=== PATIENT | male | born 1940 | race Caucasian/White ===

== ENCOUNTER 2021-06-04 01:10 | Day surgery (SDC) | payer MEDICARE, OTHER, SELFPAY ==
[2021-05-22 14:16] VITALS: BMI 26.0
--- NOTE | 2021-06-04 08:30 | P.CONGI_ITS ---
Assessment and Plan Assessment and plan (1) Dysphagia: Code(s): R13.10 - Dysphagia, unspecified Status: Acute Assessment and Plan: Patient has difficulty swallowing. Food appears to hang up in the throat are a. His this is suspicious for narrowing of the esophagus. Plan is for EGD to assess more thoroughly. It additional suggestions will be given after endoscopy. GI Consult Note Consult date/time: 06/04/21 08:30 HPI: Elpidio Wong is a 80 year old male Presents for EGD. Patient complains of difficulty swallowing for several years. He states the food will hang up in his throat. States he sometimes will have trouble breathing. He will have a small cough and half to clear his throat. He states passing liquids with no difficulty. Food itself will pass if he accompanies liquids with that. Patient denies any bleeding. He denies any weight loss. He denies any pain. He has had no heartburn or known history of acid reflux disease. Patient presents for EGD to evaluate more thoroughly. Review of Systems Review of Systems: All systems reviewed & are unremarkable except as noted in HPI and below PMFSH Past Medical History Medical History Cognitive impairment, mild, so stated Major depressive disorder, single episode, unspecified Primary generalized (osteo)arthritis Vitamin D deficiency Surgical History Surgical History History of bilateral knee replacement History of carpal tunnel release Family History Family History Sibling Patient's sister is in good health Family history of lung cancer, Onset Age: 76 Patient's brother is Father Family history of malignant neoplasm, Onset Age: 89 Patient's father is Mother Patient's mother is Social History Social History Smoking packs per day: 0.5 Smoking cigarettes per day: 10.0 Years smoked: 30 Smoking pack-years: 15.00 Smoking status: Never smoker Tobacco type: cigarettes Smokeless tobacco user: chewing tobacco Smoking end date: 11/29/69 Alcohol intake: current Drinks per week: 14 Living arrangements: with family Spiritual care concerns: No Meds Home Medications and Allergies Home Medications Medication Instructions Recorded Confirmed Type donepezil 5 mg tablet 5 mg PO ONCE 10/31/19 05/22/21 History levothyroxine 50 mcg tablet 50 mcg PO DAILY 10/31/19 05/22/21 History aspirin 325 mg tablet 325 mg PO DAILY 07/31/20 05/22/21 History citalopram 20 mg tablet 20 mg PO DAILY #90 tablet 02/11/21 05/22/21 Rx gabapentin 300 mg capsule 300 mg PO TID #90 cap 06/03/21 06/04/21 Rx Allergies Allergy/AdvReac Type Severity Reaction Status Date / Time No Known Allergies Allergy Unknown Verified 06/04/21 08:30 Exam Narrative: Exam Narrative: Physical exam reveals patient be alert. Vital signs stable. HEENT exam is unremarkable. Patient is anicteric. Lungs are clear to auscultation and percussion. Heart is without murmur or extra sounds. Abdominal exam bowel sounds are present soft nontender with no hepatosplenomegaly. Rectal exam is deferred today.
[2021-06-04 08:31] VITALS: BP 125/91; PULSE 51; RESP 20; TEMP 35.8; O2SAT 98; BMI 26.7
[2021-06-04] MEDS: LACTATED RINGERS 1,000 ML 150 ML IV CONT (08:39)
[2021-06-04] MEDS: AMPICILLIN 2 GM/NS 100 ML 2 GM/100 ML BAG IVPB (08:43)
[2021-06-04] MEDS: GENTAMICIN 80MG/SOD CHL 50 ML 80 MG/50 ML BAG 100 MG IVPB (09:12)
--- NOTE | 2021-06-04 09:13 | WPDANESEPPF ---
Anes - Initial Pre Proc Eval Procedure: Operation Date: 06/04/21 09:30 Proposed Procedures p Esophagogastroduodenoscopy - Gualberto Neff MD Date/Time: 06/04/21 09:13 Surgeon: Gualberto Neff MD Pre Op Diagnosis: dysphagia Patient Data Age: 80 Gender: M Height: 1.75 m Weight: 82.2 kg Last Vital Signs Temp 96.4 F L 06/04/21 08:31 Pulse 51 L 06/04/21 08:31 Resp 20 06/04/21 08:31 BP 125/91 H 06/04/21 08:31 Pulse Ox 98 06/04/21 08:31 Allergies Allergy/AdvReac Type Severity Reaction Status Date / Time No Known Allergies Allergy Unknown Verified 06/04/21 08:30 Home Medications Medication Instructions Recorded Confirmed Type donepezil 5 mg tablet 5 mg PO ONCE 10/31/19 05/22/21 History levothyroxine 50 mcg tablet 50 mcg PO DAILY 10/31/19 05/22/21 History aspirin 325 mg tablet 325 mg PO DAILY 07/31/20 05/22/21 History citalopram 20 mg tablet 20 mg PO DAILY #90 tablet 02/11/21 05/22/21 Rx gabapentin 300 mg capsule 300 mg PO TID #90 cap 06/03/21 06/04/21 Rx Patient hx anesthesia problems: none Family hx anesthesia problems: none PMFSH Past Medical History Medical History Cognitive impairment, mild, so stated Major depressive disorder, single episode, unspecified Primary generalized (osteo)arthritis Vitamin D deficiency Surgical History Surgical History History of bilateral knee replacement History of carpal tunnel release Family History Family History Sibling Patient's sister is in good health Family history of lung cancer, Onset Age: 76 Patient's brother is Father Family history of malignant neoplasm, Onset Age: 89 Patient's father is Mother Patient's mother is Social History Social History Smoking packs per day: 0.5 Smoking cigarettes per day: 10.0 Years smoked: 30 Smoking pack-years: 15.00 Smoking status: Never smoker Tobacco type: cigarettes Smokeless tobacco user: chewing tobacco Smoking end date: 11/29/69 Alcohol intake: current Drinks per week: 14 Living arrangements: with family Spiritual care concerns: No Anes - Eval Final PreProcedure Day of Procedure 06/04/21 09:13 Patient weight: overweight Heart: regular rate and rhythm Lungs: clear to auscultation Airway: Mallampati scale class II Neurological: alert and oriented Last oral intake: >/= 8 hours ASA classification: III Emergent: no Anesthetic plan: proceed Anesthesia type and monitoring: general GIVS and standard monitoring Informed Consent: The patient's anesthetic plan and its attendant risks and benefits were discussed with the patient/family/POA. Questions were solicited and answers provided to the satisfaction of the patient/family/POA.
[2021-06-04 09:36] VITALS: BP 122/58; PULSE 55; RESP 18; O2SAT 98
[2021-06-04 09:46] VITALS: BP 118/62; PULSE 50; RESP 20; O2SAT 98
[2021-06-04 09:56] VITALS: BP 129/63; PULSE 52; RESP 17; O2SAT 98
== END 2021-06-04 10:22 | disposition home or self-care (01) ==
PROVIDERS: PCP Internal Medicine; Visit Provider Internal Medicine Gastroenterology
PROC: 0DJ08ZZ Inspection of Upper Intestinal Tract, Via Natural or Artificial Opening Endoscopic (ICD-10-PCS; CPT 43235; principal; 2021-06-04 09:30)
DX: Q39.4 Esophageal web (principal); E55.9 Vitamin D deficiency, unspecified; F32.9 Major depressive disorder, single episode, unspecified; G31.84 Mild cognitive impairment of uncertain or unknown etiology; M19.90 Unspecified osteoarthritis, unspecified site; Z87.891 Personal history of nicotine dependence; Z79.82 Long term (current) use of aspirin
CPT/HCPCS: 43450; 43235; J0290; J1580; J2704; J7120

== ENCOUNTER 2021-12-17 10:02 | Outpatient (CLI) | payer MEDICARE, OTHER, SELFPAY ==
--- NOTE | 2021-12-17 11:00 | NEURO_ITS ---
Impression: # Complains of numbness of both hands. Has arthritic hands. # Bilateral Carpal Tunnel Syndrome, right more than left. # No ulnar neuropathy. # Abnormal needle/EMG exam. Nerve Conduction Studies Anti Sensory Summary Table Stim Site NR Peak (ms) P-T Amp (?V) Site1 Site2 Delta-P (ms) Dist (cm) Paulie (m/s) Left Median Anti Sensory (2-3nd Digit) Wrist 4.8 21.1 Wrist 2-3nd Digit 4.8 14.0 29 Wrist 4.1 13.7 Wrist 2-3nd Digit 4.8 14.0 29 Right Median Anti Sensory (2-3nd Digit) Wrist 6.0 26.0 Wrist 2-3nd Digit 6.0 14.0 23 Wrist 4.6 18.0 Wrist 2-3nd Digit 6.0 14.0 23 Left Radial Anti Sensory (Base 1st Digit) Wrist 2.5 9.2 Wrist Base 1st Digit 2.5 0.0 Right Radial Anti Sensory (Base 1st Digit) Wrist 3.3 12.5 Wrist Base 1st Digit 3.3 0.0 Left Ulnar Anti Sensory (5th Digit) Wrist 2.9 29.4 Wrist 5th Digit 2.9 14.0 48 Right Ulnar Anti Sensory (5th Digit) Wrist 2.8 16.0 Wrist 5th Digit 2.8 14.0 50 Motor Summary Table Stim Site NR Onset (ms) O-P Amp (mV) Site1 Site2 Delta-0 (ms) Dist (cm) Paulie (m/s) Left Median Motor (Abd Poll Brev) Wrist 4.4 2.3 Elbow Wrist 6.1 32.0 52 Elbow 10.5 3.1 Right Median Motor (Abd Poll Brev) Wrist 5.3 1.7 Elbow Wrist 5.9 29.0 49 Elbow 11.2 1.4 Left Ulnar Motor (Abd Dig Minimi) Wrist 2.7 5.6 A Elbow Wrist 6.1 32.0 52 A Elbow 8.8 3.8 Right Ulnar Motor (Abd Dig Minimi) Wrist 2.9 3.2 A Elbow Wrist 5.7 31.0 54 A Elbow 8.6 2.9 F Wave Studies NR F-Lat (ms) L-R F-Lat (ms) Left Median (Mrkrs) (Abd Poll Brev) 29.68 0.70 Right Median (Mrkrs) (Abd Poll Brev) 28.98 0.70 Left Ulnar (Mrkrs) (Abd Dig Min) 25.89 0.25 Right Ulnar (Mrkrs) (Abd Dig Min) 25.64 0.25 EMG Side Muscle Nerve Root Ins Act Fibs Amp Dur Recrt Comment Right 1stDorInt Ulnar C8-T1 Nml Nml Nml Nml Nml Right Ext Indicis Radial (Post Int) C7-8 Nml Nml Nml Nml Nml Right Ext Digitorum Radial (Post Int) C7-8 Nml Nml Nml Nml Nml Right BrachioRad Radial C5-6 Nml Nml Nml Nml Nml Right PronatorTeres Median C6-7 Nml Nml Nml Nml Nml Right Abd Poll Brev Median C8-T1 Nml Nml Nml >12ms Reduced Left 1stDorInt Ulnar C8-T1 Nml Nml Nml Nml Nml Left Ext Indicis Radial (Post Int) C7-8 Nml Nml Nml Nml Nml Left Ext Digitorum Radial (Post Int) C7-8 Nml Nml Nml Nml Nml Left BrachioRad Radial C5-6 Nml Nml Nml Nml Nml Left PronatorTeres Median C6-7 Nml Nml Nml Nml Nml Left Abd Poll Brev Median C8-T1 Nml Nml Nml Nml Nml Right ABD Dig Min Ulnar C8-T1 Nml Nml Nml Nml Nml Right Abd Poll Long Radial (Post Int) C7-8 Nml Nml Nml Nml Nml Left ABD Dig Min Ulnar C8-T1 Nml Nml Nml Nml Nml Left Abd Poll Long Radial (Post Int) C7-8 Nml Nml Nml >12ms Reduced MTDD
== END 2021-12-17 10:03 | disposition home or self-care (01) ==
PROVIDERS: PCP Internal Medicine; Visit Provider Psychiatry & Neurology Neurology
DX: G56.03 Carpal tunnel syndrome, bilateral upper limbs (principal); R94.131 Abnormal electromyogram [EMG]
CPT/HCPCS: 95886; 95911

== ENCOUNTER 2022-04-27 16:45 | Emergency (ER) | payer MEDICARE, OTHER, SELFPAY ==
--- NOTE | ~2022-04-27 | XR_ITS ---
XR forearm LT 2V 04/27/2022 17:05 INDICATION: Left forearm pain PROCEDURE: 2 views left forearm COMPARISON: 02/26/2022 FINDINGS: Fracture, dislocation or subluxation is not identified. Osteopenia. The soft tissues appear within normal limits. No foreign bodies are identified. 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 There is a intramedullary nubia transfixing the ulna. IMPRESSION: 1: NO ACUTE BONE OR JOINT ABNORMALITY IDENTIFIED. Reviewed, dictated and finalized at location A.
--- NOTE | 2022-04-27 16:48 | ED.EXTPRO ---
HPI - Extremity Problem General Stated complaint: Left elbow Time Seen by Provider: 04/27/22 16:58 Source: patient and RN notes reviewed Mode of arrival: ambulatory Limitations: no limitations History of Present Illness HPI Narrative: 81-year-old male presents with concern for left elbow injury. Reports 1 hour ago he tripped on a rug, landed on the elbow on a carpeted floor. He reports history of previous injury in the elbow for which she had surgery. He reports 0/10 pain at rest, 8/10 pain with range of motion. Reports medial tenderness to the joint. He denies lacerations, abrasions, bruising, swelling, redness, warmth. Complaint: extremity pain Related Data Home Medications Medication Instructions Recorded Confirmed aspirin 325 mg tablet 325 mg PO DAILY 07/31/20 04/20/22 tamsulosin 0.4 mg capsule cap PO 04/27/22 Allergies Allergy/AdvReac Type Severity Reaction Status Date / Time No Known Allergies Allergy Unknown Verified 04/20/22 14:04 Review of Systems Review of Systems: CONSTITUTIONAL: Denies malaise, chills, sweats, or fever. CARDIOVASCULAR: Denies chest pain, palpitations, or edema. RESPIRATORY: Denies cough or dyspnea. SKIN: Denies rash or itching, bruising, redness, swelling. MUSCULOSKELETAL: Reports left elbow pain NEUROLOGIC: Denies numbness, weakness All systems reviewed & are unremarkable except as noted in HPI and below PMFSH Past Medical History Medical History Arthritis Claustrophobia Cognitive impairment, mild, so stated Hearing loss Major depressive disorder, single episode, unspecified Pacemaker Primary generalized (osteo)arthritis SOB (shortness of breath) on exertion Vitamin D deficiency Wears glasses Surgical History Surgical History History of bilateral knee replacement History of carpal tunnel release History of heart valve replacement aortic valve Family History Family History Sibling Patient's sister is in good health Family history of lung cancer, Onset Age: 76 Patient's brother is Father Family history of malignant neoplasm, Onset Age: 89 Patient's father is Mother Patient's mother is Social History Social History Smoking status: Former smoker Tobacco type: cigarettes Smokeless tobacco user: chewing tobacco Smoking end date: 11/29/69 Alcohol intake: current Drinks per week: 6 Substance use: never Substance use type: does not use Gender identity (if verbalized by the patient): Male Spiritual care concerns: No Comments At time of signature, agree with nursing past medical, surgical, social and family history. There is no relevant family history pertinent to the presenting complaint Exam Narrative: GENERAL: Well-appearing, well-nourished, and in no acute distress. HEAD: Normocephalic, atraumatic. EYES: PERRLA, conjunctivae clear NECK: Supple. CHEST: Speaks in full sentences. No respiratory distress. HEART: Regular rate and rhythm. Normal and equal peripheral pulses. EXTREMITIES: Left elbow, hand, digits have normal strength and sensation, normal range of motion. No edema or ecchymosis. 5/5 strength with elbow, wrist and digit flexion and extension. Normal sensation with sensitivity to light touch and pain. Medial elbow tenderness. No open wounds, no skin tenting, no devitalized tissue or atrophy, no trophic changes, no obvious deformity, alignment normal, nearby joints and structures intact. Distal pulses palpable and equal bilaterally, skin warm, dry, pink. Capillary refill less than 3 seconds. SKIN: Warm, dry, no rash. NEURO: Alert and oriented x3. PSYCH: Normal mood and affect Course Course Emergency Course: Patient is aware of diagnosis, understands and agrees to treatme
[2022-04-27 17:02] VITALS: BP 103/48; PULSE 64; RESP 16; TEMP 36.3; O2SAT 98
== END 2022-04-27 17:30 | disposition home or self-care (01) ==
PROVIDERS: Emergency Provider Nurse Practitioner; PCP Internal Medicine
DX: S53.402A Unspecified sprain of left elbow, initial encounter (principal); W18.09XA Striking against other object with subsequent fall, initial encounter; M19.90 Unspecified osteoarthritis, unspecified site; Z95.0 Presence of cardiac pacemaker; F40.240 Claustrophobia
CPT/HCPCS: 73090; 99213; A4565; G0463

== ENCOUNTER → 2022-06-24 07:44 | Outpatient (CLI) | payer MEDICARE, OTHER, SELFPAY ==
--- NOTE | ~2022-06-24 | XR_ITS ---
EXAMINATION: XR lumbar spine 2-3V DATE: 06/24/2022 08:05 INDICATION: Low back pain TECHNIQUE: Anteroposterior and lateral views of the lumbar spine, and cone-down lateral view of the l umbosacral junction were obtained. COMPARISON: CT, 10/09/2015 FINDINGS: There are 2 mm of retrolisthesis of L2 on L3. The vertebral body heights are normal. There is no fracture. There is mild loss of intervertebral disc space height at L5-S1. Small degenerative o steophytes project from the anterior endplates of multiple vertebral bodies. Moderate facet osteoarth ritis is noted in the lower lumbar spine. IMPRESSION: 1. Moderate lumbar spondylosis without acute findings or significant interval change. Reviewed, dictated and finalized at location B. IMPRESSION: 1. Moderate lumbar spondylosis without acute findings or significant interval nayeli yung
== END ==
PROVIDERS: PCP Internal Medicine; Visit Provider Nurse Practitioner
DX: M47.817 Spondylosis without myelopathy or radiculopathy, lumbosacral region (principal)
CPT/HCPCS: 72100

== ENCOUNTER 2022-11-19 14:16 | Emergency (ER) | payer MEDICARE, SELFPAY ==
--- NOTE | ~2022-11-19 | XR_ITS ---
AP view of the pelvis and AP and lateral views of the right hip Clinical history: Pain Findings: No acute fracture or dislocation is seen. Osseous alignment is anatomic. Bilateral hip and SI joint spaces are preserved. Vascular calcifications noted. Impression: No significant abnormality is seen. Reviewed, dictated and finalized at [facility]. ING MACHINE OPERATOR Impression: No significant abnormality is seen.
--- NOTE | ~2022-11-19 | XR_ITS ---
AP and lateral views of the right femur Clinical History: Pain Findings: No acute fracture or dislocation is seen. Osseous alignment is anatomic. Right hip joint sp mavis is preserved. Right total knee arthroplasty hardware noted. Vascular calcifications are present. Impression: No acute abnormality. Right knee arthroplasty hardware present. Reviewed, dictated and finalized at [facility]. MANAGER Impression: No acute abnormality. Right knee arthroplasty hardware present.
--- NOTE | 2022-11-19 14:26 | ED.LOWEXIN ---
HPI - Extremity Injury (Lower) General Chief Complaint: Extremity Injury, Lower Stated Complaint: fall and injury to right thigh Time Seen by Provider: 11/19/22 14:26 Source: patient, RN notes reviewed and old records reviewed Mode of arrival: ambulatory Limitations: no limitations History of Present Illness HPI Narrative: 82-year-old male presents to the [facility] after slipping and falling landing on his right hip and thigh. Denies hitting head. No loss of consciousness. Denies any chest pain or abdominal pain. Took some ibuprofen applied ice prior to arrival. Related Data Home Medications Medication Instructions Recorded Confirmed aspirin 325 mg tablet 325 mg PO DAILY 07/31/20 11/19/22 Allergies Allergy/AdvReac Type Severity Reaction Status Date / Time No Known Allergies Allergy Unknown Verified 11/19/22 14:17 Review of Systems Review of Systems: All systems reviewed & are unremarkable except as noted in HPI and below Constitutional: Constitutional: Reports no additional constitutional complaints Eyes: Eyes: Reports no additional eye complaints ENT: Reports system reviewed and no additional complaints, except as documented Cardiovascular: Cardiovascular: Reports no additional cardiovascular complaints, Denies chest pain and Denies dyspnea Respiratory: Respiratory: Reports no additional respiratory complaints, Denies chest congestion, Denies cough and Denies dyspnea Gastrointestinal: Gastrointestinal: Reports no additional gastrointestinal complaints, Denies abdominal pain, Denies nausea and Denies vomiting Musculoskeletal: Musculoskeletal: Reports as per HPI Integumentary/Breasts: Skin/Breast: Reports system reviewed and no additional complaints, except as docu Neurologic: Reports system reviewed and no additional complaints, except as documented Psychiatric: Psychiatric: Reports no additional psychiatric complaints Allergic/Immunologic: Allergic/Immunologic: Reports no additional allergic/immunologic complaints [facility] Past Medical History Medical History Aortic valvular stenoses Arthritis Carpal tunnel syndrome on both sides Claustrophobia Cognitive impairment, mild, so stated Complete heart block Hearing loss Major depressive disorder, single episode, unspecified Pacemaker Primary generalized (osteo)arthritis SOB (shortness of breath) on exertion Vitamin D deficiency Wears glasses Surgical History Surgical History History of bilateral knee replacement History of carpal tunnel release History of heart valve replacement aortic valve Family History Family History Sibling Patient's sister is in good health Family history of lung cancer, Onset Age: 76 Patient's brother is Father Family history of malignant neoplasm, Onset Age: 89 Patient's father is Mother Patient's mother is Social History Social History Smoking status: Former smoker Tobacco type: cigarettes Smokeless tobacco user: chewing tobacco Smoking end date: 11/29/69 Alcohol intake: current Drinks per week: 6 Substance use: never Substance use type: does not use Lack of Transportation: No Lack of Food: Never True Current Housing: I Have Housing Concerned About Future Housing: No Difficulty Paying Gas/Electric Bills: No Difficulty Paying for Meds: No Currently Unemployed: No Education: Trade/Vocational Certificate Difficulty w/ Childcare or Family Care: No Gender identity (if verbalized by the patient): Male Spiritual care concerns: No Comments At the time of my signature, I reviewed and agree with the nursing past medical, surgical, social, and family history. There is no relevant family history pertinen
[2022-11-19 14:27] VITALS: BP 160/57; PULSE 62; RESP 18; TEMP 36.5; O2SAT 100
== END 2022-11-19 15:35 | disposition home or self-care (01) ==
PROVIDERS: Emergency Provider Nurse Practitioner; PCP Internal Medicine
DX: S80.11XA Contusion of right lower leg, initial encounter (principal); Z79.82 Long term (current) use of aspirin; Z87.891 Personal history of nicotine dependence; W01.0XXA Fall on same level from slipping, tripping and stumbling without subsequent striking against object, initial encounter
CPT/HCPCS: 73502; 73552; 99214; G0463

== ENCOUNTER 2023-03-26 18:58 | Emergency (ER) | payer MEDICARE, SELFPAY ==
--- NOTE | ~2023-03-26 | XR_ITS ---
EXAMINATION: XR shoulder RT min 2V DATE: 03/26/2023 19:07 INDICATION: Right shoulder pain. Fall. TECHNIQUE: 3 views of right shoulder were obtained. COMPARISON: None. FINDINGS: There is an oblique fracture of right clavicle involving its distal third. The distal fract ure fragment demonstrates 6 mm superior displacement. There is heterotopic ossification in the area o f coracoclavicular ligament. There is severe osteoarthritis of acromioclavicular joint and moderate o steoarthritis of glenohumeral joint. There is a loose body in the glenohumeral joint. There is calcif ic tendinitis of the rotator cuff. Mediastinal wires are noted. Partially visualized are pacer wires. IMPRESSION: 1. Oblique fracture of distal clavicle. 2. Polyarticular osteoarthritis. 3. Loose body in the glenohumeral joint. 4. Calcific tendinitis of the rotator cuff. Reviewed, dictated and finalized at location E.
[2023-03-26 19:09] VITALS: BP 138/53; PULSE 58; RESP 18; TEMP 36.4; O2SAT 98
--- NOTE | 2023-03-26 19:14 | ED.UPPEXIN ---
HPI - Extremity Injury (Upper) General Chief Complaint: Extremity Injury, Upper Stated Complaint: R SHOULDER INJURY Time Seen by Provider: 03/26/23 19:14 Source: patient Mode of arrival: ambulatory Limitations: no limitations History of Present Illness HPI narrative: 82-year-old male presents with complaint of pain to right clavicle. Patient reports that he was in his garage today and tripped over a few boxes. Injury happened around noon. States he was not able to put his arms out in front of him to break his fall fast enough and fell on to his right shoulder. Denies hitting head. No LOC. Was able to get up on his own. Distal neurovascularly intact to right upper extremity. Ambulatory with steady gait. All systems reviewed and negative except as noted above. Related Data Home Medications Medication Instructions Recorded Confirmed aspirin 325 mg tablet 81 mg PO DAILY 03/15/23 03/26/23 Allergies Allergy/AdvReac Type Severity Reaction Status Date / Time No Known Allergies Allergy Unknown Verified 03/15/23 12:45 Review of Systems Review of Systems: CONSTITUTIONAL: Denies fever, chills, or sweats. EYES: Denies visual changes, redness, or discharge. ENT: Denies rhinorrhea, congestion, sore throat, or otalgia. CARDIOVASCULAR: Denies chest pain, palpitations, or edema. RESPIRATORY: Denies cough or dyspnea. GASTROINTESTINAL: Denies abdominal pain, nausea, vomiting, or diarrhea. GENITOURINARY: Denies dysuria or hematuria. SKIN: Denies rash or itching. MUSCULOSKELETAL: Denies back pain, joint pain, or myalgia. Reports pain to right clavicle. NEUROLOGIC: Denies headache, numbness, or weakness. PSYCHIATRIC: Denies anxiety or depression. All other systems reviewed are negative, except as documented in HPI. [facility] Past Medical History Medical History Aortic valvular stenoses Arthritis Carpal tunnel syndrome on both sides Claustrophobia Cognitive impairment, mild, so stated Complete heart block Hearing loss Major depressive disorder, single episode, unspecified Pacemaker Primary generalized (osteo)arthritis SOB (shortness of breath) on exertion Vitamin D deficiency Wears glasses Surgical History Surgical History History of bilateral knee replacement History of carpal tunnel release History of heart valve replacement aortic valve Family History Family History Sibling Patient's sister is in good health Family history of lung cancer, Onset Age: 76 Patient's brother is Father Family history of malignant neoplasm, Onset Age: 89 Patient's father is Mother Patient's mother is Social History Social History Smoking status: Former smoker Tobacco type: cigarettes Smokeless tobacco user: chewing tobacco Smoking end date: 11/29/69 Alcohol intake: current Drinks per week: 6 Substance use: never Substance use type: does not use Lack of Transportation: No Lack of Food: Never True Current Housing: I Have Housing Concerned About Future Housing: No Difficulty Paying Gas/Electric Bills: No Difficulty Paying for Meds: No Currently Unemployed: No Education: Trade/Vocational Certificate Difficulty w/ Childcare or Family Care: No Living arrangements: with family Occupation/Education: retired Gender identity (if verbalized by the patient): Male Spiritual care concerns: No Comments At time of signature, agree with nursing past medical, surgical, social and family history. There is no relevant family history pertinent to the presenting complaint. Exam Narrative: GENERAL: This is a well-nourished, well-developed patient, in no apparent distress. HEAD: normocephalic, atraumatic. EYES: PERRL. Sclera colin
== END 2023-03-26 19:33 | disposition home or self-care (01) ==
PROVIDERS: Emergency Provider Nurse Practitioner Family
DX: S42.031A Displaced fracture of lateral end of right clavicle, initial encounter for closed fracture (principal); W18.09XA Striking against other object with subsequent fall, initial encounter; M19.90 Unspecified osteoarthritis, unspecified site; Z95.0 Presence of cardiac pacemaker; Z79.82 Long term (current) use of aspirin; Z96.653 Presence of artificial knee joint, bilateral; Z95.2 Presence of prosthetic heart valve
CPT/HCPCS: 73030; 99213; A4565; G0463

== ENCOUNTER 2023-05-28 07:42 | Outpatient (CLI) | payer MEDICARE, SELFPAY ==
--- NOTE | ~2023-05-28 | CT_ITS ---
CT ANGIOGRAM NECK AND HEAD History: Aneurysm. Technique: Axial noncontrast imaging of the brain was performed. Serial spiral axial images through t he head and neck were then obtained during arterial phase IV injection of 100 cc of Omnipaque 350. 3- D postprocessing and MIP images were then reconstructed on the remote workstation. Dose reduction renita hnique was used on this scan by utilizing automated exposure control and iterative reconstruction renita hnique. The dose-length product (DLP) was 1566.14 mGy-cm. CTA neck findings: Bilateral vertebral arteries are patent. Bilateral common carotid, internal carot id, and external carotid arteries are patent. No large vessel occlusion. No aneurysm identified. Ther e is extensive calcified plaque at the right carotid bifurcation and proximal right ICA, with focal h igh-grade, approximately 95%, stenosis at the origin of the right internal carotid artery. There is a lso extensive calcified plaque at the left carotid bifurcation and proximal left internal carotid art acosta, with probable moderate, approximately 60%, stenosis at the proximal left internal carotid artery . The proximal right internal carotid artery demonstrates 95% stenosis relative to the normal distal ar hipolito lumen diameter. The proximal left internal carotid artery demonstrates 60% stenosis relative to the normal distal artery lumen diameter. Partially imaged bilateral pleural effusions are noted. CTA head findings: Distal vertebral arteries, basilar artery, and posterior cerebral arteries are pat ent. Distal internal carotid arteries, middle cerebral arteries, and anterior cerebral arteries are p atent. No large vessel occlusion. No stenosis or aneurysm. Axial noncontrast imaging of the brain is unremarkable. No mass lesion, infarct, or hemorrhage identi fied. Ventricles and subarachnoid spaces are unremarkable. Paranasal sinuses and mastoid air cells ar e clear. Impression: No aneurysm. High-grade (95%) stenosis at the origin of the right internal carotid artery, with extensive calcifie d plaque. Moderate grade (60%) stenosis at the proximal left internal carotid artery, with extensive calcified plaque. Partially imaged bilateral pleural effusions. Reviewed, dictated and finalized at location M. Impression: No aneurysm. High-grade (95%) stenosis at the origin of the right internal carotid artery, w ith extensive calcified plaque. Moderate grade (60%) stenosis at the proximal left internal carotid artery, wit h extensive calcified plaque. Partially imaged bilateral pleural effusions.
== END 2023-05-28 07:43 | disposition home or self-care (01) ==
PROVIDERS: PCP Family Medicine; Visit Provider Psychiatry & Neurology Neurology
DX: I65.23 Occlusion and stenosis of bilateral carotid arteries (principal); J90 Pleural effusion, not elsewhere classified
CPT/HCPCS: 70496; 70498; Q9967

== ENCOUNTER 2023-06-01 15:48 | Inpatient (IN) | payer MEDICARE, SELFPAY ==
[2023-06-01] VITALS (12 sets, daily range): BP systolic 112–139; BP diastolic 40–49; PULSE 54–120; RESP 17–21; TEMP 36.4–36.8; O2SAT 95–99
--- NOTE | ~2023-06-01 | US_ITS ---
EXAMINATION: US venous doppler [facility] DATE: 06/02/2023 13:06 INDICATION: Lower limb swelling TECHNIQUE: Grayscale ultrasound images without and with compression and Doppler ultrasound images of the bilateral lower extremity veins were obtained. COMPARISON: None. FINDINGS: The visualized portions of right common femoral vein, profunda (deep) femoral vein, femoral vein, pop liteal vein, posterior tibial veins, peroneal veins, gastrocnemius vein and greater saphenous vein ou tflow are patent. The visualized portions of left common femoral vein, profunda femoral vein, femoral vein, popliteal v ein, posterior tibial veins, peroneal veins, gastrocnemius vein and greater saphenous vein outflow ar e patent. IMPRESSION: 1. No deep venous thrombosis in either lower limb. Reviewed, dictated and finalized at location B.
--- NOTE | ~2023-06-01 | XR_ITS ---
Clinical Indication: Shortness of breath PA and lateral views of the chest: Comparison: 06/25/2019 Findings: There is mild bibasilar haziness/interstitial prominence. Probable minimal left pleural eff usion.. Cardiomediastinal silhouette is stable, now with pacemaker device. Bones and soft tissues ar e unremarkable. Impression: Probable mild bibasilar pulmonary edema versus chronic interstitial disease. Correlate clinically. Minimal left pleural effusion. Pacemaker device. Reviewed, dictated and finalized at location . Impression: Probable mild bibasilar pulmonary edema versus chronic interstitial disease. Co rrelate clinically. Minimal left pleural effusion. Pacemaker device.
--- NOTE | 2023-06-01 15:51 | ECG_ITS ---
Measurements Intervals [place] Rate: 62 P: -3 SC: 132 QRS: -68 QRSD: 210 T: 104 QT: 492 QTc: 502 Interpretive Statements ATRIAL SENSE- ELECTRONIC VENTRICULAR PACEMAKER BASELINE ARTIFACT- I, AVR NO FURTHER INTERPRETATION IS POSSIBLE ATYPICAL ECG COMPARED TO ECG 06/25/2019 22:14:59 VENTRICULAR PACEMAKER NOW PRESENT Electronically Signed On 06-01-2023 19:16:39 CDT by Tor Alba D.O.
[2023-06-01 16:13] LABS: Basophils Percent Auto 0.4 % (0.2-1.2); Eosinophils Absolute Auto 0.3 K/mm3 (0-0.3); Hematocrit 39.3 % (42.0-52.0); Hemoglobin 12.8 g/dL (14.0-18.0); Immature Granulocyte Absolute 0.01 K/mm3 (0.00-0.031); Immature Granulocyte Percent A 0.2 % (0-0.5); Lymphocytes Absolute Auto 1.66 K/mm3 (0.9-3.2); Mean Corpuscular HGB Conc 32.6 g/dl (32-36); Mean Corpuscular Hemoglobin 30.6 pg (26-34); Monocytes Absolute Auto 0.4 K/mm3 (0.1-0.6); Monocytes Percent Auto 7.7 % (2.6-8.5); Neutrophils Absolute Auto 2.8 K/mm3 (1.3-6.7); Neutrophils Percent Auto 53.7 % (45.5-73.1); Platelet Count Result 158 k/mm3 (150-375); Red Blood Count 4.18 M/mm3 (4.6-6.20); Red Cell Distribution Width 14.8 % (11.5-14.5); White Blood Count 5.2 K/mm3 (4.5-10.0)
[2023-06-01 16:20] LABS: INR 1.3; Prothrombin Time 17.2 Seconds (11.1-14.7)
[2023-06-01 16:21] LABS: Partial Thromboplastin Time 44.6 SECONDS (22.3-36.8)
--- NOTE | 2023-06-01 16:29 | ED.SOB ---
HPI - SOB/Dyspnea General Chief Complaint: Shortness of Breath/Dyspnea Stated Complaint: SOB- has heart problems Time Seen by Provider: 06/01/23 15:57 Source: patient Mode of arrival: ambulatory Limitations: no limitations History of Present Illness HPI Narrative: 82 years old white male came from home by private car complaining of shortness of breath for the last 4 days. Today is steady, worse on exertion, rest probably make it less prominent. Also complaining of tightness at the left chest. History of aortic valve replacement 2010, pacemaker 1-1/2 years ago, hypothyroidism, hyperlipidemia currently on aspirin. Patient also on Eliquis for 1-1/2-year ago for study. He drinks alcohol daily, denies smoking or using drugs. He denies any fever, chills, nausea, vomiting, diarrhea, constipation, abdominal pain, coughing, runny nose, sneezing, postnasal discharge. Related Data Home Medications Medication Instructions Recorded Confirmed aspirin 81 mg capsule 81 mg PO DAILY 04/13/23 05/25/23 Allergies Allergy/AdvReac Type Severity Reaction Status Date / Time No Known Allergies Allergy Unknown Verified 06/01/23 16:43 Review of Systems Review of Systems: All systems reviewed & are unremarkable except as noted in HPI and below PMFSH Past Medical History Medical History Aortic valvular stenoses Arthritis Arthritis of right elbow Carpal tunnel syndrome on both sides Claustrophobia Closed fracture of right clavicle Distal clavicle fracture February 2023 Cognitive impairment, mild, so stated Complete heart block Hearing loss Major depressive disorder, single episode, unspecified Pacemaker Primary generalized (osteo)arthritis SOB (shortness of breath) on exertion Vitamin D deficiency Wears glasses Surgical History Surgical History History of bilateral knee replacement History of carpal tunnel release History of heart valve replacement aortic valve Family History Family History Sibling Patient's sister is in good health Family history of lung cancer, Onset Age: 76 Patient's brother is Father Family history of malignant neoplasm, Onset Age: 89 Patient's father is Mother Patient's mother is Social History Social History Smoking status: Former smoker Tobacco type: cigarettes Smokeless tobacco user: chewing tobacco Smoking end date: 11/29/69 Alcohol intake: current Drinks per week: 6 Substance use: never Substance use type: does not use Lack of Transportation: No Lack of Food: Never True Current Housing: I Have Housing Concerned About Future Housing: No Difficulty Paying Gas/Electric Bills: No Difficulty Paying for Meds: No Currently Unemployed: No Education: High School Diploma/GED Difficulty w/ Childcare or Family Care: No Living arrangements: with family Occupation/Education: retired Gender identity (if verbalized by the patient): Male Spiritual care concerns: No Exam Narrative: General appearance: Well-developed, well-nourished Skin: Normal color Head: Normocephalic, nontraumatic Eyes: Clear conjunctiva ENT: Oropharynx normal, ears normal, nose normal Neck: Supple, nontender Chest and respiratory: Airway patent, no respiratory distress, no accessory muscle use Heart: Regular rate/rhythm Abdomen: Soft, nontender, no organomegaly, quiet bowel sounds Vascular: Normal peripheral pulses, normal capillary refill. Musculoskeletal: Normal range of motion, nontender back Neurologic: Alert and oriented ?3, WELDER REPAIR is normal as tested, no gross motor deficit
[2023-06-01 16:30] LABS: Alanine Aminotransferase 34 U/L (6-50); Albumin Level 4.2 g/dL (3.5-5.1); Alkaline Phosphatase 66 U/L (38-126); Anion Gap 4 mmol/L (8-16); Aspartate Amino Transferase 37 U/L (17-59); Bilirubin,Total 2.1 mg/dL (0.2-1.3); Blood Urea Nitrogen 18 mg/dL (9-20); Calcium 9.2 mg/dL (8.4-10.2); Carbon Dioxide 28 mmol/L (22-30); Chloride 107 mmol/L (98-107); Estimated CRCL calculation 56 ml/min; Estimated Glomerular Filt Rate > 60; Glucose 99 mg/dL (65-110); Potassium 4.2 mmol/L (3.4-5.0); Sodium 139 mmol/L (137-145)
[2023-06-01 16:44] LABS: Alveolar/Arterial O2 Gradient 33.1 mmHg; Base Excess ABG -3.2 mEq/l (+/-2.0); Fractional Inspired Oxygen 21 %; HCO3 ABG 20.6 mEq/l (22.0-26.0); Oxygen Content ABG 17.2 %vol (16.0-22.0); Oxygen Saturation ABG 95.6 % (95.0-100.0); Oxyhemoglobin 93.7 % THb (90.0-100.0); PCO2 ABG 33.2 mmHg (35.0-45.0); PO2 ABG 76.9 mmHg (80.0-100.0); PO2 FiO2 Ratio Arterial Blood 3.66 %
[2023-06-01 16:46] LABS: Device ROOM AIR; Modified Allen's Test Pass; Site Drawn RIGHT RADIAL
[2023-06-01 16:46] LABS: NT Pro B Type Natriuretic Pept 3200 pg/mL (19.9-100); Troponin I 0.097 ng/mL (0.000-0.034)
[2023-06-01] MEDS: NITROGLYCERIN SL 0.4 MG TABLET SUBLINGUAL (17:25)
[2023-06-01] MEDS: ASPIRIN 81 MG CHEWABLE TABLET 324 MG PO (17:26)
--- NOTE | 2023-06-01 18:36 | PM.IMHP ---
H&P: HPI History of Present Illness Date/Time: 06/01/23 19:00 Chief Complaint: Chest pain. 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 The patient provides the following history. 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 It has been constant since the outset though it is not severe enough for him to take analgesics. He has not noticed any aggravating or alleviating factors. Associated symptoms include mild shortness of breath, orthopnea, and some lower extremity edema. He denies syncope, near syncope, pleuritic pain, palpitations, sensations of racing heart, nausea, vomiting, and sweats. Vital signs were stable on arrival to the ED. EKG shows atrial sensed-electronic ventricular pacemaker. Initial troponin was 0.097 and proBNP was 3200. Chest x-ray showed probable mild bibasilar pulmonary edema and minimal left pleural effusion. He is being admitted in this setting for close monitoring and Cardiology consultation. In the ED he was given aspirin 324 mg p.o. and sublingual nitroglycerin which did not seem to make much of a difference. Of note the patient is currently enrolled in a study through [facility] and it sounds as though the study is looking at different direct oral anticoagulants. He takes several medications a day and he is not certain if he is on Eliquis, placebo, or another drug. Review of Systems Review of Systems: Twelve systems were reviewed. No fever, chills, or sweats. No recent cold or flu symptoms. No epistaxis, gingival bleeding, hematemesis, hemoptysis, melena, hematochezia, or hematuria. He recently broke his right collarbone and has been on activity restriction. He has not done any heavy lifting in his not injured himself. He denies indigestion and GERD symptoms. Occasional cramps in legs. No history of venous thromboembolism. Except as documented, all other systems were reviewed and are negative. [facility] Past Medical History Medical History (Updated 06/01/23 @ 22:03 by Fadumo Mercado PA-C) Aortic valvular stenoses Status post porcine aortic valve replacement. Arthritis Claustrophobia Closed fracture of right clavicle (02/2023) Distal clavicle. Complete heart block Status post permanent pacemaker insertion. Facial basal cell cancer Hearing loss Hyperlipidemia Hypothyroidism Major depressive disorder, single episode, unspecified Mild cognitive impairment Vitamin D deficiency Wears glasses Surgical History Surgical History (Updated 06/01/23 @ 21:58 by Fadumo Mercado PA-C) History of aortic valve replacement with bioprosthetic valve History of basal cell carcinoma excision History of bilateral knee replacement History of carpal tunnel release History of open reduction and internal fixation (ORIF) procedure Repair left arm fracture. History of permanent cardiac pacemaker placement Family History Family History Sibling Patient's sister is in good health Family history of lung cancer, Onset Age: 76 Patient's brother is Father Family history of malignant neoplasm, Onset Age: 89 Patient's father is Mother Patient's mother is Social History Social History (Updated 06/01/23 @ 21:59 by Fadumo Mercado PA-C) Social History: Surrogate medical decision maker: Perlita Wong, spouse. Code status: Full code. Smoking packs per day: 0.25 Smoking cigarettes per day: 5.0 Years smoked: 5 Smoking pack-years: 1.25 Smoking status: Former smoker Tobacco type: cigarettes
[2023-06-01 19:21] LABS: Troponin I 0.101 ng/mL (0.000-0.034)
--- NOTE | 2023-06-01 19:41 | PHAR ---
PT'S STUDY MEDICATION HAS BEEN REVIEWED BY PHARMACY. BOTTLE 1: IDENTIFIER ON BOTTLE OLNEY [id number] (UNIDENTIFIABLE) BOTTLE 2: [id number]/ (SUN CHECKED ON BOTTLE) (UNIDENTIFIABLE) BOTTLE 3: [id number]/ (REILLY CHECKED ON BOTTLE) (UNIDENTIFIABLE)
[2023-06-01] MEDS: GABAPENTIN 300 MG CAPSULE PO (22:38)
[2023-06-01] MEDS: ATORVASTATIN 20 MG TABLET PO (22:39)
[2023-06-01] MEDS: FLUTICASONE PROPIONATE 0.05% NA SPR 16 GM BTL (*BKC) 1 SPRAY NASAL (22:47)
[2023-06-02] VITALS (16 sets, daily range): BP systolic 90–163; BP diastolic 42–57; PULSE 52–76; RESP 18–21; TEMP 35.6–36.7; O2SAT 96–100
[2023-06-02 04:28] LABS: Hematocrit 37.4 % (42.0-52.0); Hemoglobin 12.1 g/dL (14.0-18.0); Mean Corpuscular HGB Conc 32.4 g/dl (32-36); Mean Corpuscular Hemoglobin 30.5 pg (26-34); Mean Corpuscular Volume 94.2 fl (80-100); Mean Platelet Volume 11.5 fl (7.4-10.4); Platelet Count Result 151 k/mm3 (150-375); Red Blood Count 3.97 M/mm3 (4.6-6.20); Red Cell Distribution Width 14.8 % (11.5-14.5)
[2023-06-02 04:42] LABS: Anion Gap 5 mmol/L (8-16); Blood Urea Nitrogen 17 mg/dL (9-20); Calcium 8.9 mg/dL (8.4-10.2); Carbon Dioxide 28 mmol/L (22-30); Chloride 107 mmol/L (98-107); Estimated CRCL calculation 56 ml/min; Estimated Glomerular Filt Rate > 60; Glucose 98 mg/dL (65-110); Magnesium 1.9 mg/dL (1.6-2.3); Potassium 4.2 mmol/L (3.4-5.0); Sodium 140 mmol/L (137-145)
--- NOTE | 2023-06-02 06:00 | ECG_ITS ---
Rate NJ QRSd QT QTc P QRS T Severity 54 129 205 513 489 -33 -64 111 No Severity Defined ATRIAL SENSE- ELECTRONIC VENTRICULAR PACEMAKER BASELINE ARTIFACT- V2 NO FURTHER INTERPRETATION IS POSSIBLE ATYPICAL ECG Electronically Signed On 06-02-2023 14:41:15 CDT by Tor Alba D.O. COMPARED TO ECG 06/01/2023 16:01:36 NO SIGNIFICANT CHANGES MTDD
--- NOTE | 2023-06-02 08:00 | ECHO_ITS ---
Patient Info Name: Elpidio Wong Age: 82 years : 1940 Gender: Male Ht: 69 in Wt: 180 lbs BSA: 2.01 m2 HR: 66 bpm BP: 163 / 45 mmHg Heart Rhythm: Sinus Rhythm, Paced Technical Quality: Fair Exam Date: 06/02/2023 11:03 AM Exam Location: [facility] Patient Status: Inpatient Admit Date: 06/01/2023 Staff Ordering Physician: Fadumo Mercado PA-C Rock Splitter: Iveth Dos Santos RDCS Attending Provider: Sav Strong MD Referring Physician: Rogelio NOEL; Exam Type: CA echo doppler color flow Study Info Indications - chest pain/elevated troponin/avr Complete two-dimensional, color flow and Doppler transthoracic echocardiogram is performed. Summary 1. Complete two-dimensional, color flow and Doppler transthoracic echocardiogram is performed. 2. Left ventricular chamber dimension is mildly enlarged. 3. Left ventricular systolic function is mildly reduced, estimated at 40-45%. 4. Left ventricular septal wall motion is abnormal with septal motion related to pacing. 5. The left ventricular diastolic function is grade III diastolic dysfunction. 6. Right ventricular chamber dimension is mildly enlarged. 7. Right ventricular systolic function is reduced. 8. Right atrial chamber dimension is mildly enlarged. 9. There is severe regurgitation of the bioprosthetic aortic valve. 10. There is moderate mitral valve regurgitation. 11. There is moderate tricuspid valve regurgitation. 12. Estimated pulmonary arterial systolic pressure is 53 mmHg. Left Ventricle Left ventricular chamber dimension is mildly enlarged. Left ventricular systolic function is mildly reduced, estimated at 40-45%. There is no increased left ventricular wall thickness. Left ventricular septal wall motion is abnormal with septal motion related to pacing. The left ventricular diastolic function is grade III diastolic dysfunction. Right Ventricle Linear artifact in right ventricle suggestive of catheter(s), pacemaker lead(s), or ICD lead(s). Right ventricular chamber dimension is mildly enlarged. Right ventricular systolic function is reduced. Left Atria Left atrial chamber dimension is normal. Right Atria Linear artifact in the right atrium suggestive of catheter(s), pacemaker lead(s), or ICD lead(s). Right atrial chamber dimension is mildly enlarged. Atrial Septum Intact interatrial septum visualized by color flow imaging. Aortic Valve There is severe regurgitation of the bioprosthetic aortic valve. Pulmonic Valve The pulmonic valve is not well visualized. Mitral Valve The mitral valve has thickened leaflets. There is moderate mitral valve regurgitation. The mitral valve annulus is severely calcified. Tricuspid Valve There is moderate tricuspid valve regurgitation. Estimated pulmonary arterial systolic pressure is 53 mmHg. Pericardium/Pleural There is no pericardial effusion. Inferior Vena Cava Dilated inferior vena cava with >50% collapse upon inspiration consistent with elevated right atrial pressure, 8 mmHg. Aorta The aortic root size at the sinus of Valsalva is normal. Left Ventricular Outflow Tract Name Value Normal LVOT 2D LVOT Diameter 2.0 cm LVOT Doppler LVOT Peak Gradient 4 mmHg
[2023-06-02] MEDS: LEVOTHYROXINE SODIUM 50 MCG TABLET PO (09:41)
[2023-06-02] MEDS: GABAPENTIN 300 MG CAPSULE PO ×3 (09:42→18:09)
[2023-06-02] MEDS: ASPIRIN 81 MG CHEWABLE TABLET PO (09:42)
[2023-06-02] MEDS: CITALOPRAM HYDROBROMIDE 20 MG TABLET PO (09:42)
--- NOTE | 2023-06-02 14:44 | PCCCNOTE ---
On 06/02/23, the student, [Renetta Price], provided care and completed [facility] documentation on this patient. I have reviewed the student's documentation and agree with the findings.
--- NOTE | 2023-06-02 14:56 | PM.IMPN ---
Progress Note: A&P Assessment and Plan (1) Chest pain: Code(s): R07.9 - Chest pain, unspecified Status: Acute Assessment and Plan: The patient presented to the emergency department for evaluation of atypical chest pain and shortness of breath x4 days. EKG shows a paced rhythm. Troponin peaked at 0.1. He is currently on a study drug and may or may not be taking Eliquis or similar medication thus will continue to hold for potential catheterization. ProBNP 3200. CXR showing mild bibasilar edema vs ILD. Echo ordered. Head/neck CTA showing 95% stenosis at the origin of the Rt ICA. Cardiology consulted. May have had AMI a few days ago. Continue ASA, Lipitor. (2) Elevated troponin: Code(s): R77.8 - Other specified abnormalities of plasma proteins Status: Acute Assessment and Plan: As above. Related to CHF? (3) Heart failure, type unknown: Code(s): I50.9 - Heart failure, unspecified Status: Acute Assessment and Plan: Patient with known CHF. [place] he has mild CHF exacerbation with elevated BNP and pulmonary edema. Echo pending. Will give Lasix IV once. (4) Hyperlipidemia: Code(s): E78.5 - Hyperlipidemia, unspecified Status: Acute Assessment and Plan: LFTs okay except Bili 2.1. Continue Lipitor (5) Hypothyroidism: Code(s): E03.9 - Hypothyroidism, unspecified Status: Acute Assessment and Plan: TSH normal. Continue Synthroid. Subjective Date/time seen: 06/02/23 14:56 Interval history: 82yo male with CHF, HLD, AVR, CHB s/p PM and hypothyroidism here for chest pain. Assuming care. Chart reviewed. Patient denies any chest pain shortness of breath this time. Patient does have frequent falls about twice a month. He says he trips over item is on the floor. He states his would not be happy about removing the some of these items. For he has had stress tests in the past but does not recall when his last 1 was. Exam Narrative: AF 96.2 114/47 58 21 98% ra Gen - NARD Chest - left base inspiratory crackles, nml RR CV - RRR S1/S2 with 2/6 systolic murmur USB. Tele showing mostly paced rhythm Abd - Soft, NT/ND, Positive BS Ext - No pedal edema Psych - Nml mood and affect Skin - Warm and dry Objective Data Vital Signs Vital Signs: Vital Signs - 24 hr 06/01/23 15:56 06/01/23 16:00 06/01/23 16:06 Temperature 97.6 F Pulse Rate 69 73 56 L Respiratory Rate 21 H 17 Blood Pressure 139/48 L Pulse Oximetry 96 98 Oxygen Delivery Room Air 06/01/23 17:32 06/01/23 17:45 06/01/23 17:49 Temperature Pulse Rate 65 54 L Respiratory Rate 19 17 Blood Pressure 112/49 L Pulse Oximetry 96 95 Oxygen Delivery Room Air 06/01/23 18:16 06/01/23 18:00 06/01/23 18:39 Temperature 97.6 F 98.2 F Pulse Rate 66 120 H Respiratory Rate 18 18 Blood Pressure 114/46 L Pulse Oximetry 96 97 Oxygen Delivery 06/01/23 20:00 06/01/23 20:00 06/01/23 21:16 Temperature 97.6 F Pulse Rate 67 Respiratory Rate 18 Blood Pressure 118/40 L Pulse Oximetry 99 99 Oxygen Delivery Room Air Room Air 06/01/23 23:13 06/01/23 20:00 06/01/23 22:00 Temperature 97.6 F Pulse Rate 60 87 64 Respiratory Rate 18 Blood Pressure 122/49 L Pulse Oximetry 97 Oxygen Delivery 06/02/23 00:00 06/02/23 02:00 06/02/23 00:00 Temperature Pulse Rate 67 70 Respiratory Rate Blood Pressure Pulse Oximetry Oxygen Delivery Room Air 06/02/23 04:00 06/02/23 04:00 06/02/23 04:00 Temperature 98.0 F Pulse Rate 52 L 56 L 52 L Respiratory Rate 20 20 Blood Pressure 163/45 H Pulse Oximetry 97 97 Oxygen Delivery Room Air 06/02/23 05:48 06/02/23 08:08 06/02/23 12:10 Temperature 96.0 F L 96.2 F L Pulse Rate 60 70 58 L Respiratory Rate 18 21 H Blood Pressure 131/42 L 114/47 L Pulse Oximetry 100 98 Oxygen Delivery 06/02/23 08:00 06/02/23 10:00 06/02/23 12:
--- NOTE | 2023-06-02 15:06 | PM.CNCAR ---
Assessment and Plan Assessment and plan (1) CHF (congestive heart failure): Qualifiers: Heart failure type: diastolic Heart failure chronicity: acute Qualified Code(s): I50.31 - Acute diastolic (congestive) heart failure Code(s): I50.9 - Heart failure, unspecified Status: Acute Assessment and Plan: Patient presents with progressive shortness of breath with associated moral left anterior chest wall discomfort constant resolving only with improvement in respiratory status after IV diuresis. Elevated BNP and chest x-ray suggestive of pulmonary vascular congestion consistent with diastolic heart failure clinically. Will give IV Lasix 40mg IV cautiously and monitor volume status and response clinically. Monitor BP, electrolytes and renal function closely. Accurate input and output, daily weight. Etiology of decompensated heart failure remains unclear at this time. 2D echocardiogram pending, however, he has a history of preserved LV systolic function EF 50% with normal bioprosthetic AVR function and no other significant valve pathology by echo 08/2022 as an outpatient. He denies prior known documented history of CAD, however, when he had review prior angiography performed preoperatively in 2010 an additional consult cardiology office notes. Office notes reviewed from [facility] December 2022 did not indicate a documented history of CAD. However, given mild flat troponin elevation exclude underlying CAD particularly given significant carotid arterial stenosis and concordance rate with coronary atherosclerosis. (2) Elevated troponin: Code(s): R77.8 - Other specified abnormalities of plasma proteins Status: Acute Assessment and Plan: Mild flat troponin elevation most likely type 2 infarction not secondary to acute coronary syndrome and/or plaque rupture but most likely related to decompensated heart failure although cannot entirely exclude underlying CAD given presence of significant carotid arterial stenosis age in addition risk factors including hyperlipidemia. We discussed consideration for Lexiscan nuclear stress test to assess for myocardial ischemia further evaluation. Continue aspirin 81 mg daily, atorvastatin 20 mg at bedtime for atherosclerotic risk reduction. If patient remains in symptomatic and if stable from a CHF perspective may consider Lexiscan nuclear stress test for further assessment in a.m.. Will review 2D echocardiogram to assess LV size/function of valve pathology wall motion abnormalities with recommendation to follow. If new dysfunction identified with wall motion coronary angiography would be next recommendation, her, as he is followed consistently with his primary court liaison if he remains asymptomatic and stable made for further invasive workup as an outpatient with his court liaison as soon as possible unless patient desires otherwise. His anticoagulation has been held in anticipation for possible percutaneous intervention at the earliest not until Wednesday this could be performed to reduce bleeding risk. Patient verbalized understanding of the recommendations agree with current care. Will monitor clinically the time being and after review of echo recommendation to follow. (3) Chest pain: Qualifiers: Chest pain type: other chest pain Qualified Code(s): R07.89 - Other chest pain Code(s): R07.9 - Chest pain, unspecified Status: Acute Assessment and Plan: Resolved after IV diuresis and resolution of shortness of breath and improvement of CHF. No exacerbation with activity or improved with some nitroglycerin and while underlying obstructive CAD cannot be excluded his symptoms appeared to correspond more directly with his respiratory status and volume overload. (4) Carotid artery stenosis: Qualifiers: Laterality: bilateral Qualified Code(s): I65.23 - Occlusion and stenosis of bilateral carotid arteries Code(s): I65
[2023-06-02 19:41] LABS: CRP < 0.5 mg/dL (<1.0)
[2023-06-02 20:03] LABS: Procalcitonin < 0.0 ng/mL
[2023-06-02] MEDS: ATORVASTATIN 20 MG TABLET PO (22:01)
[2023-06-03] VITALS (17 sets, daily range): BP systolic 99–122; BP diastolic 36–56; PULSE 50–81; RESP 12–28; TEMP 36.3–36.4; O2SAT 95–99
[2023-06-03 04:01] LABS: Basophils Percent Auto 0.3 % (0.2-1.2); Eosinophils Absolute Auto 0.4 K/mm3 (0-0.3); Eosinophils Percent Auto 5.6 % (0-4.4); Hematocrit 39.5 % (42.0-52.0); Immature Granulocyte Absolute 0.02 K/mm3 (0.00-0.031); Immature Granulocyte Percent A 0.3 % (0-0.5); Lymphocytes Absolute Auto 1.58 K/mm3 (0.9-3.2); Lymphocytes Percent Auto 23.9 % (18.3-44.2); Mean Corpuscular HGB Conc 32.9 g/dl (32-36); Mean Corpuscular Hemoglobin 30.8 pg (26-34); Mean Corpuscular Volume 93.6 fl (80-100); Mean Platelet Volume 11.2 fl (7.4-10.4); Monocytes Absolute Auto 0.5 K/mm3 (0.1-0.6); Neutrophils Absolute Auto 4.2 K/mm3 (1.3-6.7); Neutrophils Percent Auto 62.9 % (45.5-73.1); Platelet Count Result 149 k/mm3 (150-375); Red Blood Count 4.22 M/mm3 (4.6-6.20); Red Cell Distribution Width 14.9 % (11.5-14.5); White Blood Count 6.6 K/mm3 (4.5-10.0)
[2023-06-03 04:15] LABS: Alanine Aminotransferase 29 U/L (6-50); Alkaline Phosphatase 61 U/L (38-126); Anion Gap 5 mmol/L (8-16); Aspartate Amino Transferase 29 U/L (17-59); Bilirubin,Total 2.1 mg/dL (0.2-1.3); Blood Urea Nitrogen 17 mg/dL (9-20); Carbon Dioxide 26 mmol/L (22-30); Chloride 106 mmol/L (98-107); Estimated CRCL calculation 62 ml/min; Estimated Glomerular Filt Rate > 60; Glucose 100 mg/dL (65-110); Potassium 4.1 mmol/L (3.4-5.0); Sodium 137 mmol/L (137-145)
[2023-06-03] MEDS: LEVOTHYROXINE SODIUM 50 MCG TABLET PO (05:29)
[2023-06-03] MEDS: NITROGLYCERIN SL 0.4 MG TABLET SUBLINGUAL (06:34)
[2023-06-03] MEDS: ONDANSETRON INJ 4 MG/2 ML VIAL IV PUSH (08:24)
[2023-06-03] MEDS: MORPHINE SULFATE (*CRX) 2 MG/ML INJ 1 MG IV PUSH (08:24)
[2023-06-03] MEDS: GABAPENTIN 300 MG CAPSULE PO ×3 (08:26→17:33)
[2023-06-03] MEDS: CITALOPRAM HYDROBROMIDE 20 MG TABLET PO (08:27)
[2023-06-03] MEDS: FLUTICASONE PROPIONATE 0.05% NA SPR 16 GM BTL (*BKC) 1 SPRAY NASAL ×2 (08:27→17:34)
[2023-06-03] MEDS: ASPIRIN 81 MG CHEWABLE TABLET PO (08:27)
--- NOTE | 2023-06-03 10:02 | PM.IMPN ---
Progress Note: A&P Assessment and Plan (1) Chest pain: Qualifiers: Chest pain type: other chest pain Qualified Code(s): R07.89 - Other chest pain Code(s): R07.9 - Chest pain, unspecified Status: Acute Assessment and Plan: The patient presented to the emergency department for evaluation of atypical chest pain and shortness of breath x4 days. EKG shows a paced rhythm. Troponin peaked at 0.1. He is currently on a study drug and may or may not be taking Eliquis or similar medication thus will continue to hold for potential catheterization. ProBNP 3200. CXR showing mild bibasilar edema vs ILD. Echo with EF 40-45% wiht Grade III diastolic dysfunction, reduced RV systolic function, severe aortic regurg, moderate MR and moderate TR with pulmonary HTN (RVSP 53). Head/neck CTA showing 95% stenosis at the origin of the Rt ICA. Cardiology consulted. Still having chest pain. Continue ASA, Lipitor. Patient will need ischemic evaluation at some point to further address his carotid stenosis and severe AI. Appreciate Cardiology input. Check Trop. Check EKG. (2) Status post aortic valve replacement with bioprosthetic valve: Code(s): Z95.3 - Presence of xenogenic heart valve Status: Acute Assessment and Plan: Echo as above. Old Echo from August 2022 showing normal pressure gradients. EF was 50% with that Echo. Unclear if AI was under appreciated or if he has had a signifincat change in the AI. PCT and CRP negative. BCx collected. Plans for MATEUS to exclude endocarditis. Appreciate cardiolgy input. (3) Elevated troponin: Code(s): R77.8 - Other specified abnormalities of plasma proteins Status: Acute Assessment and Plan: As above. Related to CHF? (4) Heart failure, type unknown: Code(s): I50.9 - Heart failure, unspecified Status: Acute Assessment and Plan: Patient with known hx of CHF. Echo as above. EF lower this admission. [place] he has mild acute/chronic systolic/diastolic CHF exacerbation with elevated BNP and pulmonary edema. lasix IV once given yesterday. Follow (5) Hyperlipidemia: Qualifiers: Hyperlipidemia type: mixed hyperlipidemia Qualified Code(s): E78.2 - Mixed hyperlipidemia Code(s): E78.5 - Hyperlipidemia, unspecified Status: Acute Assessment and Plan: LFTs okay except Bili 2.1. Continue Lipitor (6) Hypothyroidism: Code(s): E03.9 - Hypothyroidism, unspecified Status: Acute Assessment and Plan: TSH normal. Continue Synthroid. Subjective Date/time seen: 06/03/23 10:02 Interval history: 82yo male with CHF, HLD, AVR, CHB s/p PM and hypothyroidism here for chest pain. Slept poorly last night. Had chest pain overnight but did not tell anyone. CP associates with SOB but no nausea, diaphoresis or radiation to the pain. Pain is pleuritic. Had NTG this morning at 0634 and CP resolved. Was nauseous this morning and received Zofran Exam Narrative: AF 97.5 113/44 67 28 95% ra Gen - NARD Chest - few basilar inspiratory crackles, nml RR CV - RRR S1/S2 with 2/6 murmur USB. Tele showing mostly paced rhythm, rare NSVT Abd - Soft, NT/ND, Positive BS Ext - No pedal edema Psych - Nml mood and affect Skin - Warm and dry Objective Data Vital Signs Vital Signs: Vital Signs - 24 hr 06/02/23 12:10 06/02/23 12:00 06/02/23 12:00 Temperature 96.2 F L Pulse Rate 58 L 55 L Respiratory Rate 21 H Blood Pressure 114/47 L Pulse Oximetry 98 Oxygen Delivery Room Air 06/02/23 14:00 06/02/23 16:26 06/02/23 16:00 Temperature 96.1 F L Pulse Rate 58 L 54 L 56 L Respiratory Rate 20 Blood Pressure 110/44 L Pulse Oximetry 99 Oxygen Delivery 06/02/23 18:00 06/02/23 16:00 06/02/23 19:51 Temperature 97.8 F Pulse Rate 73 69 Respiratory Rate 20 Blood Pressure 90/57 L Pulse Oximetry 99 Oxygen Delivery Room Air 06/02/23 20:00 06/02/23
--- NOTE | 2023-06-03 10:21 | ECG_ITS ---
Measurements Intervals [place] Rate: 54 P: -31 AK: 135 QRS: -66 QRSD: 200 T: 115 QT: 499 QTc: 477 Interpretive Statements ATRIAL SENSE- ELECTRONIC VENTRICULAR PACEMAKER NO FURTHER INTERPRETATION IS POSSIBLE ATYPICAL ECG COMPARED TO ECG 06/02/2023 13:31:27 NO SIGNIFICANT CHANGES Electronically Signed On 06-03-2023 14:36:22 CDT by Tor Alba D.O.
[2023-06-03 10:46] LABS: Bilirubin Indirect 2.1 mg/dL (0-1.1)
[2023-06-03 11:01] LABS: Troponin I 0.102 ng/mL (0.000-0.034)
--- NOTE | 2023-06-03 14:26 | PM.PNCARD ---
Progress Note: A&P Assessment and Plan (1) CHF (congestive heart failure): Qualifiers: Heart failure chronicity: acute Heart failure type: diastolic Qualified Code(s): I50.31 - Acute diastolic (congestive) heart failure Code(s): I50.9 - Heart failure, unspecified Status: Acute Assessment and Plan: Patient presents with progressive shortness of breath. Elevated BNP and chest x-ray suggestive of pulmonary vascular congestion consistent with diastolic heart failure clinically. Documented clinical improvement with IV furosemide, however, there is no history of furosemide being ordered given. Will give IV furosemide x1 and observe his response. Repeat echocardiogram yesterday showed severe aortic insufficiency which had not been appreciated on previous echocardiogram from August 2022. He will need further evaluation with a transesophageal echocardiogram, but this can be done as an outpatient. Echocardiogram also showed mildly reduced LV systolic function with an EF of 40-45%. He has grade 3 diastolic dysfunction. Continue losartan. Anticipate discharge home tomorrow if he remains clinically stable. (2) Elevated troponin: Code(s): R77.8 - Other specified abnormalities of plasma proteins Status: Acute Assessment and Plan: Mild flat troponin elevation most likely type 2 infarction not secondary to acute coronary syndrome and/or plaque rupture but most likely related to decompensated heart failure although cannot entirely exclude underlying CAD given presence of significant carotid arterial stenosis age in addition to risk factors including hyperlipidemia. Outpatient coronary angiogram. (3) Chest pain: Qualifiers: Chest pain type: other chest pain Qualified Code(s): R07.89 - Other chest pain Code(s): R07.9 - Chest pain, unspecified Status: Acute Assessment and Plan: Resolved after IV diuresis and resolution of shortness of breath and improvement of CHF. No exacerbation with activity or improved with some nitroglycerin and while underlying obstructive CAD cannot be excluded his symptoms appeared to correspond more directly with his respiratory status and volume overload. (4) Carotid artery stenosis: Qualifiers: Laterality: bilateral Qualified Code(s): I65.23 - Occlusion and stenosis of bilateral carotid arteries Code(s): I65.29 - Occlusion and stenosis of unspecified carotid artery Status: Acute Assessment and Plan: Patient has high-grade right arterial carotid stenosis 95% mild to moderate left stenosis of 60%. Outpatient referral to vascular surgery for his medical collections representative. However, as above, this significantly increases to typical risk for underlying obstructive CAD given high-grade carotid arterial stenosis. Continue aspirin 81 mg daily and atorvastatin 20 mg at bedtime. Goal LDL less than 70. In this regard given his presentation, he would require ischemic evaluation prior to carotid intervention in which invasive angiography may be the most appropriate given his presentation which can be performed by his Boiler Shop Supervisor as an outpt if he remains clinically stable and relatively asymptomatic. Patient currently follows with medical collections representative at [facility]. However, patient and his are requesting to transition care to our office with Dr. Blevins. (5) Chronic a-fib: Code(s): I48.20 - Chronic atrial fibrillation, unspecified Status: Acute Assessment and Plan: Persistent electronic ventricular paced rhythm. No plan for coronary angiography during this admission. Anticoagulation can be resumed. (6) Pacemaker: Code(s): Z95.0 - Presence of cardiac pacemaker Status: Acute Assessment and Plan: Normal device function electronic ventricular paced rhythm. No new issues at this time. 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 Review outside
[2023-06-03] MEDS: FUROSEMIDE INJ 40 MG/4 ML VIAL IV PUSH (17:31)
[2023-06-03] MEDS: ATORVASTATIN 20 MG TABLET PO (21:13)
[2023-06-04] VITALS (11 sets, daily range): BP systolic 96–121; BP diastolic 36–53; PULSE 52–88; RESP 18–20; TEMP 36.2–36.4; O2SAT 96–98
[2023-06-04 04:34] LABS: Anion Gap 5 mmol/L (8-16); Blood Urea Nitrogen 24 mg/dL (9-20); Calcium 8.8 mg/dL (8.4-10.2); Carbon Dioxide 28 mmol/L (22-30); Chloride 101 mmol/L (98-107); Estimated CRCL calculation 46 ml/min; Estimated Glomerular Filt Rate > 60; Glucose 96 mg/dL (65-110); Magnesium 1.9 mg/dL (1.6-2.3); Potassium 4.2 mmol/L (3.4-5.0); Sodium 134 mmol/L (137-145)
[2023-06-04] MEDS: LEVOTHYROXINE SODIUM 50 MCG TABLET PO (06:12)
[2023-06-04] MEDS: ASPIRIN 81 MG CHEWABLE TABLET PO (08:27)
[2023-06-04] MEDS: GABAPENTIN 300 MG CAPSULE PO ×2 (08:27→12:16)
[2023-06-04] MEDS: CITALOPRAM HYDROBROMIDE 20 MG TABLET PO (08:27)
--- NOTE | 2023-06-04 10:22 | PM.PNCARD ---
Progress Note: A&P Assessment and Plan (1) CHF (congestive heart failure): Qualifiers: Heart failure chronicity: acute Heart failure type: diastolic Qualified Code(s): I50.31 - Acute diastolic (congestive) heart failure Code(s): I50.9 - Heart failure, unspecified Status: Acute Assessment and Plan: Patient presents with progressive shortness of breath. Elevated BNP and chest x-ray suggestive of pulmonary vascular congestion consistent with diastolic heart failure clinically. Shortness of breath, orthopnea have completely resolved. Repeat echocardiogram yesterday showed severe aortic insufficiency which had not been appreciated on previous echocardiogram from August 2022. He will need further evaluation with a transesophageal echocardiogram, but this can be done as an outpatient since he is hemodynamically and clinically stable. Blood cultures are pending. Echocardiogram also showed mildly reduced LV systolic function with an EF of 40-45%. He has grade 3 diastolic dysfunction. Should be discharged on 40mg p.o. furosemide. Anticipate discharge home today if final blood culture results remain negative. (2) Elevated troponin: Code(s): R77.8 - Other specified abnormalities of plasma proteins Status: Acute Assessment and Plan: Mild flat troponin elevation most likely type 2 infarction not secondary to acute coronary syndrome and/or plaque rupture but most likely related to decompensated heart failure although cannot entirely exclude underlying CAD given presence of significant carotid arterial stenosis age in addition to risk factors including hyperlipidemia. Outpatient coronary angiogram. (3) Chest pain: Qualifiers: Chest pain type: other chest pain Qualified Code(s): R07.89 - Other chest pain Code(s): R07.9 - Chest pain, unspecified Status: Acute Assessment and Plan: Resolved after IV diuresis and resolution of shortness of breath and improvement of CHF. No exacerbation with activity or improved with some nitroglycerin and while underlying obstructive CAD cannot be excluded his symptoms appeared to correspond more directly with his respiratory status and volume overload. (4) Carotid artery stenosis: Qualifiers: Laterality: bilateral Qualified Code(s): I65.23 - Occlusion and stenosis of bilateral carotid arteries Code(s): I65.29 - Occlusion and stenosis of unspecified carotid artery Status: Acute Assessment and Plan: Patient has high-grade right arterial carotid stenosis 95% mild to moderate left stenosis of 60%. Outpatient referral to vascular surgery for his flight attendant/inflight manager. However, as above, this significantly increases to typical risk for underlying obstructive CAD given high-grade carotid arterial stenosis. Continue aspirin 81 mg daily and atorvastatin 20 mg at bedtime. Goal LDL less than 70. In this regard given his presentation, he would require ischemic evaluation prior to carotid intervention in which invasive angiography may be the most appropriate given his presentation which can be performed by his Batch And Furnace Manager as an outpt if he remains clinically stable and relatively asymptomatic. Patient currently follows with Dr. Mccray. Patient was interested in transferring care to Dr. Blevins, but unable get appointment until the end of June. Therefore, in order to complete above testing in a timely manner, patient will continue care with his established flight attendant/inflight manager, Dr. Mccray. Patient understands that he is to call to make an appointment with Dr. Mahendra GARCIAP. (5) Chronic a-fib: Code(s): I48.20 - Chronic atrial fibrillation, unspecified Status: Acute Assessment and Plan: Persistent electronic ventricular paced rhythm. No plan for coronary angiography during this admission. A/c has been resumed. (6) Pacemaker: Code(s): Z95.0 - Presence of cardiac pacemaker Status: Acute [place]
--- NOTE | 2023-06-04 12:30 | PM.DS ---
DS: Admitting Diagnosis Discharge Date 06/04/23 Admitting Diagnosis Chest pain DS: Discharge Diagnosis Discharge Diagnosis (1) Chest pain: Qualifiers: Chest pain type: other chest pain Qualified Code(s): R07.89 - Other chest pain Code(s): R07.9 - Chest pain, unspecified Status: Acute (2) Status post aortic valve replacement with bioprosthetic valve: Code(s): Z95.3 - Presence of xenogenic heart valve Status: Acute (3) Elevated troponin: Code(s): R77.8 - Other specified abnormalities of plasma proteins Status: Acute (4) Heart failure, type unknown: Code(s): I50.9 - Heart failure, unspecified Status: Acute (5) Hyperlipidemia: Qualifiers: Hyperlipidemia type: mixed hyperlipidemia Qualified Code(s): E78.2 - Mixed hyperlipidemia Code(s): E78.5 - Hyperlipidemia, unspecified Status: Acute (6) Hypothyroidism: Code(s): E03.9 - Hypothyroidism, unspecified Status: Acute DS: Summary Hospital Course Reason for hospitalization: 82yo male with CHF, HLD, AVR, CHB s/p PM and hypothyroidism here for chest pain. Please see H&P for details. Hospital Course: The patient presented to the emergency department for evaluation of chest pain and shortness of breath x4 days. EKG shows a paced rhythm. Troponin peaked at 0.1. He is currently on a study drug and may or may not be taking Eliquis or similar medication. This was on hold for potential catheterization. ProBNP 3200. CXR showing mild bibasilar edema vs ILD. Echo with EF 40-45% with Grade III diastolic dysfunction, reduced RV systolic function, severe aortic regurg, moderate MR and moderate TR with pulmonary HTN (RVSP 53). Head/neck CTA (prior to admission) showing 95% stenosis at the origin of the Rt ICA. Cardiology consulted. We continued ASA, Lipitor. Old Echo from August 2022 showing normal aortic pressure gradients. EF was 50% with that Echo. Unclear if AI was under appreciated or if he has had a significant change in the AI. PCT and CRP negative. BCx collected and are NGTD. Mild flat troponin elevation most likely type 2 infarction not secondary to acute coronary syndrome and/or plaque rupture but most likely related to decompensated heart failure. Patient with known hx of CHF. [place] he has mild acute/chronic systolic/diastolic CHF exacerbation with elevated BNP and pulmonary edema. He received intermittent Lasix with benefit. Suspected his chest pain and shortness of breath related to CHF. Patient overall did well and was able to be discharged home on 06/04/2023. Plan for outpatient ischemic evaluation. Status at Discharge Cognitive/behavioral status at discharge: stable Time Spent with Patient Time attestation: Total time spent providing and/or coordinating discharge services: 35 minutes Time spent: Greater than 30 minutes Exam Narrative: AF 97.1 96/53 67 18 97% ra Gen - NARD Chest - CTA bilaterally, nml RR CV - RRR S1/S2. Tele showing mostly paced rhythm, rare PVCs Abd - Soft, NT/ND, Positive BS Ext - No pedal edema Psych - Nml mood and affect Skin - Warm and dry DS: Data Data Completed and Pending Labs on day of discharge: Labs from last 24 hours 06/04/23 04:02 Sodium 134 L Potassium 4.2 Chloride 101 Carbon Dioxide 28 Anion Gap 5 L BUN 24 H Creatinine 1.10 Estim Creat Clear Calc 46 Estimated GFR > 60 Glucose 96 Calcium 8.8 Magnesium 1.9 Preliminary micro results at discharge 06/02/23 19:21 Blood Culture - Preliminary Blood 06/02/23 19:15 Blood Culture - Preliminary Blood Discharge Plan Discharge Attending physician on discharge: Orlando Quezada Consulting providers: Joe Ervin Discharging Clinician: Orlando Quezada Anticipated Discharge Date/Time: 06/04/23 12:41 Patient Disposition: Home, Self-Care Activity: as tolerated Diet: heart healthy Discharge Instructions:
--- NOTE | 2023-06-09 07:58 | PC.NURSE ---
Blood cx are negative. Dr. Damien boyd.
== END 2023-06-04 13:16 | disposition home or self-care (01) | DRG 281 ==
LOC: ANHED 17:21 → ANHIMU 18:01
PROVIDERS: Emergency Medicine; Physician Assistant; Admitting Provider Chiropractor; Emergency Provider Emergency Medicine; PCP Family Medicine; Visit Provider Internal Medicine
DX: I50.31 Acute diastolic (congestive) heart failure (principal); I21.A1 Myocardial infarction type 2; I48.20 Chronic atrial fibrillation, unspecified; I35.1 Nonrheumatic aortic (valve) insufficiency; I65.23 Occlusion and stenosis of bilateral carotid arteries; E03.9 Hypothyroidism, unspecified; E78.00 Pure hypercholesterolemia, unspecified; E55.9 Vitamin D deficiency, unspecified; M15.9 Polyosteoarthritis, unspecified; F40.240 Claustrophobia; F32.9 Major depressive disorder, single episode, unspecified; G31.84 Mild cognitive impairment of uncertain or unknown etiology; Z96.653 Presence of artificial knee joint, bilateral; Z79.01 Long term (current) use of anticoagulants; Z79.82 Long term (current) use of aspirin; Z95.0 Presence of cardiac pacemaker; Z95.4 Presence of other heart-valve replacement; Z87.891 Personal history of nicotine dependence
CPT/HCPCS: 36415; 36600; 71046; 80048; 80053; 82805; 83735; 83880; 84145; 84443; 84484; 85025; 85027; 85610; 85730; 86140; 87040; 93005; 93306; 93970; 99291; A9270; J1940; J2270; J2405

== ENCOUNTER → 2023-10-15 12:44 | Outpatient (CLI) | payer MEDICARE, OTHER, SELFPAY ==
--- NOTE | ~2023-10-15 | US_ITS ---
Renal-Bladder ultrasound Clinical History: Renal cyst Technique: Real-time sonographic imaging of the kidneys and urinary bladder was performed. Findings: The right kidney measures 11.9 cm in length and the left kidney measures 11.3 cm. There is no hydronephrosis or renal calculus identified. Renal cortical echogenicity is within normal limits. No solid renal mass lesion is identified. Left renal cyst measures 3.8 cm, with internal thin septati ons. The urinary bladder is moderately distended at the time of this exam. No intraluminal echoes are iden tified. No abnormal wall thickening is seen. Impression: 3.8 cm benign appearing left renal cyst. Reviewed, dictated and finalized at location M. YTICS ANALYST Impression: 3.8 cm benign appearing left renal cyst.
== END ==
PROVIDERS: PCP Nurse Practitioner Family; Visit Provider Nurse Practitioner Family
DX: N28.1 Cyst of kidney, acquired (principal)
CPT/HCPCS: 76775

== ENCOUNTER 2025-02-12 12:12 | Outpatient (CLI) | payer MEDICARE, OTHER, SELFPAY ==
--- NOTE | ~2025-02-12 | CT_ITS ---
CT Scan of the Chest without Contrast: Clinical Indication: Pulmonary nodule Technique: Contiguous sections were acquired throughout the chest without intravenous contrast. Dose reduction technique was used on this scan by utilizing automated exposure control and iterative recon struction technique. The dose-length product (DLP) was 105.11 mGy-cm. COMPARISON: 10/09/2015 Findings: There is no evidence of any significant mediastinal, hilar or axillary lymphadenopathy. Status post a ortic valve replacement. Extensive coronary artery calcifications are present. There also extensive a therosclerotic calcifications of the aorta. There is no evidence of pleural or pericardial effusion. 7 mm pleural-based nodule present right lower lobe (axial image 74). There are a few additional small er subcentimeter pleural-based pulmonary nodules in the right middle and lower lobes. Small calcified granulomas are present in the left lower lobe. Images through the upper abdomen reveal stable 1.9 cm right adrenal nodule. Stable peripherally calci fied left renal cyst. Impression: Subcentimeter pulmonary nodules, as above, largest measuring 7 mm. Reviewed, dictated and finalized at location M. Impression: Subcentimeter pulmonary nodules, as above, largest measuring 7 mm.
--- OUTSIDE RECORDS SUMMARY | 2025-02-12 14:36 | XMS_ITS | Clinical Summary ---
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 [place], [place] [id number] 02/20/2025 1:15 PM CDT Appointment [facility] [place] [address] Margaux Mclain MD [id number] [facility] [address] [place] [address] Health Maintenance Due Date Last Done Comments DTaP, Tdap and Td Vaccines ( 1 - Tdap) 1959 Zoster Vaccines (1 of 2) 1990 Annual Medicare Wellness Visit 2005 Pneumococcal Vaccine: 65+ Ye ars (1 of 1 - PCV) 2005 RSV Immunization or 60+ Years (1 - 1-dose 75+ series) 2015 COVID-19 Vaccine ( - 2023-2 5 season) 2024 Influenza Adult (#1) 2024 PHQ-2 (Physician Circle) 11/29/2024 Meningococcal B Vaccine Aged Out No l onger eligible based on patient's age to complete this topic Meningococcal Vaccine Aged Out No darren mala eligible based on patient's age to complete this topic RSV Immunizations Under 20 Months Aged Out No longer eligible based on patient's age to complete this topic Medical Devices Implanted Type Area Residential Roofer Helper Device Identifier Shelf Expiration Date Model / Serial / Lot Ra Lead Implant-02/03/20 Implanted:Qty: 1 on 02/02/2022 Lead Implant Right: Atrium [employer] SOLIA S 53 MODEL [id number] / [id number] / Rv Lead Implant-02/03/20 Implanted:Qty: 1 on 02/02/2022 Lead Implant Right: Ventricle [employer] SOLIA S 60 MODEL [id number] / [id number] / Pacemaker-2021 Implanted:Qty: 1 on 02/02/2022 Pacemaker Chest [employer] EDORA 8 DR-T MODE [id number] / [id number] / Description:MR CONDITIONAL A T 1.5 T OR 3 T, MAX SPATIAL GRADIENT FIELD OF 3000 GAUSS/CM OR LESS, SLEW RATE 200 T/M/S, MAX WHOLE BODY IRIS OF 2 W/KG OR LESS, HEAD IRIS 3.2 W/KG OR LESS Insurance MEDICARE [facility] [place] [id number]
--- OUTSIDE RECORDS SUMMARY | 2025-02-12 14:36 | XMS_ITS | CONTINUITY OF CARE DOCUMENT ---
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 Erika Brown CHEST PAIN-TYPE TO BE DETERMINED active Citlaly Parks CARDIAC MURMUR active Shola Mccray MD FLUID OVERLOAD active Freda Davalos MD CAD completed - Shola Mccray MD Aortic stenosis, severe-s/p porcine AVR active Shola Mccray MD SHORTNESS OF BREATH active Shola Mccray MD Acute peptic ulcer active Shola Mccray MD Dizziness active Shola Mccray MD Palpitations active Shola Mccray MD AV block, complete active Shola Mccray MD Atrial fib, paroxysmal active Shola Mccray MD Peripheral Vascular Disease active Shola العراقي MD Carotid artery stenosis active Chinedu Hay MD HTN active Shola Mccray MD ENCOUNTERS Date Type Provider Location Encounter Diag nosis - In-person encounter Office Visit Shola Mccray MD [facility] - In-person encounter Office Visit Shola Mccray MD [facility] - In-person encounter Office Visit Shola Mccray MD [facility] - In-person encounter Office Visit Shola Mccray MD [facility] Office - In-person encounter Office Visit Chinedu Hay MD [facility] Carotid artery stenosis - In-person encounter Office Visit Shola Mccray MD [facility] Peripheral Vascular Disease - In-person encounter Office Visit Shola Mccray MD [facility] - In-person encounter Office Visit Shola Mccray MD [facility] Atrial fib, paroxysmal - In-person encounter Office Visit Shola Mccray MD [facility] - In-person encounter Office Visit Shola Mccray MD [facility] - In-person encounter Office Visit Shola Mccray MD [facility] AV block, complete - In-person encounter Office Visit Shola Mccray MD [facility] - In-person encounter Office Visit Shola Mccray MD [facility] - In-person encounter Office Visit Shola Mccray MD [facility] - In-person encounter Office Visit Shola Mccray MD [facility] - In-person encounter Office Visit Shola Mccray MD [facility] Office DizzinessPalpitations - In-person encounter Office Visit Shola Mccray MD [facility] Aortic stenosis, severe-s/p porcine AVRAcute peptic ulcer - In-person encounter Office Visit Shola Mccray MD [facility] CAD - In-person encounter Office Visit Shola Mccray MD [facility] CARDIAC MURMURHTNAortic stenosis, severe-s/p porcine AVR - In-person encounter Office Visit Shola Mccray MD [facility] Office - In-person encounter Office Visit Shola Mccray MD [facility] - In-person encounter Office Visit Chinedu Hay MD [facility] - In-person encounter Office Visit Shola Mccray MD [facility] - In-person encounter Office Visit Chinedu Hay MD [facility] - In-person encounter Office Visit Shola Mccray MD [facility] SHORTNESS OF BREATH - In-person encounter Office Visit Shola Mccray MD [facility] - In-person encounter Office Visit Shola Mccray MD [facility] Aortic stenosis, severe-s/p porcine AVR - In-person encounter Office Visit Shola Mccray MD [facility] Aortic stenosis, severe-s/p porcine AVR - In-person encounter Office Visit Freda Davalos MD [facility] - In-person encounter Office Visit Freda Davalos MD [facility] - In-person encounter Office Visit Shola Mccray MD [facility] CARDIAC MURMURFLUID OVERLOADCADHTN VITAL SIGNS Date Observation Value Provider Body Mass Index (Ratio) 27.12 kg/m2 Ryder Mccray MD oxygen saturation, oximetry 95 % Dipti Nielsen pulse rate 64 /min Dipti Nielsen blood pressure, diastolic 67 mm[Hg] Daisy zimmerman [facility] blood pressure, systolic 125 mm[Hg] Janet castañeda [facility] weight E&M 189 [lb_av] Dipti [facility] height E&M 70 [in_i] Dipti [facility] Body Mass Index (Ratio) 27.12 kg/m2 Ryder Mccray MD blood pressure, diastolic 59 mm[Hg] Yris nkLogic blood pressure, systolic 95 mm[Hg] Radha kLogic blood pressure, cuff size regular Ja rret blood pressure, diastolic 59 mm[Hg] Jun rrtiera blood pressure, systolic 95 mm[Hg] Jar ret pulse rate 59 /min Conrado y oxygen saturation, oximetry 96 % Conrado respiratory rate E&M 16 /min Conrado weight E&M 189 [lb_av] Conrado y height E&M 70 [in_i] Conrado [facility] y Body Mass Index (Ratio) 25.54 kg/m2 Ryder Mccray MD blood pressure, cuff size regular [facility] blood pressure, diastolic 66 mm[Hg] [facility] blood pressure, systolic 129 mm[Hg] Giovany [facility] pulse rate 51 /min Fior [place] respiratory rate E&M 15 /min Fior pillai oxygen saturation, oximetry 97 % Fior [place] weight E&M 178 [lb_av] Fior [place] height E&M 70 [in_i] Fior [place] Body Mass Index (Ratio) 25.82 kg/m2 Jaylen Infante blood pressure, cuff size regular amyi Leonieer blood pressure, diastolic 70 mm[Hg] Ke rri Gruenenfelder blood pressure, systolic 120 mm[Hg] Mayi ri Natalieelder oxygen saturation, oximetry 99 % Prabha Natalieelder respiratory rate E&M 12 /min Prabha [facility]hol[facility] pulse rate 67 /min Prabha Nataliee er weight E&M 180 [lb_av] Prabha Manjindernfe height E&M 70 [in_i] Prabha Maegan Body Mass Index (Ratio) 25.25 kg/m2 Chaparro Hay MD blood pressure, cuff size regular Ja blood pressure, diastolic 59 mm[Hg] Jun rret blood pressure, systolic 111 mm[Hg] Jar ret pulse rate 59 /min Conrado weight E&M 176 [lb_av] Conrado respiratory rate E&M 12 /min Conrado oxygen saturation, oximetry 97 % Conrado height E&M 70 [in_i] Conrado y Body Mass Index (Ratio) 25.08 kg/m2 Ryder Mccray MD blood pressure, diastolic 68 mm[Hg] jayme [place] blood pressure, systolic 121 mm[Hg] She david [place] pulse rate 53 /min Carolyn [place] respiratory rate E&M 20 /min Carolyn [place] oxygen saturation, oximetry 99 % Carolyn [place] blood pressure, cuff size regular Sh jayme [place] weight E&M 174.8 [lb_av] Carolyn [place] height E&M 70 [in_i] Conrado y Body Mass Index (Ratio) 25.97 kg/m2 Ryder Mccray MD blood pressure, cuff size regular Ja tiera blood pressure, diastolic 40 mm[Hg] Ja rret blood pressure, systolic 100 mm[Hg] Dwayne mercer pulse rate 59 /min Conrado weight E&M 181 [lb_av] Conrado respiratory rate E&M 12 /min Conrado oxygen saturation, oximetry 96 % Conrado height E&M 70 [in_i] Conrado y Body Mass Index (Ratio) 26.80 kg/m2 Jose Alejandro [place] weight in kilograms E&M 84.73 kg Jose Alejandro [place] weight E&M 186.8 [lb_av] Carolyn [place] blood pressure, cuff size regular jayme [place] blood pressure, diastolic 60 mm[Hg] jayme [place] blood pressure, systolic 118 mm[Hg] She david [place] respiratory rate E&M 18 /min Carolyn [place] pulse rate 58 /min Carolyn [place] oxygen saturation, oximetry 98 % Carolyn [place] height E&M 70 [in_i] Carolyn [place] height in centimeters E&M 177.80 cm jayme [place] Body Mass Index (Ratio) 26.54 kg/m2 Ryder Mccray MD blood pressure, diastolic 65 mm[Hg] Mi stanislav Call blood pressure, systolic 117 mm[Hg] Robin indu Call oxygen saturation, oximetry 98 % Rosalind Call pulse rate 68 /min Rosalind mojica weight E&M 185 [lb_av] Rosalind Brittney mojica respiratory rate E&M 16 /min Katie bangura Jakub blood pressure, cuff size large Nan color[place] Jakub height E&M 70 [in_i] Rosalind Brittney mojica Body Mass Index (Ratio) 27.40 kg/m2 Ryder Mccray MD respiratory rate E&M 16 /min Keron ruffin Rodrigo oxygen saturation, oximetry 97 % Trevor Wallace pulse rate 79 /min Trevor michelle blood pressure, diastolic 55 mm[Hg] Constance Wallace blood pressure, systolic 107 mm[Hg] Lolis Wallace weight E&M 191 [lb_av] Trevor michelle blood pressure, cuff size regular Constance Wallace height E&M 70 [in_i] Trevor michelle Body Mass Index (Ratio) 27.55 kg/m2 Ryder Mccray MD blood pressure, diastolic 73 mm[Hg] Ca therine Jose Alfredo blood pressure, systolic 121 mm[Hg] Cat herine Jose Alfredo oxygen saturation, oximetry 97 % Joelle Jose Alfredo respiratory rate E&M 14 /min Catheri ne Jose Alfredo pulse rate 64 /min Joelle [place] weight E&M 192 [lb_av] Joelle [place] blood pressure, cuff size regular Ca therine Jose Alfredo height E&M 70 [in_i] Joelle Jose Alfredo Body Mass Index (Ratio) 26.83 kg/m2 Ryder Mccray MD blood pressure, diastolic 73 mm[Hg] Yris nkLogsaman blood pressure, systolic 139 mm[Hg] Radha Zelaya blood pressure, cuff size regular Constance Wallace blood pressure, diastolic 73 mm[Hg] Constance Wallace blood pressure, systolic 139 mm[Hg] Lolis Wallace oxygen saturation, oximetry 98 % Trevor Wallace respiratory rate E&M 14 /min Keron Wallace pulse rate 53 /min Trevor michelle weight E&M 187 [lb_av] Trevor michelle height E&M 70 [in_i] Trevor michelle Body Mass Index (Ratio) 26.83 kg/m2 Ryder Mccray MD blood pressure, cuff size regular Pascual rri Flako blood pressure, diastolic 68 mm[Hg] Ke rri Flako blood pressure, systolic 108 mm[Hg] Mayi maribel Arriola oxygen saturation, oximetry 98 % Prabha Arriola respiratory rate E&M 16 /min Prabha justin pulse rate 66 /min Prabha Issa [facility] weight E&M 187 [lb_av] Prabha Issa [facility] height E&M 70 [in_i] Prbaha Issa [facility] Body Mass Index (Ratio) 27.46 kg/m2 Ryder Mccray MD blood pressure, diastolic 66 mm[Hg] Maulik Crawford blood pressure, systolic 123 mm[Hg] Mariella Crawford oxygen saturation, oximetry 98 % Shakira Crawford respiratory rate E&M 18 /min Arnaldo Crawford pulse rate 60 /min Shakira koenig weight E&M 191.4 [lb_av] Shakira quiñones height E&M 70 [in_i] Shakira Torre nson Body Mass Index (Ratio) 26.40 kg/m2 Ryder Mccray MD blood pressure, cuff size large Ke rri Nataliejesse blood pressure, diastolic 70 mm[Hg] Ke rri Natalieeldterrell blood pressure, systolic 126 mm[Hg] Mayi lópez Flako respiratory rate E&M 98 /min Prabha G addisonenenfelder pulse rate 61 /min Prabha Issa lder weight E&M 184 [lb_av] Prabha Albertogretchenjigar lder height E&M 70 [in_i] Prabha Albertogretchenjigar er Body Mass Index (Ratio) 25.68 kg/m2 Ryder Mccray MD respiratory rate #2 16 Qi leyva pulse rate #2 64 Qi Madrid blood pressure, rucker tolic, second observation 64 mm[Hg] Qi [place] blood pressure, syst olic, second observation 110 mm[Hg] Qi [place] blood pressure, cuff size large Daisy Kumari blood pressure, diastolic 64 mm[Hg] Daisy Kumari blood pressure, systolic 110 mm[Hg] Yaya [place] oxygen saturation, oximetry 98 % Qi [place] respiratory rate E&M 16 /min Qi levy pulse rate 64 /min Qi [place] weight E&M 179 [lb_av] Qi [place] height E&M 70 [in_i] Qi Madrid Body Mass Index (Ratio) 24.71 kg/m2 Ryder Mccray MD blood pressure, diastolic 69 mm[Hg] Maulik Crawford blood pressure, systolic 138 mm[Hg] Mariella Crawford oxygen saturation, oximetry 97 % Shakira Crawford respiratory rate E&M 18 /min Arnaldo Crawford pulse rate 57 /min Shakira koenig weight E&M 172.2 [lb_av] Shakira quiñones height E&M 70 [in_i] Shakira koenig blood pressure, diastolic 70 mm[Hg] Pascual reyesi Flako blood pressure, systolic 120 mm[Hg] Mayi ri Flako pulse rate 55 /min Prabha Nataliee lder oxygen saturation, oximetry 98 % Prabha Flako respiratory rate E&M 16 /min Prabha G nhan Body Mass Index (Ratio) 27.40 kg/m2 Booker levar Flako weight E&M 191 [lb_av] Prabha Nataliee lder blood pressure, diastolic 71 mm[Hg] Maulik Crawford blood pressure, systolic 120 mm[Hg] Mariella Crawford Body Mass Index (Ratio) 28.61 kg/m2 Janet Crawford pulse rate 68 /min Shakira koenig oxygen saturation, oximetry 93 % Shakira Crawford respiratory rate E&M 18 /min Arnaldo Crawford weight E&M 199.4 [lb_av] Shakira quiñones Body Mass Index (Ratio) 29.44 kg/m2 Danyel'matt muñoz Ray blood pressure, diastolic 70 mm[Hg] Je 'newillem Ray blood pressure, systolic 118 mm[Hg] Je marilin Ray pulse rate 69 /min Jemarilin Ray oxygen saturation, oximetry 98 % Jemarilin Ray respiratory rate E&M 19 /min Je'newillem Ray weight E&M 205.2 [lb_av] Janet Bell Body Mass Index (Ratio) 30.10 kg/m2 Gonsaloangelika fonsecan Lamb blood pressure, diastolic 84 mm[Hg] Jose shannan Lamb blood pressure, systolic 147 mm[Hg] Gonsalo haines Lamb pulse rate 60 /min [facility] oxygen saturation, oximetry 98 % [facility] respiratory rate E&M 16 /min [facility] weight E&M 209 [lb_av] [facility] Body Mass Index (Ratio) 29.95 kg/m2 Gonsaloangelika johnson Lamb blood pressure, diastolic 75 mm[Hg] Pereiramarianmatt Lamb blood pressure, systolic 130 mm[Hg] Gonsalo haines Lamb pulse rate 61 /min Gonsalotrevin Lamb oxygen saturation, oximetry 99 % Gonsalotrevin Lamb respiratory rate E&M 16 /min Gonsalotrevin Lamb weight E&M 208 [lb_av] Gonsalotrevin Lamb Body Mass Index (Ratio) 29.29 kg/m2 Betty French blood pressure, diastolic 80 mm[Hg] Jhon Can blood pressure, systolic 128 mm[Hg] Manoj ricks pulse rate 60 /min Heidi oxygen saturation, oximetry 98 % Heidi St respiratory rate E&M 16 /min Heidi banda weight E&M 203.4 [lb_av] Heidi Stber height E&M 70 [in_i] Heidi Stueber Body Mass Index (Ratio) 29.64 kg/m2 Booker i Flako blood pressure, diastolic 68 mm[Hg] Ke rri Flako blood pressure, systolic 139 mm[Hg] Ker ri Flako pulse rate 54 /min Prabha Maegan lder oxygen saturation, oximetry 98 % Prabha Flako respiratory rate E&M 17 /min Prabha Tripp nhan weight E&M 200 [lb_av] Prabha Maegan lder blood pressure, diastolic 64 mm[Hg] Earle franklyn Hanks blood pressure, systolic 110 mm[Hg] Giselle Hanks pulse rate 66 /min Lauryn Hanks oxygen saturation, oximetry 95 % Lauryn Hanks respiratory rate E&M 14 /min Lauryn flores weight E&M 203 [lb_av] Lauryn Hanks blood pressure, diastolic 82 mm[Hg] Jun Ospina RN blood pressure, systolic 140 mm[Hg] Dave Ospina RN pulse rate 61 /min Daev Ospina RN oxygen saturation, oximetry 98 % Dave Ospina RN respiratory rate E&M 16 /min Dave jacobs RN weight E&M 208 [lb_av] Dave Ospina RN blood pressure, diastolic, left arm 68 mm [Hg] Susan Kerr blood pressure, systolic, left arm 111 mm [Hg] Susan Kerr blood pressure, diastolic, right arm 75 m m[Hg] Susan Kerr blood pressure, systolic, right arm 108 m m[Hg] Susan Kerr blood pressure, diastolic 68 mm[Hg] Jhon Kerr blood pressure, systolic 111 mm[Hg] Jose Kerr pulse rate 80 /min Susan Kerr oxygen saturation, oximetry 96 % Susan Kerr respiratory rate E&M 16 /min Susan Kerr weight E&M 203 [lb_av] Susan Kerr blood pressure, diastolic, left arm 63 mm [Hg] Jaenmarie Mai blood pressure, systolic, left arm 124 mm [Hg] [facility] blood pressure, diastolic, right arm 68 m m[Hg] [facility] blood pressure, systolic, right arm 118 m m[Hg] [facility], [facility] 68 mm[Hg] Neelima seph [place]aco blood pressure, systolic 118 mm[Hg] Benja eph [facility] pulse rate 56 /min [facility] oxygen saturation, oximetry 96 % [facility] respiratory rate E&M 16 /min [facility] weight E&M 206 [lb_av] [facility] respiratory rate E&M 16 /min Freda Davalos MD weight E&M 203 [lb_av] Freda carlson MD height E&M 69 [in_i] Freda carlson MD blood pressure, diastolic 79 mm[Hg] Jun Ospina RN blood pressure, systolic 145 mm[Hg] Dave Ospina RN pulse rate 53 /min Dave Ospina RN oxygen saturation, oximetry 99 % Dave Ospina RN respiratory rate E&M 18 /min Dave jacobs RN weight E&M 203 [lb_av] Dave Ospina RN ALLERGIES Allergy Name Onset Date Reaction Criticality Status QUININE SULFATE DIHYDRATE Low Critic ality active RESULTS Date Observation Value Provider Reference Range Interpretation Location prothrombin time (patient) 12.0 s [facility] 9.1-12.0 international normalized ratio (INR) 1.1 [facility] 0.9-1.2 lipoprotein, beta, serum, point, quantitative, calculated 35 mg/dL [facility] 0-99 HDL cholesterol, serum 49 mg/dL [facility] >39 triglyceride, serum, random 39 mg/dL [facility] 0-149 cholesterol, serum 95 mg/dL [facility] 100-199 Low calcium, serum 9.4 mg/dL [facility] 8.6-10.2 carbon dioxide, venous blood 25 mmol/L [facility] 20-29 chloride, serum 103 mmol/L [facility] 96-106 potassium, serum 4.4 mmol/L [facility] 3.5-5.2 sodium, serum 140 mmol/L [facility] [phone]/08 /26 urea nitrogen/creatinin e ratio, serum 14 [facility] 10-24 creatinine, serum 0.90 mg/dL [facility] 0.76-1.27 urea nitrogen, blood 13 mg/dL [facility] 8-27 blood glucose, random 104 mg/dL [facility] 70-99 High basophil count, absolute 0.0 x10E3/uL [facility] 0.0-0.2 Eosinophil Absolute Count 0.3 X10E3/UL [facility] 0.0-0.4 monocyte count, blood, automated 0.5 X10E3/UL [facility] 0.1-0.9 lymphocyte count, blood, automated 1.0 X10E3/UL [facility] 0.7-3.1 Absolute Neutrophils 2.7 X10E3/UL [facility] 1.4-7.0 basophils as percent of blood leukocytes 1 % [facility] Not Estab. eosinophils as percent of blood leukocytes 7 % [facility] Not Estab. monocytes as percent of blood leukocytes 10 % [facility] Not Estab. lymphocytes as percent of blood leukocytes 21 % [facility] Not Estab. neutrophils as percent of blood leukocytes 61 % [facility] Not Estab. platelet count 150 X10E3/UL [facility] 599-718 3132/08 /25 red blood cell distribution width 13.7 % [facility] 11.6-15.4 mean corpuscular hemoglobin concentration, RBC 31.7 G/DL [facility] 31.5-35.7 mean corpuscular hemoglobin, RBC 28.8 pg [facility] 26.6-33.0 mean corpuscular volume, RBC 91 fL [facility] 79-97 hematocrit, blood 36.0 % [facility] 37.5-51.0 Low hemoglobin, blood 11.4 g/dL [facility] 13.0-17.7 Low erythrocyte (RBC) count 3.96 X10E6/UL [facility] 4.14-5.80 Low leukocyte count, blood 4.5 X10E3/UL [facility] 3.4-10.8 international normalized ratio (INR) 2.22 [facility] 0.90-1.20 High , [place] [address] prothrombin time (patient) 25.3 s [facility] 10.3-13.7 High C, [place] [address] activated partial thromboplastin time (aPTT) 62.0 s LinkLog[facility] Units converted. See lab report for original value. High C, [place] [address] Absolute Basophils 0.0 K/CUMM [facility] 0.0-0.1 Normal C, [place] [address] Absolute Monocytes 0.4 K/CUMM [facility] 0.2-0.8 Normal , [place] [address] Absolute Lymphocytes 1.1 K/CUMM [facility] 0.8-3.3 Normal , [place] [address] Absolute Neutrophils 2.7 K/CUMM [facility] 1.7-6.5 Normal C, [place] [address] nucleated red blood cells as percent of blood leukocytes 0.00 K/CUMM [facility] 0.00-0.01 Normal red blood cell distribution width, size density 50.1 fL [facility] 35.7-48.1 High mean corpuscular hemoglobin concentration, RBC 32.6 G/DL [facility] 32.3-35.7 Normal mean corpuscular hemoglobin, RBC 29.8 pg [facility] 27.1-33.3 Normal mean corpuscular volume, RBC 91.5 fL [facility] 81.3-96.4 Normal erythrocyte count, whole blood 3.99 M/CUMM [facility] 4.30-5.80 Low mean platelet volume 11.6 fL [facility] 9.1-12.3 Normal platelet count 170 10*3/uL [facility] 150-400 Normal hematocrit, blood 36.5 % [facility] 38.9-50.3 Low hemoglobin, blood 11.9 g/dL [facility] 13.0-17.5 Low NT-pro BNP 2687 [facility] <=450 [place] [address] ferritin, serum 215 ng/mL [facility] 30-400 iron saturation percent, serum 18 % [facility] 15-55 iron, serum 61 ug/dL [facility] 38-169 iron binding capacity, unsaturated 280 ug/dL [facility] 885-593 4643/06 /21 iron binding capacity, total 341 ug/dL [facility] 304-495 4368/06 /21 lipoprotein, beta, serum, point, quantitative, calculated 108 mg/dL [facility] 0-99 High very low density lipoproteins 25 mg/dL [facility] 5-40 HDL cholesterol, serum 53 mg/dL [facility] >39 triglyceride, serum, random 127 mg/dL [facility] 0-149 cholesterol, serum 186 mg/dL [facility] 102-088 5729/06 /21 basophil count, absolute 0.0 x10E3/uL [facility] 0.0-0.2 Eosinophil Absolute Count 0.3 X10E3/UL [facility] 0.0-0.4 monocyte count, blood, automated 0.6 X10E3/UL [facility] 0.1-0.9 lymphocyte count, blood, automated 1.8 X10E3/UL [facility] 0.7-3.1 Absolute Neutrophils 3.1 X10E3/UL [facility] 1.4-7.0 basophils as percent of blood leukocytes 1 % [facility] Not Estab. eosinophils as percent of blood leukocytes 5 % [facility] Not Estab. monocytes as percent of blood leukocytes 11 % [facility] Not Estab. lymphocytes as percent of blood leukocytes 30 % [facility] Not Estab. neutrophils as percent of blood leukocytes 53 % [facility] Not Estab. platelet count 196 X10E3/UL [facility] 100-091 6195/06 /21 red blood cell distribution width 14.9 % [facility] 12.3-15.4 mean corpuscular hemoglobin concentration, RBC 34.5 G/DL [facility] 31.5-35.7 mean corpuscular hemoglobin, RBC 32.0 pg [facility] 26.6-33.0 mean corpuscular volume, RBC 93 fL [facility] 79-97 hematocrit, blood 45.2 % [facility] 37.5-51.0 hemoglobin, blood 15.6 g/dL [facility] 13.0-17.7 erythrocyte (RBC) count 4.88 X10E6/UL [facility] 4.14-5.80 leukocyte count, blood 5.9 X10E3/UL [facility] 3.4-10.8 alanine aminotransferase (SGPT), serum 19 1/L [facility] 0-44 aspartate aminotransferase (SGOT), serum 22 1/L [facility] 0-40 alkaline phosphatase, serum 65 1/L [facility] 39-117 bilirubin, serum, total 0.6 mg/dL [facility] 0.0-1.2 albumin/globulin ratio, [facility].8 [facility] 1[facility]2.2 globulin, serum 2.7 [facility] 1.5-4.5 albumin, serum 4.8 g/dL [facility] 3.5-4.8 protein, total, serum 7.5 g/dL [facility] 6.0-8.5 calcium, serum 9.9 mg/dL [facility] 8.[facility]-10.2 carbon dioxide, venous blood 25 mmol/L [facility] 20-29 chloride, serum 104 mmol/L [facility] 96[facility]106 potassium, serum 4.3 mmol/L [facility] 3.5-5.2 sodium, serum 142 mmol/L [facility] [phone]/06 /21 urea nitrogen/creatinin e ratio, serum 13 [facility] 10-24 eGFR if 105 mL/min/{1.73 _m2} [facility] >59 eGFR if not 91 mL/min/{1.73 _m2} [facility] >59 creatinine, serum 0.70 mg/dL [facility] 0.76-1.27 Low urea nitrogen, blood 9 mg/[facility] 8-27 blood glucose, random 91 mg/dL [facility] 65-99 alanine aminotransferase (SGPT), serum 35 1/L [facility] aspartate aminotransferase (SGOT), serum 38 1/L [facility] creatinine, serum 0.81 mg/dL [facility] potassium, serum 3.9 mmol/L [facility] sodium, serum 138 mmol/L [facility] international normalized ratio (INR) 1.2 Gwen Lamb prothrombin time (patient) 11.6 s [facility] basophils as percent of blood leukocytes 0.6 % [facility] Normal eosinophils as percent of blood leukocytes 7.8 % [facility] Normal monocyte count, blood 12.7 % [facility] Normal lymphocyte count, blood 31.9 % [facility] Normal neutrophils as percent of blood leukocytes 47.0 % [facility] Normal basophils, absolute, manual 23 cells/mcL [facility] (0-200) Normal eosinophils, absolute, manual 296 cells/mcL [facility] (15-500) Normal monocytes, absolute, manual 483 cells/mcL [facility] (200-950) Normal lymphocytes, absolute 1212 CELLS/UL [facility] (850-3900) Normal Absolute Neutrophil count 1786 cells/mcL [facility] (1393-0742) Normal platelet count 150 THOUSAND/UL [facility] (140-400) Normal red blood cell distribution width 14.5 % [facility] (11.0-15.0) Normal mean corpuscular hemoglobin concentration, RBC 34.2 G/DL [facility] (32.0-36.0) Normal mean corpuscular hemoglobin, RBC 32.6 pg [facility] (27.0-33.0) Normal mean corpuscular volume, RBC 95.4 fL [facility] (80.0-100.0 ) Normal hematocrit, blood 42.6 % [facility] (38.5-50.0) Normal hemoglobin electrophoresis, blood 14.6 [facility] (13.2-17.1) Normal erythrocyte (RBC) count 4.46 MILLION/UL [facility] (4.20-5.80) Normal leukocyte (white blood cells) count, blood 3.8 THOUSAND/UL [facility] (3.8-10.8) Normal alanine aminotransferase (SGPT), serum 28 1/L [facility] (9-60) Normal aspartate aminotransferase (SGOT), serum 28 1/L [facility] (10-35) Normal alkaline phosphatase, serum 53 1/L [facility] (40-115) Normal bilirubin, serum, total 1.0 mg/dL [facility] (0.2-1.2) Normal albumin/globulin ratio, serum 1.8 (calc) [facility] (1.0-2.1) Normal globulins, serum, total 2.3 G/DL (CALC) [facility] (2.1-3.7) Normal albumin, serum 4.2 g/dL [facility] (3.6-5.1) Normal protein, total, serum 6.5 g/dL [facility] (6.2-8.3) Normal calcium, serum 9.0 mg/dL [facility] (8.6-10.2) Normal carbon dioxide, venous blood 21 mmol/L [facility] (21-33) Normal chloride, serum 105 mmol/L [facility] (98-110) Normal potassium, serum 4.0 mmol/L [facility] (3.5-5.3) Normal sodium, serum 140 mmol/L [facility] (135-146) Normal urea nitrogen/creatinin e ratio, serum NOT APPLICABLE (calc) [facility] (6-22) Estimated Glomerular Filtration Rate (calc) >60 mL/min/1.73m 2 [facility] (> OR = 60) Normal creatinine, serum 0.69 mg/dL [facility] (0.67-1.54) Normal urea nitrogen, blood 18 mg/dL [facility] (7-25) Normal blood glucose, random 117 mg/dL [facility] (65-99) High cholesterol/HDL ratio, serum, percent 3.9 (calc) [facility] (< OR = 5.0) Normal LDL cholesterol, serum 125 MG/DL (CALC) [facility] (<130) Normal triglyceride, serum, fasting 77 mg/dL [facility] (<150) Normal HDL cholesterol, serum 48 mg/dL [facility] (> OR = 40) Normal cholesterol, serum 188 mg/dL [facility] (125-200) Normal HISTORY OF MEDICATION USE Medication Status Instructions Dates Provider Indications Com ments memantine 10 mg tablet active Take 1 tablet by mouth once a day [facility] Eliquis 5 mg tablet active Take 1 tablet by mouth twice a day Charla Koroma Atrial fib, paroxysmal [facility] asundexian/placeb o or eliquis/placebo completed - Lizz Booker carvedilol 3.125 mg tablet completed - [facility] furosemide 40 mg tablet completed - [facility] Calcium 600 + D(3) 600 mg-5 mcg (200 unit) capsule active Take 1 once a day Trevor Wallace citalopram 10 mg tablet active 1 tablet by mouth once a day Shakira Crawford donepezil 5 mg tablet active 1 tablet by mouth once a day Shakira Crawford levothyroxine 50 mcg tablet active 1 tablet by mouth once a day Shakira Crawford ATORVASTATIN CALCIUM 10 MG ORAL TABLET completed one tab daily at bedtime - Sury Del Real LANSOPRAZOLE 30 MG ORAL CAPSULE DELAYED RELEASE completed 1 daily - Shakira Crawford RISPERIDONE 0.25 MG ORAL TABLET DISINTEGRATING completed once daily - Prabha Arriola PROMETHAZINE-CODE INE 6.25-10 MG/5ML ORAL SYRUP completed 5ml po q 4-6 hours prn cough - Shakira Crawford NORCO TABLET completed TAKE NEEDED - Shakira Crawford ALPRAZOLAM 0.25 MG ORAL TABLET DISINTEGRATING completed 1 tab every 8 hours as needed for anxiety. - Janet Bell VENLAFAXINE HCL ER 225 MG ORAL TABLET EXTENDED RELEASE 24 HOUR completed once daily - Prabha Arriola OMEPRAZOLE 20 MG ORAL CAPSULE DELAYED RELEASE completed 1 tab po day - Shakira Crawford SHORTNESS OF BREATH TH VITAMIN D3 CAPSULE completed 1000iu once a day - Heidi French SIMVASTATIN 40 MG ORAL TABLET completed ONE TAB. DAILY - Dave Ospina RN NITROLINGUAL 0.4 MG/SPRAY TRANSLINGUAL SOLUTION completed ONE SPRAY PRN 4.9GM. BOTTLE - Dave Ospina RN ATENOLOL 25 MG ORAL TABLET completed ONE TAB. DAILY at night - Dave Ospina RN CELEXA 20 MG ORAL TABLET completed daily - Janet Bell SOCIAL HISTORY Date Observation Value Provider drug use no Shola Mojica alcohol use no Shola Mojica passive cigarette sm nithin exposure yes Shola Mccray MD smoking status Former smoker Shola gutierrez MD drug use no Shola Mojica alcohol use no Shola Mojica passive cigarette sm nithin exposure yes Shola Mccray MD smoking status Former smoker Shola gutierrez MD drug use no Fior Mitchell alcohol use no Fior Mitchell passive cigarette sm nithin exposure yes Fior Mitchell smoking/tobacco cessation, patient education and counseling contraindicated Fior Mitchell smoking status Former smoker Fior Mitchell social history revie wed E&M reviewed - no changes required Shola Mccray MD social history E&M Marital Statu s: Radha sahni with family/friends E thnicity: Smoking History: Heber bustamante is a former smoker. Chinedu Hay MD social history revie wed E&M reviewed - no changes required Chinedu Hay MD smoking status Former smoker Chinedu Hay MD social history E&M Marital Statu s: L bora with family/friends E thnicity: Smoking History: P robby has never smoked. Shola Mccray MD social history revie wed E&M reviewed - no changes required Shola Mccray MD smoking status Never smoker Carolyn [place] drug use no Justyna Ventimig mary kate [facility] alcohol use no Justyna Ventimig mary kate [facility] smoking status Never smoker Justyna Ventim iglia [facility] social history E&M Marital Statu s: L bora with family/friends E thnicity: Smoking History: P robby has never smoked. Shola Mccray MD social history revie wed E&M reviewed - no changes required Shola Mccray MD smoking status Never smoker Carolyn [place] social history E&M Marital Statu s: L bora with family/friends E thnicity: Smoking History: P robyb is a former smoker. Shola Mccray MD social history revie wed E&M reviewed - no changes required Shola Mccray MD seatbelt usage 100 % Rosalind Dean Exercise counseling yes Rosalind Call physical exercise, frequency, days per week yes Rosalind Call caffeine use, averag e drinks per day no Rosalind Call passive cigarette sm nithin exposure yes Rosalind Call smoking status Former smoker Rosalind connolly smoking status Former smoker Shola gutierrez MD social history revie wed E&M reviewed - no changes required Shola Mccray MD social history E&M Marital Statu s: L bora with family/friends E thnicity: Smoking History: Heber bustamante is a former smoker. Shola Mccray MD social history revie wed E&M reviewed - no changes required Shola Mccray MD seatbelt usage 100 % Joelle Sara s physical exercise, frequency, days per week yes Joelle [place] caffeine use, averag e drinks per day no Joelle [place] passive cigarette sm nithin exposure yes Joelle Jose Alfredo smoking status Former smoker Joelle Ot is social history revie wed E&M reviewed - no changes required Shola Mccray MD Exercise counseling yes Lolisesperanzaterrell dashawn Wallace social history E&M Marital Statu s: L bora with family/friends E thnicity: Smoking History: P atient is a former smoker. Shola Mccray MD social history revie wed E&M reviewed - no changes required Shola Mccray MD seatbelt usage 100 % Prabha tovar physical exercise, frequency, days per week yes Prabha Arriola caffeine use, averag e drinks per day no Prabha Arriola passive cigarette sm nithin exposure yes Prabha Arriola smoking status Former smoker Prabha Dominguezgretchen johnson social history E&M Marital Statu s: L bora with family/friends E thnicity: Smoking History: P atient is a former smoker. Shola Mccray MD social history revie wed E&M reviewed - no changes required Shola Mccray MD seatbelt usage 100 % Shakira Dalal physical exercise, frequency, days per week yes Shakira Crawford caffeine use, averag e drinks per day no Shakira Crawford passive cigarette sm nithin exposure yes Shakira Crawford smoking status Former smoker Shakiramatt Robles social history E&M Marital Statu s: L bora with family/friends E thnicity: Smoking History: P atient is a former smoker. Shola Mccray MD social history revie wed E&M reviewed - no changes required Shola Mccray MD seatbelt usage 100 % Prabhamaribel Solorioanimatt tovar physical exercise, frequency, days per week yes Prabha Dominguezgretchenaimeejesse alcohol counseling no Prabha Sandy eileen In the past 3 months , have you been waking up wanting to use drugs? (CAGE substance use question #4) N Prabha Dominguezsherry In the past 3 months , have you felt guilty or bad about using drugs? (CAGE substance use question #3) N Prabha Dominguezsherry In the past 3 months , has anyone annoyed you by telling you to cut down or stop using drugs? (CAGE substance use question #2) N Prabha Dominguezsherry In the past 3 months , have you felt you should cut down or stop using drugs?(CAGE substance use question #1) N Prabha Flako alcohol use, average drinks per day 1-3 drinks per day Prabha Dunbarelizabeth alcohol use no Prabha Issa marialuisa caffeine use, averag e drinks per day no Prabha Estradajesse drug use none Prabha Dominguezkarrieaniaimeewillem [facility] passive cigarette sm nithin exposure yes Prabha Dominguezsherry smoking status Former smoker Prabha Dunbar elizabeth social history revie wed E&M reviewed - no changes required Shola Mccray MD handedness R Handed Shola Mojica social history E&M Marital Statu s: L bora with family/friends E thnicity: Smoking History: Heber bustamante is a former smoker. Shola Mccray MD social history revie wed E&M reviewed - no changes required Shola Mccray MD seatbelt usage 100 % Shakira Dalal physical exercise, frequency, days per week yes Shakira Crawford alcohol counseling no Shakira Crawford In the past 3 months , have you been waking up wanting to use drugs? (CAGE substance use question #4) N Shakira Crawford In the past 3 months , have you felt guilty or bad about using drugs? (CAGE substance use question #3) N Shakira Crawford In the past 3 months , has anyone annoyed you by telling you to cut down or stop using drugs? (CAGE substance use question #2) N Shakira Crawford In the past 3 months , have you felt you should cut down or stop using drugs?(CAGE substance use question #1) N Shakira Crawford alcohol use, average drinks per day 1-3 drinks per day Shakira Crawford alcohol use no Shakira Torre xeniaatul caffeine use, averag e drinks per day no Shakira Crawford drug use none Shakira Torre xeniaatul passive cigarette sm nithin exposure yes Shakira Crawford smoking status Former smoker Shakira leanne social history E&M Marital Statu s: Radha bora with family/friends E thnicity: Smoking History: Heber bustamante is a former smoker. Shola Mccray MD social history revie [facility] E&M reviewed - no changes required Shola Mccray MD seatbelt usage 100 % Prabha tovar physical exercise, frequency, days per week yes Prabha Arriola alcohol counseling no Prabha arellano In the past 3 months , have you been waking up wanting to use drugs? (CAGE substance use question #4) N Prabha Arriola In the past 3 months , have you felt guilty or bad about using drugs? (CAGE substance use question #3) N Prabha Arriola In the past 3 months , has anyone annoyed you by telling you to cut down or stop using drugs? (CAGE substance use question #2) N Prabha Dominguezsherry In the past 3 months , have you felt you should cut down or stop using drugs?(CAGE substance use question #1) N Prabha Flako alcohol use, average drinks per day 1-3 drinks per day Prabha Dominguezsherry alcohol use no Prabha Issa yamila caffeine use, averag e drinks per day no Prabha Dominguezsherry drug use none Prabha Dominguezkarrieaniaimeewillem yamila passive cigarette sm nithin exposure yes Prabha Dominguezsherry smoking status Former smoker Prabha Solorioani johnson smoking/tobacco cessation, patient education and counseling No Shola Mccray MD alcohol use no Shola Mojica social history revie wed E&M reviewed - no changes required Shola Mccray MD seatbelt usage 100 % Shakira Dalal physical exercise, frequency, days per week yes Shakira Crawford alcohol counseling no Shakira Crawford In the past 3 months , have you been waking up wanting to use drugs? (CAGE substance use question #4) Matt Crawford In the past 3 months , have you felt guilty or bad about using drugs? (CAGE substance use question #3) Matt Crawford In the past 3 months , has anyone annoyed you by telling you to cut down or stop using drugs? (CAGE substance use question #2) Matt Crawford In the past 3 months , have you felt you should cut down or stop using drugs?(CAGE substance use question #1) Matt Crawford alcohol use, average drinks per day 1-3 drinks per day Shakira Crawford caffeine use, averag e drinks per day no Shakira Crawford drug use none Shakira koenig passive cigarette sm nithin exposure yes Shakira Crawford smoking status Former smoker Shakira Robles social history revie wed E&M reviewed - no changes required Shola Mccray MD social history revie wed E&M reviewed Shola Mccray MD social history revie wed E&M reviewed Chinedu Hay MD seatbelt usage 100 % Shola Mccray MD drug use none Shola Mojica social history revie wed E&M reviewed Shola Mccray MD social history revie wed E&M reviewed Chinedu Hay MD alcohol counseling no Prabha arellano In the past 3 months , have you been waking up wanting to use drugs? (CAGE substance use question #4) N Prabha Arriola In the past 3 months , have you felt guilty or bad about using drugs? (CAGE substance use question #3) N Prabha Arriola In the past 3 months , has anyone annoyed you by telling you to cut down or stop using drugs? (CAGE substance use question #2) N Prabha Arriola In the past 3 months , have you felt you should cut down or stop using drugs?(CAGE substance use question #1) N Prabha Arriola drug use no Prabha driscoll passive cigarette sm nithin exposure yes Prabha Arriola smoking, year quit 1992 Prabha arellano smoking status former smoker Prabha johnson social history revie wed E&M reviewed Dave Ospina RN social history revie wed E&M reviewed Dave Ospina RN social history revie wed E&M reviewed Dave Ospina RN social history revie wed E&M reviewed Shola Mccray MD smoking history, tot al pack/year 20 Freda Davalos MD social history E&M Marital Statu s: L bora with family/friends E thnicity: Dave Ospina RN social history revie wed E&M reviewed Dave Ospina RN drug use none Freda carlson MD social history E&M Marital Statu s: L bora with family/friends E thnicity: Dave Ospina RN social history revie wed E&M reviewed Dave Ospina RN physical exercise, frequency, days per week yes [facility] caffeine use, averag e drinks per day no [facility] alcohol use, average drinks per day 1-3 drinks per day [facility] number of years as a smoker 10 years or more [facility] smoking status Quit [facility] FUNCTIONAL STATUS Date Observation Value Provider HRA, CV Assess/Plan, Angina (inactive) Management Plan continue current therapy Shola Mccray MD MENTAL STATUS Date Observation Value Provider assessment of judgme nt and insight E&M Alert and oriented to time, place and person. Mood and affect are normal. Shola Mccray MD assessment of judgme nt and insight E&M Alert and oriented to time, place and person. Mood and affect are normal. Chinedu Hay MD assessment of judgme nt and insight E&M Alert and oriented to time, place and person. Mood and affect are normal. Shola Mccray MD assessment of judgme nt and insight E&M Alert and oriented to time, place and person. Mood and affect are normal. Dave Ospina RN assessment of judgme nt and insight E&M Alert and oriented to time, place and person. Mood and affect are normal. Dave Ospina RN assessment of judgme nt and insight E&M Alert and oriented to time, place and person. Mood and affect are normal. Dave Ospina RN assessment of judgme nt and insight E&M Alert and oriented to time, place and person. Mood and affect are normal. Dave Ospina RN assessment of judgme nt and insight E&M Alert and oriented to time, place and person. Mood and affect are normal. Shola Mccray MD assessment of judgme nt and insight E&M Alert and oriented to time, place and person. Mood and affect are normal. Dave Ospina RN assessment of judgme nt and insight E&M Alert and oriented to time, place and person. Mood and affect are normal. 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 Patient and I had long discussion. Given option of surgery (bilateral endarterectiomy) vs status quo/medical therapy. Patient states 'I'm 83 years old and do anything I want to. I don't believe I want to have surgery'. I think, given his lack of symptoms, this is the right decsion. Shola Mccray MD [id number],C, B P today: 111/59 P rior BP: 121/68 (07/13/2023) Labs Reviewed: C reat: 0.90 (07/24/2023) C hol: 95 (07/24/2023) HDL: 49 (07/24/2023) His updated medication list for this problem includes: Carvedilol 3.125 Mg Tablet (Carvedilol) Furosemide 40 Mg Tablet (Furosemide) Chinedu Hay MD [id number],S, Chinedu Hay MD [id number],C,P resents to office with headache, pt is concerned that this is related to his carotids. His last carotid duplex showed he has less than 50% stenosis in LICA and 50-69% ALEX. pt was reassured. Chinedu Hay MD [id number],S, Shola gutierrez MD [id number],S,In [facility]. Shola Mccray MD [id number],S, Shola gutierrez MD [id number],N,B ilateral femoral artery stenoses noted on CT TAVR and confirmed by angio during TAVR procedure. 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 Feels much better. Shola Mccray MD [id number],C,n ow hyoptensive will hold BB and entresto Justyna Ventimiglia [facility] [id number],C,i n setting of severe and CMP. Reginaldo hold BB and Entresto at this time to allow patient to take diuretic therapy and manage symptoms. Will resume others as BP tolerates Justyna Ventimiglia [facility] [id number],C,H e has been evaluated for TAVR and is planned of 07/06/23. He is symptomatic and will adjust meds to attempt to manage volume status until procedure date. Justyna Ventimiglia [facility] [id number],S, Shola gutierrez MD [id number],S, Shola gutierrez MD [id number],B, Shola Ramada n [place] [id number],B, Shola Ramada n [place] [id number],S, Shola Ramada n [place] [id number],N,N eeds OAC. W ill enroll in [facility] trial. Shola Ramadan FL [id number],B, Shola Ramada n FL [id number],S, Shola Ramada n [place] [id number],S, Shola Ramada n [place] [id number],S, Shola Ramada n [place] [id number],S, Shola Ramada n [place] [id number],B, Shola Ramada n [place] [id number],S, Shola Ramada n [place] [id number],S, Shola Ramada n [place] [id number],S, Shola Ramada n [place] [id number],S, Shola Ramada n FL [id number],S, Shola Ramada n FL [id number],S, Shola Ramada n [place] [id number],S, Shola Ramada n [place] [id number],S, Shola Ramada n FL [id number],B, Shola Ramada n FL [id number],N,S/P PPM Shola Ramadan FL [id number],B, Shola Ramada n FL [id number],S, Shola Ramada n [place] [id number],B, Shola gutierrez MD [id number],B, Shola gutierrez MD [id number],S,ECHO in 1 yea r to eval valve. Shola Mccray MD Cardiology Shola Mccray MD Cardiology Shola Mccray MD Cardiology Shola Mccray MD Cardiology:Mild by last duplex R jared Mccray MD Cardiology:S/P TAVR Shola gutierrez MD Cardiology Shola Mccray MD Cardiology Shola Mccray MD Cardiology Shola Mccray MD Cardiology Shola Mccray MD Cardiology Shola Mccray MD Cardiology Shola Mccray MD Cardiology:Has bilat eral occluded femoral arteries with complete collateralization. Does not have any symptoms. Does not want to see surgeon. Walks miles without difficulty. 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 Patient and I had long discussion. Given option of surgery (bilateral endarterectiomy) vs status quo/medical therapy. Patient states 'I'm 83 years old and do anything I want to. I don't believe I want to have surgery'. I think, given his lack of symptoms, this is the right decsion. Shola Mccray MD Cardiology: B P today: 111/59 P rior BP: 121/68 (07/13/2023) Labs Reviewed: C reat: 0.90 (07/24/2023) C hol: 95 (07/24/2023) HDL: 49 (07/24/2023) His updated medication list for this problem includes: Carvedilol 3.125 Mg Tablet (Carvedilol) Furosemide 40 Mg Tablet (Furosemide) Chinedu Hay MD Cardiology Chinedu Hay MD Cardiology:Presents to office with headache, pt is concerned that this is related to his carotids. His last carotid duplex showed he has less than 50% stenosis in LICA and 50-69% ALEX. pt was reassured. Chinedu Hay MD Cardiology Shola Mccray MD Cardiology:In [facility] study. Hung Mccray MD Cardiology Shola Mccray MD Cardiology:Bilateral femoral artery stenoses noted on CT TAVR and confirmed by angio during TAVR procedure. 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 Feels much better. Shola Mccray MD Cardiology:now hyopt yonatan will hold BB and entresto Justyna Ventimiglia [employer] Cardiology:in settin g of severe and CMP. Reginaldo hold BB and Entresto at this time to allow patient to take diuretic therapy and manage symptoms. Will resume others as BP tolerates Justyna Ventimiglia [facility] Cardiology:He has be en evaluated for TAVR and is planned of 07/06/23. He is symptomatic and will adjust meds to attempt to manage volume status until procedure date. Justyna Ventimiglia [employer] Cardiology Shola Mccray MD Cardiology Shola Mccray MD Cardiology Shola Mccray MD Cardiology Shola Mccray MD Cardiology Shola Mccray MD Cardiology:Needs OAC . W ill enroll in [place] trial. Shola Mccray MD Cardiology Shola Mccray MD Cardiology Shola Mccray MD Cardiology Shola Mccray MD Cardiology Shola Mccray MD Cardiology Shola Mccray MD Cardiology Shola Mccray MD Cardiology Shola Mccray MD Cardiology Shola Mccray MD Cardiology Shola Mccray MD Cardiology Shola Mccray MD Cardiology Shola Mccray MD Cardiology Shola Mccray MD Cardiology Shola Mccray MD Cardiology Shola Mccray MD Cardiology Shola Mccray MD Cardiology:S/P PPM Shola Mccray MD Cardiology Shola Mccray MD Cardiology Shola Mccray MD Cardiology Shola Mccray MD Cardiology Shola Mccray MD Cardiology:ECHO in 1 year to damir l valve. Shola Mccray MD Cardiology Hospital Follow up Ra adria Mccray MD [facility] Follow up Ra adria Mccray [facility] Follow up Ra adria [facility]ccray [facility] Follow up Ra adria Mccray [facility] Follow up Ra adria Mccray MD Cardiology Shola Mccray MD Cardiology Shola Mccray MD Cardiology Shola Mccray MD Cardiology Shola Mccray MD Cardiology Shola Mccray MD Cardiology Shola Mccray MD Cardiology Follow u p Shola gunderson MD Cardiology Follow u p Shola gunderson MD Cardiology Follow u p Sholashaun gunderson MD Cardiology Follow u p Shola gunderson MD Cardiology Follow u p Shola gunderson MD Cardiology Follow u p Sholashaun gunderson MD Cardiology Sholashaun Mccray MD Cardiology Sholashaun Mccray MD Cardiology Shola Mahendra [place] [facility] Shola Mahen[place] [facility] Shola Ma[place] [facility] Shola Ma[place] [facility] Shola Ma[place] [facility] Shola [place] [facility] Shola [place] [facility] Shola [place] [facility] Follow u p Shola gunderson MD Cardiology Follow u p Shola gunderson MD Cardiology Follow u p Shola gunderson MD Cardiology Follow u p Shola gunderson MD Cardiology Follow u p Shola gunderson MD Cardiology Follow u p Sholashaun gunderson MD fu Shola Mccray MD fu Shola Mccray MD fu:Negative by cath 2010 Shola burr MD fu:S/P porcine AVR 2 011 W ill get yearly ECHO Shola Mccray MD F/U: H is updated medication list for this problem includes: Aspirin 325 Mg Tabs (Aspirin) ..... One tab. daily Orders: E KG ([id number]) Shola Mccray MD F/U: H is updated medication list for this problem includes: Aspirin 325 Mg Tabs (Aspirin) ..... One tab. daily Shola Mccray MD F/U: O rders: C omplete Echo (CPT-97184) Shola Mccray MD F/U: H is updated medication list for this problem includes: Aspirin 325 Mg Tabs (Aspirin) ..... One tab. daily Orders: X -Ray, Chest, PA & Lateral (CPT-38081) Shola Mccray MD follow up: H is updated medication list for this problem includes: Aspirin 325 Mg Tabs (Aspirin) ..... One tab. daily Shola Mccray MD follow up: H is updated medication list for this problem includes: Aspirin 325 Mg Tabs (Aspirin) ..... One tab. daily Shola Mccray MD follow up: B P today: 147/84 Prior BP: 130/75 (12/01/2013) H CT: 42.6 (11/28/2010) Platelets: 150 THOUSAND/UL (11/28/2010) R BC: 4.46 MILLION/UL (11/28/2010) BUN: 18 (11/28/2010) Creat: 0.69 (11/28/2010) Glucose: 117 (11/28/2010) N a+: 140 (11/28/2010) K+: 4.0 (11/28/2010) Cl: 105 (11/28/2010) CHOL: 188 (11/28/2010) LDL: 125 MG/DL (CALC) (11/28/2010) HDL: 48 (11/28/2010) T (11/28/2010) T EE: Normal left ventricular systolic function with an ejection fraction of 55%. Moderately severe aortic stenosis with a peak velocity of 5.7 meters per second across the aortic valve, consistent with a peak gradient of a little over 100 mmHg. Mild mitral and tricuspid regurgitation. 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 (01/06/2011) N uclear Stress Findings: 1. Abnormal myocardial perfusion imaging after vasodilator stress with Regadenoson. 2 . Abnormal left ventricular systolic function with a calculated ejection fraction of 48%. 3 . 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 Calcific aortic stenosis. Normal left ventricular wall motion and contractility. (12/15/2010) Shola Mccray MD follow up: H is updated medication list for this problem includes: Aspirin 325 Mg Tabs (Aspirin) ..... One tab. daily Shola Mccray MD follow up: B P today: 147/84 Prior BP: 130/75 (12/01/2013) H CT: 42.6 (11/28/2010) Platelets: 150 THOUSAND/UL (11/28/2010) R BC: 4.46 MILLION/UL (11/28/2010) BUN: 18 (11/28/2010) Creat: 0.69 (11/28/2010) Glucose: 117 (11/28/2010) N a+: 140 (11/28/2010) K+: 4.0 (11/28/2010) Cl: 105 (11/28/2010) CHOL: 188 (11/28/2010) LDL: 125 MG/DL (CALC) (11/28/2010) HDL: 48 (11/28/2010) T (11/28/2010) T EE: Normal left ventricular systolic function with an ejection fraction of 55%. Moderately severe aortic stenosis with a peak velocity of 5.7 meters per second across the aortic valve, consistent with a peak gradient of a little over 100 mmHg. Mild mitral and tricuspid regurgitation. 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 (01/06/2011) N uclear Stress Findings: 1. Abnormal myocardial perfusion imaging after vasodilator stress with Regadenoson. 2 . Abnormal left ventricular systolic function with a calculated ejection fraction of 48%. 3 . 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 Calcific aortic stenosis. Normal left ventricular wall motion and contractility. (12/15/2010) Shola Mccray MD follow up Chinedu Hay MD follow up: H is updated medication list for this problem includes: Aspirin 325 Mg Tabs (Aspirin) ..... One tab. daily Orders: E KG (CPT-31215) Chinedu Hay MD follow up: H is updated medication list for this problem includes: Aspirin 325 Mg Tabs (Aspirin) ..... One tab. daily Shola Mccray MD follow up: H is updated medication list for this problem includes: Aspirin 325 Mg Tabs (Aspirin) ..... One tab. daily Shola Mccray MD follow up: H is updated medication list for this problem includes: Aspirin 325 Mg Tabs (Aspirin) ..... One tab. daily Shola Mccray MD follow up: H is updated medication list for this problem includes: Aspirin 325 Mg Tabs (Aspirin) ..... One tab. daily Shola Mccray MD follow up: O rders: C omplete Echo (CPT-51844) Shola Mccray MD follow up:will check a stat troponin H is updated medication list for this problem includes: Aspirin 325 Mg Tabs (Aspirin) ..... One tab. daily BP today: 139/68 Prior BP: 110/64 (03/22/2012) N uclear Stress Findings: 1. Abnormal myocardial perfusion imaging after vasodilator stress with Regadenoson. 2 . Abnormal left ventricular systolic function with a calculated ejection fraction of 47%. 3 . There is a fixed defect involving the inferior wall consistent with scar tissue. - GC (03/29/2012) C ardiac Cath: No angiographically identifiable coronary artery disease. Calcific aortic stenosis. Normal left ventricular wall motion and contractility. (12/15/2010) C arotid Doppler/Duplex: Normal GC (11/24/2010) C HOL: 188 (11/28/2010) LDL: 125 MG/DL (CALC) (11/28/2010) HDL: 48 (11/28/2010) T (11/28/2010) H CT: 42.6 (11/28/2010) Platelets: 150 THOUSAND/UL (11/28/2010) R BC: 4.46 MILLION/UL (11/28/2010) BUN: 18 (11/28/2010) Creat: 0.69 (11/28/2010) Glucose: 117 (11/28/2010) N a+: 140 (11/28/2010) K+: 4.0 (11/28/2010) Cl: 105 (11/28/2010) PT: 11.6 (12/01/2010) INR: 1.2 (12/01/2010) Chinedu Hay MD follow up: B P today: 139/68 Prior BP: 110/64 (03/22/2012) H CT: 42.6 (11/28/2010) Platelets: 150 THOUSAND/UL (11/28/2010) R BC: 4.46 MILLION/UL (11/28/2010) BUN: 18 (11/28/2010) Creat: 0.69 (11/28/2010) Glucose: 117 (11/28/2010) N a+: 140 (11/28/2010) K+: 4.0 (11/28/2010) Cl: 105 (11/28/2010) CHOL: 188 (11/28/2010) LDL: 125 MG/DL (CALC) (11/28/2010) HDL: 48 (11/28/2010) T (11/28/2010) T EE: Normal left ventricular systolic function with an ejection fraction of 55%. Moderately severe aortic stenosis with a peak velocity of 5.7 meters per second across the aortic valve, consistent with a peak gradient of a little over 100 mmHg. Mild mitral and tricuspid regurgitation. 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 (01/06/2011) N uclear Stress Findings: 1. Abnormal myocardial perfusion imaging after vasodilator stress with Regadenoson. 2 . Abnormal left ventricular systolic function with a calculated ejection fraction of 47%. 3 . There is a fixed defect involving the inferior wall consistent with scar tissue. - (03/29/2012) C ardiac Cath: No angiographically identifiable coronary artery disease. Calcific aortic stenosis. Normal left ventricular wall motion and contractility. (12/15/2010) Chinedu Hay MD follow up: H is updated medication list for this problem includes: Aspirin 325 Mg Tabs (Aspirin) ..... One tab. daily BP today: 139/68 Prior BP: 110/64 (03/22/2012) N uclear Stress Findings: 1. Abnormal myocardial perfusion imaging after vasodilator stress with Regadenoson. 2 . Abnormal left ventricular systolic function with a calculated ejection fraction of 47%. 3 . There is a fixed defect involving the inferior wall consistent with scar tissue. - (03/29/2012) T EE: Normal left ventricular systolic function with an ejection fraction of 55%. Moderately severe aortic stenosis with a peak velocity of 5.7 meters per second across the aortic valve, consistent with a peak gradient of a little over 100 mmHg. Mild mitral and tricuspid regurgitation. 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 (01/06/2011) C ardiac Cath: No angiographically identifiable coronary artery disease. Calcific aortic stenosis. Normal left ventricular wall motion and contractility. (12/15/2010) H CT: 42.6 (11/28/2010) Platelets: 150 THOUSAND/UL (11/28/2010) R BC: 4.46 MILLION/UL (11/28/2010) BUN: 18 (11/28/2010) Creat: 0.69 (11/28/2010) Glucose: 117 (11/28/2010) N a+: 140 (11/28/2010) K+: 4.0 (11/28/2010) Cl: 105 (11/28/2010) SGOT (AST): 28 (11/28/2010) SGPT (ALT): 28 (11/28/2010) Chinedu Hay MD chest pain: His updated medication list for this problem includes: Aspirin 325 Mg Tabs (Aspirin) ..... One tab. daily Orders: E KG (CPT-16904) S tress Test - Adenosine (19013) Shola Mccray MD chest pain: His updated medication list for this problem includes: Aspirin 325 Mg Tabs (Aspirin) ..... One tab. daily Shola Mccray MD chest pain: His updated medication list for this problem includes: Aspirin 325 Mg Tabs (Aspirin) ..... One tab. daily Shola Mccray MD chest pain: B P today: 110/64 P rior BP: 140/82 (07/14/2011) Labs Reviewed: C reat: 0.69 (11/28/2010) C hol: 188 (11/28/2010) HDL: 48 (11/28/2010) LDL: 125 MG/DL (CALC) (11/28/2010) T (11/28/2010) His updated medication list for this problem includes: Aspirin 325 Mg Tabs (Aspirin) ..... One tab. daily Shola Mccray MD routine-echo prior: H is updated medication list for this problem includes: Aspirin 325 Mg Tabs (Aspirin) ..... One tab. daily BP today: 140/82 Prior BP: 111/68 (04/28/2011) N uclear Stress Findings: 1. Regadenoson mediated myocardial perfusion study 2 . Normal left ventricular systolic function with a calculated ejection fraction of 57%. 3 . There is a fixed defect involving the inferior wall consistent with scar tissue. (11/24/2010) C ardiac Cath: No angiographically identifiable coronary artery disease. Calcific aortic stenosis. Normal left ventricular wall motion and contractility. (12/15/2010) C arotid Doppler/Duplex: Normal (11/24/2010) C HOL: 188 (11/28/2010) LDL: 125 MG/DL (CALC) (11/28/2010) HDL: 48 (11/28/2010) T (11/28/2010) H CT: 42.6 (11/28/2010) Platelets: 150 THOUSAND/UL (11/28/2010) R BC: 4.46 MILLION/UL (11/28/2010) BUN: 18 (11/28/2010) Creat: 0.69 (11/28/2010) Glucose: 117 (11/28/2010) Na+: 140 (11/28/2010) K+: 4.0 (11/28/2010) Cl: 105 (11/28/2010) PT: 11.6 (12/01/2010) INR: 1.2 (12/01/2010) Shola Mccray MD routine-echo prior: B P today: 140/82 Prior BP: 111/68 (04/28/2011) H CT: 42.6 (11/28/2010) Platelets: 150 THOUSAND/UL (11/28/2010) R BC: 4.46 MILLION/UL (11/28/2010) BUN: 18 (11/28/2010) Creat: 0.69 (11/28/2010) Glucose: 117 (11/28/2010) N a+: 140 (11/28/2010) K+: 4.0 (11/28/2010) Cl: 105 (11/28/2010) CHOL: 188 (11/28/2010) LDL: 125 MG/DL (CALC) (11/28/2010) HDL: 48 (11/28/2010) T (11/28/2010) T EE: Normal left ventricular systolic function with an ejection fraction of 55%. Moderately severe aortic stenosis with a peak velocity of 5.7 meters per second across the aortic valve, consistent with a peak gradient of a little over 100 mmHg. Mild mitral and tricuspid regurgitation. 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 (01/06/2011) N uclear Stress Findings: 1. Regadenoson mediated myocardial perfusion study 2 . Normal left ventricular systolic function with a calculated ejection fraction of 57%. 3 . There is a fixed defect involving the inferior wall consistent with scar tissue. (11/24/2010) C ardiac Cath: No angiographically identifiable coronary artery disease. Calcific aortic stenosis. Normal left ventricular wall motion and contractility. (12/15/2010) Shola Mccray MD routine-echo prior: H is updated medication list for this problem includes: Aspirin 325 Mg Tabs (Aspirin) ..... One tab. daily BP today: 140/82 Prior BP: 111/68 (04/28/2011) N uclear Stress Findings: 1. Regadenoson mediated myocardial perfusion study 2 . Normal left ventricular systolic function with a calculated ejection fraction of 57%. 3 . There is a fixed defect involving the inferior wall consistent with scar tissue. (11/24/2010) C ardiac Cath: No angiographically identifiable coronary artery disease. Calcific aortic stenosis. Normal left ventricular wall motion and contractility. (12/15/2010) C arotid Doppler/Duplex: Normal (11/24/2010) C HOL: 188 (11/28/2010) LDL: 125 MG/DL (CALC) (11/28/2010) HDL: 48 (11/28/2010) T (11/28/2010) H CT: 42.6 (11/28/2010) Platelets: 150 THOUSAND/UL (11/28/2010) R BC: 4.46 MILLION/UL (11/28/2010) BUN: 18 (11/28/2010) Creat: 0.69 (11/28/2010) Glucose: 117 (11/28/2010) Na+: 140 (11/28/2010) K+: 4.0 (11/28/2010) Cl: 105 (11/28/2010) PT: 11.6 (12/01/2010) INR: 1.2 (12/01/2010) Shola Mccray MD routine-echo prior: H is updated medication list for this problem includes: Aspirin 325 Mg Tabs (Aspirin) ..... One tab. daily BP today: 140/82 P rior BP: 111/68 (04/28/2011) & #13;Labs Reviewed: C reat: 0.69 (11/28/2010) C hol: 188 (11/28/2010) HDL: 48 (11/28/2010) LDL: 125 MG/DL (CALC) (11/28/2010) T (11/28/2010) Shola Mccray MD routine-echo prior: B P today: 140/82 Prior BP: 111/68 (04/28/2011) H CT: 42.6 (11/28/2010) Platelets: 150 THOUSAND/UL (11/28/2010) R BC: 4.46 MILLION/UL (11/28/2010) BUN: 18 (11/28/2010) Creat: 0.69 (11/28/2010) Glucose: 117 (11/28/2010) N a+: 140 (11/28/2010) K+: 4.0 (11/28/2010) Cl: 105 (11/28/2010) CHOL: 188 (11/28/2010) LDL: 125 MG/DL (CALC) (11/28/2010) HDL: 48 (11/28/2010) T (11/28/2010) T EE: Normal left ventricular systolic function with an ejection fraction of 55%. Moderately severe aortic stenosis with a peak velocity of 5.7 meters per second across the aortic valve, consistent with a peak gradient of a little over 100 mmHg. Mild mitral and tricuspid regurgitation. 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 (01/06/2011) N uclear Stress Findings: 1. Regadenoson mediated myocardial perfusion study 2 . Normal left ventricular systolic function with a calculated ejection fraction of 57%. 3 . There is a fixed defect involving the inferior wall consistent with scar tissue. (11/24/2010) C ardiac Cath: No angiographically identifiable coronary artery disease. Calcific aortic stenosis. Normal left ventricular wall motion and contractility. (12/15/2010) Orders: C omplete Echo (CPT-70977) Shola Mccray MD hospital follow up: H is updated medication list for this problem includes: Aspirin 325 Mg Tabs (Aspirin) ..... One tab. daily BP today: 111/68 Prior BP: 118/68 (01/15/2011) N uclear Stress Findings: 1. Regadenoson mediated myocardial perfusion study 2 . Normal left ventricular systolic function with a calculated ejection fraction of 57%. 3 . There is a fixed defect involving the inferior wall consistent with scar tissue. (11/24/2010) C ardiac Cath: No angiographically identifiable coronary artery disease. Calcific aortic stenosis. Normal left ventricular wall motion and contractility. (12/15/2010) C arotid Doppler/Duplex: Normal (11/24/2010) C HOL: 188 (11/28/2010) LDL: 125 MG/DL (CALC) (11/28/2010) HDL: 48 (11/28/2010) T (11/28/2010) H CT: 42.6 (11/28/2010) Platelets: 150 THOUSAND/UL (11/28/2010) R BC: 4.46 MILLION/UL (11/28/2010) BUN: 18 (11/28/2010) Creat: 0.69 (11/28/2010) Glucose: 117 (11/28/2010) Na+: 140 (11/28/2010) K+: 4.0 (11/28/2010) Cl: 105 (11/28/2010) PT: 11.6 (12/01/2010) INR: 1.2 (12/01/2010) Shola Mccray MD hospital follow up: B P today: 111/68 Prior BP: 118/68 (01/15/2011) H CT: 42.6 (11/28/2010) Platelets: 150 THOUSAND/UL (11/28/2010) R BC: 4.46 MILLION/UL (11/28/2010) BUN: 18 (11/28/2010) Creat: 0.69 (11/28/2010) Glucose: 117 (11/28/2010) N a+: 140 (11/28/2010) K+: 4.0 (11/28/2010) Cl: 105 (11/28/2010) CHOL: 188 (11/28/2010) LDL: 125 MG/DL (CALC) (11/28/2010) HDL: 48 (11/28/2010) T (11/28/2010) T EE: Normal left ventricular systolic function with an ejection fraction of 55%. Moderately severe aortic stenosis with a peak velocity of 5.7 meters per second across the aortic valve, consistent with a peak gradient of a little over 100 mmHg. Mild mitral and tricuspid regurgitation. 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 (01/06/2011) N uclear Stress Findings: 1. Regadenoson mediated myocardial perfusion study 2 . Normal left ventricular systolic function with a calculated ejection fraction of 57%. 3 . There is a fixed defect involving the inferior wall consistent with scar tissue. (11/24/2010) C ardiac Cath: No angiographically identifiable coronary artery disease. Calcific aortic stenosis. Normal left ventricular wall motion and contractility. (12/15/2010) Shola Mccray MD hospital follow up: H is updated medication list for this problem includes: Aspirin 325 Mg Tabs (Aspirin) ..... One tab. daily BP today: 111/68 Prior BP: 118/68 (01/15/2011) N uclear Stress Findings: 1. Regadenoson mediated myocardial perfusion study 2 . Normal left ventricular systolic function with a calculated ejection fraction of 57%. 3 . There is a fixed defect involving the inferior wall consistent with scar tissue. (11/24/2010) C ardiac Cath: No angiographically identifiable coronary artery disease. Calcific aortic stenosis. Normal left ventricular wall motion and contractility. (12/15/2010) C arotid Doppler/Duplex: Normal (11/24/2010) C HOL: 188 (11/28/2010) LDL: 125 MG/DL (CALC) (11/28/2010) HDL: 48 (11/28/2010) T (11/28/2010) H CT: 42.6 (11/28/2010) Platelets: 150 THOUSAND/UL (11/28/2010) R BC: 4.46 MILLION/UL (11/28/2010) BUN: 18 (11/28/2010) Creat: 0.69 (11/28/2010) Glucose: 117 (11/28/2010) Na+: 140 (11/28/2010) K+: 4.0 (11/28/2010) Cl: 105 (11/28/2010) PT: 11.6 (12/01/2010) INR: 1.2 (12/01/2010) Shola Mccray MD hospital follow up: H is updated medication list for this problem includes: Aspirin 325 Mg Tabs (Aspirin) ..... One tab. daily BP today: 111/68 Prior BP: 118/68 (01/15/2011) N uclear Stress Findings: 1. Regadenoson mediated myocardial perfusion study 2 . Normal left ventricular systolic function with a calculated ejection fraction of 57%. 3 . There is a fixed defect involving the inferior wall consistent with scar tissue. (11/24/2010) C ardiac Cath: No angiographically identifiable coronary artery disease. Calcific aortic stenosis. Normal left ventricular wall motion and contractility. (12/15/2010) C arotid Doppler/Duplex: Normal (11/24/2010) C HOL: 188 (11/28/2010) LDL: 125 MG/DL (CALC) (11/28/2010) HDL: 48 (11/28/2010) T (11/28/2010) H CT: 42.6 (11/28/2010) Platelets: 150 THOUSAND/UL (11/28/2010) R BC: 4.46 MILLION/UL (11/28/2010) BUN: 18 (11/28/2010) Creat: 0.69 (11/28/2010) Glucose: 117 (11/28/2010) Na+: 140 (11/28/2010) K+: 4.0 (11/28/2010) Cl: 105 (11/28/2010) PT: 11.6 (12/01/2010) INR: 1.2 (12/01/2010) Shola Mccray MD hospital follow up: H is updated medication list for this problem includes: Aspirin 325 Mg Tabs (Aspirin) ..... One tab. daily BP today: 111/68 P rior BP: 118/68 (01/15/2011) & #13;Labs Reviewed: C reat: 0.69 (11/28/2010) C hol: 188 (11/28/2010) HDL: 48 (11/28/2010) LDL: 125 MG/DL (CALC) (11/28/2010) T (11/28/2010) Shola Mccray MD hospital follow up: B P today: 111/68 Prior BP: 118/68 (01/15/2011) H CT: 42.6 (11/28/2010) Platelets: 150 THOUSAND/UL (11/28/2010) R BC: 4.46 MILLION/UL (11/28/2010) BUN: 18 (11/28/2010) Creat: 0.69 (11/28/2010) Glucose: 117 (11/28/2010) N a+: 140 (11/28/2010) K+: 4.0 (11/28/2010) Cl: 105 (11/28/2010) CHOL: 188 (11/28/2010) LDL: 125 MG/DL (CALC) (11/28/2010) HDL: 48 (11/28/2010) T (11/28/2010) T EE: Normal left ventricular systolic function with an ejection fraction of 55%. Moderately severe aortic stenosis with a peak velocity of 5.7 meters per second across the aortic valve, consistent with a peak gradient of a little over 100 mmHg. Mild mitral and tricuspid regurgitation. 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 (01/06/2011) N uclear Stress Findings: 1. Regadenoson mediated myocardial perfusion study 2 . Normal left ventricular systolic function with a calculated ejection fraction of 57%. 3 . There is a fixed defect involving the inferior wall consistent with scar tissue. (11/24/2010) C ardiac Cath: No angiographically identifiable coronary artery disease. Calcific aortic stenosis. Normal left ventricular wall motion and contractility. (12/15/2010) Shola Mccray MD hospital follow up: H is updated medication list for this problem includes: Aspirin 325 Mg Tabs (Aspirin) ..... One tab. daily BP today: 118/68 Prior BP: 145/79 (11/20/2010) N uclear Stress Findings: 1. Regadenoson mediated myocardial perfusion study 2 . Normal left ventricular systolic function with a calculated ejection fraction of 57%. 3 . There is a fixed defect involving the inferior wall consistent with scar tissue. (11/24/2010) C ardiac Cath: No angiographically identifiable coronary artery disease. Calcific aortic stenosis. Normal left ventricular wall motion and contractility. (12/15/2010) C arotid Doppler/Duplex: Normal (11/24/2010) C HOL: 188 (11/28/2010) LDL: 125 MG/DL (CALC) (11/28/2010) HDL: 48 (11/28/2010) T (11/28/2010) H CT: 42.6 (11/28/2010) Platelets: 150 THOUSAND/UL (11/28/2010) R BC: 4.46 MILLION/UL (11/28/2010) BUN: 18 (11/28/2010) Creat: 0.69 (11/28/2010) Glucose: 117 (11/28/2010) Na+: 140 (11/28/2010) K+: 4.0 (11/28/2010) Cl: 105 (11/28/2010) PT: 11.6 (12/01/2010) INR: 1.2 (12/01/2010) Shola Mccray MD hospital follow up: B P today: 118/68 Prior BP: 145/79 (11/20/2010) H CT: 42.6 (11/28/2010) Platelets: 150 THOUSAND/UL (11/28/2010) R BC: 4.46 MILLION/UL (11/28/2010) BUN: 18 (11/28/2010) Creat: 0.69 (11/28/2010) Glucose: 117 (11/28/2010) N a+: 140 (11/28/2010) K+: 4.0 (11/28/2010) Cl: 105 (11/28/2010) CHOL: 188 (11/28/2010) LDL: 125 MG/DL (CALC) (11/28/2010) HDL: 48 (11/28/2010) T (11/28/2010) T EE: Normal left ventricular systolic function with an ejection fraction of 55%. Moderately severe aortic stenosis with a peak velocity of 5.7 meters per second across the aortic valve, consistent with a peak gradient of a little over 100 mmHg. Mild mitral and tricuspid regurgitation. 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 (01/06/2011) N uclear Stress Findings: 1. Regadenoson mediated myocardial perfusion study 2 . Normal left ventricular systolic function with a calculated ejection fraction of 57%. 3 . There is a fixed defect involving the inferior wall consistent with scar tissue. (11/24/2010) C ardiac Cath: No angiographically identifiable coronary artery disease. Calcific aortic stenosis. Normal left ventricular wall motion and contractility. (12/15/2010) Shola Mccray MD hospital follow up: H is updated medication list for this problem includes: Aspirin 325 Mg Tabs (Aspirin) ..... One tab. daily BP today: 118/68 Prior BP: 145/79 (11/20/2010) N uclear Stress Findings: 1. Regadenoson mediated myocardial perfusion study 2 . Normal left ventricular systolic function with a calculated ejection fraction of 57%. 3 . There is a fixed defect involving the inferior wall consistent with scar tissue. (11/24/2010) C ardiac Cath: No angiographically identifiable coronary artery disease. Calcific aortic stenosis. Normal left ventricular wall motion and contractility. (12/15/2010) C arotid Doppler/Duplex: Normal (11/24/2010) C HOL: 188 (11/28/2010) LDL: 125 MG/DL (CALC) (11/28/2010) HDL: 48 (11/28/2010) T (11/28/2010) H CT: 42.6 (11/28/2010) Platelets: 150 THOUSAND/UL (11/28/2010) R BC: 4.46 MILLION/UL (11/28/2010) BUN: 18 (11/28/2010) Creat: 0.69 (11/28/2010) Glucose: 117 (11/28/2010) Na+: 140 (11/28/2010) K+: 4.0 (11/28/2010) Cl: 105 (11/28/2010) PT: 11.6 (12/01/2010) INR: 1.2 (12/01/2010) Shola Mccray MD hospital follow up: H is updated medication list for this problem includes: Aspirin 325 Mg Tabs (Aspirin) ..... One tab. daily BP today: 118/68 Prior BP: 145/79 (11/20/2010) N uclear Stress Findings: 1. Regadenoson mediated myocardial perfusion study 2 . Normal left ventricular systolic function with a calculated ejection fraction of 57%. 3 . There is a fixed defect involving the inferior wall consistent with scar tissue. (11/24/2010) C ardiac Cath: No angiographically identifiable coronary artery disease. Calcific aortic stenosis. Normal left ventricular wall motion and contractility. (12/15/2010) C arotid Doppler/Duplex: Normal (11/24/2010) C HOL: 188 (11/28/2010) LDL: 125 MG/DL (CALC) (11/28/2010) HDL: 48 (11/28/2010) T (11/28/2010) H CT: 42.6 (11/28/2010) Platelets: 150 THOUSAND/UL (11/28/2010) R BC: 4.46 MILLION/UL (11/28/2010) BUN: 18 (11/28/2010) Creat: 0.69 (11/28/2010) Glucose: 117 (11/28/2010) Na+: 140 (11/28/2010) K+: 4.0 (11/28/2010) Cl: 105 (11/28/2010) PT: 11.6 (12/01/2010) INR: 1.2 (12/01/2010) Shola Mccray MD hospital follow up: H is updated medication list for this problem includes: Aspirin 325 Mg Tabs (Aspirin) ..... One tab. daily BP today: 118/68 P rior BP: 145/79 (11/20/2010) & #13;Labs Reviewed: C reat: 0.69 (11/28/2010) C hol: 188 (11/28/2010) HDL: 48 (11/28/2010) LDL: 125 MG/DL (CALC) (11/28/2010) T (11/28/2010) Shola Mccray MD hospital follow up: O rders: C omplete Echo (CPT-22915) BP today: 118/68 Prior BP: 145/79 (11/20/2010) H CT: 42.6 (11/28/2010) Platelets: 150 THOUSAND/UL (11/28/2010) R BC: 4.46 MILLION/UL (11/28/2010) BUN: 18 (11/28/2010) Creat: 0.69 (11/28/2010) Glucose: 117 (11/28/2010) N a+: 140 (11/28/2010) K+: 4.0 (11/28/2010) Cl: 105 (11/28/2010) CHOL: 188 (11/28/2010) LDL: 125 MG/DL (CALC) (11/28/2010) HDL: 48 (11/28/2010) T (11/28/2010) T EE: Normal left ventricular systolic function with an ejection fraction of 55%. Moderately severe aortic stenosis with a peak velocity of 5.7 meters per second across the aortic valve, consistent with a peak gradient of a little over 100 mmHg. Mild mitral and tricuspid regurgitation. 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 (01/06/2011) N uclear Stress Findings: 1. Regadenoson mediated myocardial perfusion study 2 . Normal left ventricular systolic function with a calculated ejection fraction of 57%. 3 . There is a fixed defect involving the inferior wall consistent with scar tissue. (11/24/2010) C ardiac Cath: No angiographically identifiable coronary artery disease. Calcific aortic stenosis. Normal left ventricular wall motion and contractility. (12/15/2010) Shola Mccray MD Date Name myocardial blood bebe w (PET) Stress Cardiac PET-C T myocardial blood bebe w (PET) Stress Cardiac PET-C T Complete Echo Carotid Duplex Bilat eral PROTHROMBIN TIME WIT H INR LIPID PANEL CBC (INCLUDES DIFF/P LT) BASIC METABOLIC PANE L W/EGFR Complete Echo Complete Echo Complete Echo IRON AND TOTAL IRON BINDING CAPACITY FERRITIN CBC (INCLUDES DIFF/P LT) LIPID PANEL COMPREHENSIVE METABO LIC PANEL, W/EGFR Complete Echo Mobile Cardiac Tele Complete Echo Complete Echo Complete Echo X-Ray, Chest, PA & L ateral Complete Echo STR - Adenosine Complete Echo Complete Echo Troponin I Complete Echo Spirometry Stress Test - Adenos ine Complete Echo Complete Echo Complete Echo Cardiac Cath - GC CBC (INCLUDES DIFF/P LT) LIPID PANEL COMPREHENSIVE METABO LIC PANEL W/EGFR Stress Test - Nuclea r Complete Echo HISTORY OF PROCEDURES Procedure Date Procedure Name Provider Procedure Notes S tatus EKG Shola Mccray MD complete d EKG Shola Mccray MD complete d EKG Shola Mccray MD complete d Mobile Cardiac Telem etry - Tech Shola Mccray MD completed Mobile Cardiac Telem etry - Prof Shola Mccray MD completed EKG Shola Mccray MD complete d SNOMED-CT: [id number] Current Medications Documented Shola Mccray MD completed EKG Shola Mccray MD complete d SNOMED-CT: [id number] Current Medications Documented Shola Mccray MD completed EKG Shola Mccray MD complete d DLCO - [id number] Shola Mccray MD comple meagan FRC - [id number] Shola Mccray MD complet ed FVC - [id number] Shola Mccray MD complet ed EKG Chinedu Hay MD completed EKG Chinedu Hay MD completed EKG Lauryn Hanks completed EKG Iveth Pearson MD complet ed
--- OUTSIDE RECORDS SUMMARY | 2025-02-12 14:36 | XMS_ITS | Clinical Summary ---
Author Organization [facility] Physician Office Building [address] [place] [id number] Care Team Providers Care International Bank Manager Name Role Phone Mahendra Henderson MD, Shola Bryson Unavailable [phone] Miscellaneous, Not In File Unavailable Unava Ry Cevallos MD Primary Care Provider [phone] Mtathew Harvey MD Unavailable [phone] Allergies Active Allergy Reactions Criticality Noted Date Comments Quinine Unknown long time ago , but hospitalized x2 Medications levothyroxine (SYNTHROID, LEVOTHROID) 50 mcg tablet Take 1 tablet (50 mcg total) by mouth compensation and benefits advisor before breakfast 9 Active artificial tears (ISOPTO TEARS) 0.5 % ophthalmic solution Administer 1 drop into both eyes as needed Active citalopram (CeleXA) 20 mg tablet Take 1 tablet (20 mg total) by mouth every morning 1 Active donepeziL (ARICEPT) 10 mg tablet Take 1 tablet (10 mg total) by mouth daily 3 Active cholecalciferol (Vitamin D3) 5,000 unit tablet Take 1 tablet (5,000 Units total) by mouth every morning Active diphenhydrAMINE 25 mg capsule Take 1 tablet/capsule (25 mg total) by mouth every 6 (six) hours as needed for itching or allergies Active apixaban (ELIQUIS) 5 mg tabletIndicatio ns:Other (complete free text reason below),Valve in Valve TAVR Take 1 tablet (5 mg total) by mouth every 12 (twelve) hours 90 tablet 3 3 Active atorvastatin (LIPITOR) 40 mg tablet Take 1 tablet (40 mg total) by mouth nightly Active memantine (NAMENDA) 10 mg tabletIndicatio ns:Moderate to Severe Alzheimer's Type Dementia Take 1 tablet (10 mg total) by mouth 2 (two) times a day Active furosemide (LASIX) 20 mg tablet Take 1 tablet (20 mg total) by mouth every morning 4 Active baclofen (LIORESAL) 5 mg tablet Take 1 tablet (5 mg total) by mouth 3 (three) times a day as needed for muscle spasms 30 tablet 4 Active nitroglycerin (NITROSTAT) 0.[address] 1 tablet (0.4 mg total) under the tongue every 5 (five) minutes as needed for chest pain (chest pain) 90 tablet 4 11/16/20 25 Active Active Problems Problem Noted Date Diagnosed Date Acute chest pain 11/15/2024 S/p TAVR (transcatheter aort ic valve replacement), bioprosthetic 07/06/2023 Shortness of breath 06/07/2023 Syncope and collapse 03/08/2023 Double vision 03/07/2023 Positive D dimer 03/07/2023 Complex renal cyst, left 03/07/2023 Pulmonary nodules 03/07/2023 Lymphadenopathy 03/07/2023 Adrenal nodule, right 03/07/2023 Atrial fibrillation 01/12/2023 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 It is more pronounced on the left side than on the right. He also notes weakness in the legs and has developed some progressive atrophy. He is not as active as he used to be but this could be part of a peripheral neuropathy. He is not myelopathic at this time. Would recommend evaluation by a neurologist and referral was given. Primary osteoarthritis of left ankle 03/24/2021 Assessment & Plan (03/24/2021 6:08 PM CDT): Patient has moderate arthritis of left ankle that could produce pain and stiffness. Intermittent elevation and topical rubs with Voltaren may be beneficial. This stage he does not require surgical intervention Failed orthopedic implant 07/02/2020 Assessment & Plan (11/11/2020 10:39 AM UI DEVELOPER WITH ANGULAR JS): Patient is doing extremely well following revision surgery with patella tendon repair nearly three months ago. The patient should continue with his physical therapy and extension was provided. He is return the office in six weeks. He should continue with topical antibiotic locally to his eschar until it is completely healed. 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 The implant is now failed and having failed respond to conservative measures he wants proceed with definitive treatment. Revising the unicompartmental knee replacement would entail removing the retained components and performing revision total knee replacement with likely long-stemmed tibial component to had stability. Patient should be enrolled in a total knee protocol. Will check a total protein albumin vitamin-D and hemoglobin A1c level to assess as wound healing potential. He is to take iron two weeks prior to surgery in preparation for perioperative blood loss. Would recommend preoperative medical clearance as he does have a porcine heart valve. Pending clearance and a check of his COVID-19 will plan on performing knee replacement surgery. The risks of knee replacement surgery include infection, incisional numbness, keloid formation, neurovascular compromise, blood loss, blood clots, fracture dislocation, wherewith possible need for revision, medical and anesthetic risks including . The risks and benefits were explained the patient is wanting to proceed and we will schedule surgery when convenient for the patient. Closed nondisplaced fracture of medial epicondyle of left humerus 10/16/2019 Assessment & Plan (11/20/2019 10:58 AM UI DEVELOPER WITH ANGULAR JS): Patient's fracture is essentially healed. He should be working on vegac-ha-xyvsar exercises. Warm soaks may be helpful specially with colder weather. Assessment & Plan (10/16/2019 5:41 PM UI DEVELOPER WITH ANGULAR JS): The patient has a nondisplaced fracture of the medial epicondyle. He was given the option of a cast or splint elected undergo splinting. He is return the office for follow-up films out of the splint in 3-4 weeks to assess the healing. With his advanced posttraumatic arthritis of the elbow would be advisable to get him moving as soon as possible. In the meantime he should be keeping the elbow elevated with ice packs until the acute pain and swelling subsides. Closed displaced fracture of lateral end of left clavicle 03/13/2019 Assessment & Plan (03/13/2019 11:13 AM CDT): Patient has a displaced comminuted left clavicle fracture. Generally these heal well with conservative measures. He was switched over to a clavicle strap which should be tightened regularly. He may find he is more comfortable sleeping somewhat upright in reclining chair and would apply ice packs liberally over the next 72 hr. He should avoid heavy lifting pushing or pulling with the arm. He is return the office in two weeks for follow-up films Recurrent subluxation of right patella 8 Assessment & Plan (06/13/2018 2:28 PM CDT): Patient does not have any gross instability but does have mild lateral subluxation of the patella may benefit from a VMO conditioning program in physical therapy. A knee brace was provided to keep from him falling. He has wear the brace when weight-bearing. Would like to reassess in six weeks Dizziness 05/18/2018 Palpitations 05/18/2018 Closed supracondylar fracture of left humerus Assessment & Plan (12/06/2017 11:20 AM UI DEVELOPER WITH ANGULAR JS): Patient no longer requires cast immobilization. Patient was advised warm soaks and stretching should be performed on a regular basis. He would like physical therapy was advised to call would be happy to arrange for him [place] of left foot 11/15/2017 Left supracondylar humerus f racmina, closed, initial encounter 11/08/2017 Assessment & Plan (11/08/2017 1:17 PM UI DEVELOPER WITH ANGULAR JS): Patient was placed in a long-arm cast. His knee surgery for later this month was postponed as he will need to be able to weightbear through the left arm. He is return the office in four weeks for cast removal and follow-up films Arthritis of left knee 09/14/2017 Assessment & Plan (10/23/2020 4:04 PM UI DEVELOPER WITH ANGULAR JS): Patient is at a point where he can discontinue use of the brace. This may encourage better range of motion for his knee. He is continue with topical wound care for the one remaining area that has not fully healed. Antibiotic ointments were provided Assessment & Plan (09/24/2020 9:01 AM CDT): Patient is doing extremely well status post revision total knee replacement with patella tendon grafting. At this stage is brace was adjusted so he can flex the knee 30 . In two weeks on his return will increase it to 60 for three more weeks. At which point he will graduate altogether from the brace. He can remove the brace at night when in bed but needs to reapply before getting up to walk. Assessment & Plan (09/14/2017 8:37 AM CDT): Patient has advanced arthritic changes throughout his knee with the mechanical locking recurrent effusions. Would recommend revision of his partial knee replacement to a full total knee. The patient is going to be evaluated this week by his gastroenterology nurse and will get back to us on the timing of his surgery. In the event that his foot need surgery may be best to have this done 1st Acquired claw toe of left foot 09/14/2017 Assessment & Plan (09/14/2017 8:36 AM CDT): Patient has a painful claw toe with a dorsal callus. He might benefit from surgical reconstruction of the toe and certainly evaluation. He was given referral to Dr. Jesus foot [facility] subspecial[facility]. In the event that he wants to have his knee revised she most likely should have the foot work done 1st and then would be happy to proceed with the revision total knee replacement for his failing unicompartmental knee. Acute peptic ulcer 09/14/2017 Rotator cuff tendinitis 06/08/2017 Assessment & Plan (06/08/2017 10:41 AM CDT): The patient was given a cortisone injection into the subacromial space. He tolerated the procedure well. He should avoid overuse and would expect over the coming days for him to have increased relief of pain and motion of the shoulder Primary osteoarthritis of left shoulder 06/08/20 17 Assessment & Plan (06/08/2017 10:41 AM CDT): Patient has advanced arthritic changes at the acromioclavicular joint and lesser extent the glenohumeral joint. If he is not responding the cortisone consideration for decompressive surgery may be required Carpal tunnel syndrome 09/09/2015 Overview (03/06/2017): Carpal tunnel syndrome, right upper limb Arthritis of hand 09/09/2015 Overview (03/06/2017): Arthritis of hand, right Assessment & Plan (06/08/2017 10:42 AM CDT): Patient has pronounced arthritic changes in the hands primarily at the MCP joints. Would recommend obtaining a rheumatoid factor to help determine whether his patterns consistent with rheumatoid arthritis or not. Will call with results of labs unavailable Atherosclerosis of coronary artery 03/03/2011 Fluid overload 11/20/2010 Chest pain 11/19/2010 Aortic valve stenosis 11/29/1959 Cardiac murmur 11/29/1959 Hypertension 11/29/1959 Resolved Problems Problem Noted Date Diagnosed Date Resolved Date SOB (shortness of breath) 03/22/2012 Encounters Date Type Department Care Team Description 11/15/2024 3:41 PM UI DEVELOPER WITH ANGULAR JS - 11/16/2024 6:00 PM UI DEVELOPER WITH ANGULAR JS Hospital Encounter [place] [id number] Brooks Go MD Brother, Michele, MD Rivera, Samantha, MD Acute chest pain (Primary Dx) Discharge Disposition: Discharge to home or self care from Last 3 Months Immunizations Immunization Administration Dates Next Due Influenza, Unspecified 08/25/2020 Td, adsorbed 03/11/2019 Surgical History Surgery Date Site/Laterality Comments CARPAL TUNNEL RELEASE Bilateral Carpal tunnel release CARDIAC VALVE REPLACEMENT 11/29/2010 - 11/28/2011 Aortic PARTIAL KNEE ARTHROPLASTY Bilateral ARM SURGERY Left fracture repair, with nubia placement REPLACEMENT TOTAL KNEE Right Revision 08/28/2020 KNEE ARTHROSCOPY Bilateral INSERT / REPLACE / REMOVE PACEMAKER 01/27/2022 - 02/26/2022 Medical History Medical History Date Comments Chronic coronary artery disease Coronary artery disease Arthritis Hypothyroidism Clavicle fracture 2018 CHF (congestive heart failure) (HCC) Hypertension Aortic valve stenosis Atrial fibrillation (HCC) Family History Medical History Relation Name Comments Cancer Father Cancer, unknown ; Relation Name Status Comments Father Mother Social History Tobacco Use Types Packs/Day Years Used Date Smoking Tobacco: Former Cigarettes Q uit: 1970 Smokeless Tobacco: Former Tobacco Cessation:Counseling Given: Not Answered Comments:quit 30 years ago Alcohol Use Standard Drinks/Week Comments Yes 0 (1 standard drink = 0.6 oz pur e alcohol) 12 pack/week Social Connection and Isolat ion Panel [NHANES] Answer Date Recorded In a typical week, how many times do you talk on the phone with family, friends, or neighbors? More than three times a week 06/09/2023 How often do you get togethe r with friends or relatives? More than three times a week 06/09/2023 Attends Congregation Services Not on file 06/09 Active Member of Clubs or Organizations Not on f ile 06/09/2023 Attends Club or Organization Meetings Not on rika e 06/09/2023 Are you , , di vorced, , never , or living with a partner? 06/09/2023 AUDIT-C Answer Date Recorded Q1: How often do you have a drink containing alcohol? 4 or more times a week 03/09/2023 Q2: How many drinks containi ng alcohol do you have on a typical day when you are drinking? 1 or 2 Q3: How often do you have si x or more drinks on one occasion? Daily or almost daily 03/09/2023 Overall Financial Resource Strain (CARDIA) Answe r Date Recorded How hard is it for you to pa y for the very basics like food, housing, medical care, and heating? Not hard at all 06/09/2023 PHQ-2 Answer Date Recorded PHQ-2 Total Score (If total score is 3 or more points, staff should administer the PHQ-9) 0 03/07/2023 [facility] - Occupational Stress Questionnaire Answer Date Recorded Do you feel stress - tense, restless, nervous, or anxious, or unable to sleep at night because your mind is troubled all the time - these days? Not at all 03/09/2023 Exercise Vital Sign Answer Date Recorde d On average, how many days pe r week do you engage in moderate to strenuous exercise (like a brisk walk)? 0 days 03/09/2023 On average, how many minutes do you engage in exercise at this level? 0 min 03/09/2023 Hunger Vital Sign Answer Date Recorded Within the past 12 months, y ou worried that your food would run out before you got the money to buy more. Never true 06/09/20 23 Within the past 12 months, t he food you bought just didn't last and you didn't have money to get more. Never true 06/09/2023 PRAPARE - Transportation Answer Date Re corded In the past 12 months, has l ack of transportation kept you from medical appointments or from getting medications? No 05/29 In the past 12 months, has l ack of transportation kept you from meetings, work, or from getting things needed for daily living? No 06/09/2023 Housing Stability Vital Sign Answer Sidney e Recorded In the last 12 months, was t here a time when you were not able to pay the mortgage or rent on time? No 06/09/2023 Number of Places Lived in the Last Year Not on f ile 06/09/2023 In the last 12 months, was t here a time when you did not have a steady place to sleep or slept in a care home (including now)? No 06/09/2023 Personal Safety Answer Date Recorded Have you ever been in or are you currently in a harmful physical or emotional relationship or is someone making you feel afraid or unsafe? Denies 11/15/2024 Education Answer Date Recorded What is the highest level of school you have completed or the highest degree you have received? 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 file Not on file Not on file Obstetrics History Last Filed Vital Signs Vital Sign Reading Time Taken Comments Blood Pressure 145/83 11/16/2024 11:07 AM UI DEVELOPER WITH ANGULAR JS Pulse 62 11/16/2024 11:07 AM UI DEVELOPER WITH ANGULAR JS Temperature 36.8 C (98.2 F) 11/16/2024 11:07 AM UI DEVELOPER WITH ANGULAR JS Respiratory Rate 18 11/16/2024 11:07 AM UI DEVELOPER WITH ANGULAR JS Oxygen Saturation 94% 11/16/2024 11:07 AM UI DEVELOPER WITH ANGULAR JS Inhaled Oxygen Concentration - - Weight 83.9 kg (185 lb) 11/15/2024 10:30 PM UI DEVELOPER WITH ANGULAR JS Height 175.3 cm (5' 9 ) 11/15/2024 10:30 PM UI DEVELOPER WITH ANGULAR JS Body Mass Index 27.32 11/15/2024 10:30 PM UI DEVELOPER WITH ANGULAR JS Plan of Treatment Health Maintenance Due Date Last Done Comments Hepatitis B Screening 1958 Pneumococcal vaccine 65+ (1 of 2 - PCV) 1959 Zoster Vaccine (1 of 2) 1990 Well Visit 65+ 2005 DTaP/Tdap/Td Vaccine (1 - Tdap) 03/12/2019 9 Depression Screening 03/06/2024 03/06/2023, 03/06/20 23 Influenza Vaccine (#1) 2024 0, 08/25/2018, 08/23/2017, Additional history exists Fall Risk Assessment 11/16/2025 11/16/2024 Medical Devices Implanted Type Area Fine Craft Artist Device Identifier Shelf Expiration Date Model / Serial / Lot Tierra [employer] [id number] Persona 14mm 30+ Mm Knee Tibia Taper Extension Stem - [id number] Implanted:Qty: 1 on 08/28/2020 by Gualberto New MD at [facility] [employer] [id number] 06/22/2030 [id number] / / [id number] [facility] [place] [employer] [facility] [id number] Surelock 2.2mm Flexible Licensing Coordinator Preload 2 Damascus Suture Uhmwpe - [id number] Implanted:Qty: 3 on 08/28/2020 by Gualberto New MD at [facility] Left: Patella [employer]ierra [employer] Inc 05/19/2022 [id number] / / [id number] Tierra [employer] Inc [id number] 2.9mm Drill Damascus Suture - [id number] Implanted:Qty: 1 on 08/28/2020 by Gualberto New MD at [facility] Left: Knee [employer] 06/06/2021 [id number] / / [id number] [facility] [place] Matcha Cm-9329 Quattro Force Fiber Od2.9 Mm 2 Cannula Preload Unique Eyelet Design Glenoid Damascus Suture Peek Shoulder Labral Repair System - [id number] Implanted:Qty: 1 on 08/28/2020 by Gualberto New MD at [facility] Left: Knee [employer]ierra [employer] Inc 03/28/2021 CM-9329 / / [id number] [employer] Medical Inc [id number] [place] R High Viscosity Cement 40gm Bone Green - [id number] Implanted:Qty: 2 on 08/28/2020 by Gualberto New MD at [facility] [email or web address] Inc [id number] 02/26/2023 [id number] / / [id number] Tierra Us Inc [id number] Persona 38mm Knee Component Patellar All Poly Sterile - [id number] Implanted:Qty: 1 on 08/28/2020 by Gualberto New MD at [facility] Left: Knee [employer] [id number] 04/28/2026 [id number] / / [id number] Tierra Us Inc [id number] Persona Cemented Stem Knee Left 5d H Baseplate Tibial Tivanium - [id number] Implanted:Qty: 1 on 08/28/2020 by Gualberto New MD at [facility] Left: Knee [employer]ierra [employer] Inc [id number] 10/28/2029 [id number] / / [id number] Tire[employer] Us Inc [id number] Persona Cruciate Retain Cemented Knee Left 8 Standard Component - [id number] Implanted:Qty: 1 on 08/28/2020 by Gualberto New MD at [facility] Left: Knee [employer] Inc [id number] 05/28/2029 [id number] / / [id number] [employer] Medical Inc Cm-[id number] Surelock 2.2mm Flexible Licensing Coordinator Preload 2 Damascus Suture Uhmwpe - [id number] Implanted:Qty: 1 on 08/28/2020 by Gualberto New MD at [facility] Left: Patella [employer] 05/19/2022 CM-9622F / / [id number] Tierra [employer]omet Inc [id number] Persona 13mm Cruciate Retain Knee 8-11 Insert Articular Vivacit-E Latex Free - [id number] Implanted:Qty: 1 on 08/28/2020 by Gualberto New MD at [facility] [employer] Inc [id number] 01/27/2024 [id number] / / [id number] [employer] Cm-9129 Quattro Link 2.9mm Knotless Damascus Suture Sterile Shoulder System - [id number] Implanted:Qty: 1 on 08/28/2020 by Gualberto New MD at [facility] Left: Knee [employer] Inc 07/24/2024 CM-9129 / / [id number] Lifenet Fatb Flexigraft 160mm Frozen Block Graft Soft Tissue Achilles Tendon - [id number] Implanted:Qty: 1 on 08/28/2020 by Gualberto New MD at [facility] Left: Patella [employer] 10/17/2022 [id number] / / [id number] Biotronik Inc [id number] Promri Solia S 60cm Lead Pacing Steroid Eluting - [id number] - [id number] Implanted:Qty: 1 on 02/02/2022 by Shola Mccray Jr., MD at [facility] Left: Chest [employer] Inc 11/28/2023 [id number] / [id number] / Biotronik Inc [id number] Solia S 53cm Steroid Elute Bipolar Active Fixation Endocardial - [id number] - [id number] Implanted:Qty: 1 on 02/02/2022 by Shola cMcray Jr., MD at [facility] Left: Chest [employer] Inc 11/28/2023 [id number] / [id number] / Biotron[employer] Inc [id number] Edora Promri 31a20s0.5mm Dual Chamber Rate Adaptive Unipolar Bipolar - [id number] - [id number] Implanted:Qty: 1 on 02/02/2022 by Shola Mccray Jr., MD at [facility] Left: Chest [employer] Inc 05/28/2023 [id number] / [id number] / Jaquez Lifesciences Nadia 3 Commander Jaquez 26mm Transcatheter Ultra Low Profile [id number] - [id number] - [id number] Implanted:Qty: 1 on 07/06/2023 by Kadeem Sen MD at [facility] [employer] 03/09/2026 [id number] / [id number] / [employer] Device Clsr Perclose Prostyle Sut-Mediatd Closure-Repair Sys 85335-15 - [id number] Implanted:Qty: 1 on 07/06/2023 by Kadeem Sen MD at [facility] [employer] 03/28/2025 [id number] / / [id number] [employer] Device Clsr Perclose Prostyle Sut-Mediatd Closure-Repair Sys 36492-08 - [id number] Implanted:Qty: 1 on 07/06/2023 by Kadeem Sen MD at [facility] [employer] 03/28/2025 [id number] / / [id number] [employer] Device Clsr Perclose Prostyle Sut-Mediatd Closure-Repair Sys 27198-14 - [id number] Implanted:Qty: 1 on 07/06/2023 by Kadeem Sen MD at [facility] [employer] 02/26/2025 [id number] / / [id number] [employer] Device Clsr Perclose Prostyle Sut-Mediatd Closure-Repair Sys 90407-72 - [id number] Implanted:Qty: 1 on 07/06/2023 by Kaedem Sen MD at [facility] [employer] 03/28/2025 [id number] / / [id number] Procedures Procedure Name Priority Date/Time Associated Diagnosis Comments TROPONIN T HIGH-SENSITIVITY 6-HOUR Timed 11/15/2024 10:39 PM UI DEVELOPER WITH ANGULAR JS TROPONIN T HIGH-SENSITIVITY 4-HR Timed 11/15/2024 7:51 PM UI DEVELOPER WITH ANGULAR JS TROPONIN T HIGH-SENSITIVITY 2-HOUR Timed 11/15/2024 6:10 PM UI DEVELOPER WITH ANGULAR JS XR CHEST 1 VIEW ED 11/15/2024 4:20 PM UI DEVELOPER WITH ANGULAR JS EGFR STAT 11/15/2024 4:00 PM UI DEVELOPER WITH ANGULAR JS DIFFERENTIAL AUTO STAT 11/15/2024 4:0 0 PM UI DEVELOPER WITH ANGULAR JS TROPONIN T HIGH-SENSITIVITY SERIES (BASELINE, 2HR, 4HR, 6HR) STAT 11/15/2024 4:00 PM UI DEVELOPER WITH ANGULAR JS COMPREHENSIVE METABOLIC PANEL STAT 11/15/2024 4:00 PM UI DEVELOPER WITH ANGULAR JS CBC WITH AUTO DIFFERENTIAL STAT 11/15/2024 4:00 PM UI DEVELOPER WITH ANGULAR JS ECG 12-LEAD STAT 11/15/2024 3:46 PM UI DEVELOPER WITH ANGULAR JS from Last 3 Months Results * Troponin T high-sensitivity 6-hour (11/15/2024 10:39 PM UI DEVELOPER WITH ANGULAR JS) Trop T hs 17 <=22 ng/L Comment: Interpretive Data For further hscTnT resources including the diagnostic algorithm and an aid in interpretation, copy and paste this link: [email or web address] Current Interpretive Data last revised 2020. Trop T hs delta -1 ng/L FELECIA MENCHACA Trop T hs interp Insignificant FELECIA MENCHACA Blood 11/15/2024 10:3 9 PM UI DEVELOPER WITH ANGULAR JS 11/15/2024 10:43 PM UI DEVELOPER WITH ANGULAR JS us Alisha Tiawri MD LAB BLOOD ORDERABLES Fi nal Result [facility] [address] Department [place] [address] * Troponin T high-sensitivity 4-hour (11/15/2024 7:51 PM UI DEVELOPER WITH ANGULAR JS) Trop T hs 16 <=22 ng/L Comment: Interpretive Data For further hscTnT resources including the diagnostic algorithm and an aid in interpretation, copy and paste this link: [email or web address] Current Interpretive Data last revised 2020. Trop T hs delta -2 ng/L [facility] Trop T hs interp Insignificant [facility] Blood 11/15/2024 7:51 PM UI DEVELOPER WITH ANGULAR JS 11/15/2024 7:56 PM UI DEVELOPER WITH ANGULAR JS Alisha Tiwari MD LAB BLOOD ORDERABLES Fi nal Result Performing Organization Address City/[facility]/ZIP Co de Phone Number [facility] [address] [place] [address] * Troponin T high-sensitivity 2-hour (11/15/2024 6:10 PM UI DEVELOPER WITH ANGULAR JS) Trop T hs 17 <=22 ng/L Comment: Interpretive Data For further hscTnT resources including the diagnostic algorithm and an aid in interpretation, copy and paste this link: [email or web address] Current Interpretive Data last revised 2020. Trop T hs delta -1 ng/L [facility] Trop T hs interp Insignificant [facility] CH Blood 11/15/2024 6:10 PM UI DEVELOPER WITH ANGULAR JS 11/15/2024 6:13 PM UI DEVELOPER WITH ANGULAR JS Alisha Tiwari MD LAB BLOOD ORDERABLES Fi nal Result FELECIA [address] [facility] [place] [address] * XR Chest 1 Vw Portable (if patient condition/safety warrant portable) (11/15/2024 4:20 PM UI DEVELOPER WITH ANGULAR JS) Anatomical Region Laterality Modality Body, Chest N/A Computed Radiogr aphy 11/15/2024 4:24 PM UI DEVELOPER WITH ANGULAR JS Impressions 11/15/2024 4:24 PM UI DEVELOPER WITH ANGULAR JS FINDINGS/IMPRESSION: Pacer leads are intact. No pneumothorax or pleural effusion. Cardiomediastinal silhouette within normal limits. Poststernotomy changes. No consolidation. Electronically signed by: Fco Reagan II, D.O. Narrative 11/15/2024 4:24 PM UI DEVELOPER WITH ANGULAR JS EXAMINATION: XR CHEST 1 VIEW DATE: 11/15/2024 4:05 PM INDICATION: Chest pain COMPARISON: 03/17/2024. Procedure Note Fco Reagan II, DO - 11/15/2024 EXAMINATION: XR CHEST 1 VIEW DATE: 11/15/2024 4:05 PM INDICATION: Chest pain COMPARISON: 03/17/2024. IMPRESSION: FINDINGS/IMPRESSION: Pacer leads are intact. No pneumothorax or pleural effusion. Cardiomediastinal silhouette within normal limits. Poststernotomy changes. No consolidation. Electronically signed by: Fco Reagan II, D.O. Brooks Go MD IMG XR PROCEDURES Final Re sult * Troponin T high-sensitivity series (baseline, 2hr, 4hr, 6hr) (11/15/2024 4:00 PM UI DEVELOPER WITH ANGULAR JS) Trop T hs 18 <=22 ng/L Comment: Interpretive Data For further hscTnT resources including the diagnostic algorithm and an aid in interpretation, copy and paste this link: [email or web address] Current Interpretive Data last revised 2020. Blood 11/15/2024 4:00 PM UI DEVELOPER WITH ANGULAR JS 11/15/2024 4:00 PM UI DEVELOPER WITH ANGULAR JS Brooks Go MD LAB BLOOD ORDERABLES Final Result [facility] [address] Department [place] [address] * eGFR (11/15/2024 4:00 PM UI DEVELOPER WITH ANGULAR JS) eGFR 85 >=60 mL/min/1. 73 m2 Comment: Interpretive Data Reference Interval Normal >/= 90 mL/min/1.73m2 Mildly decreased* 60 - 89 mL/min/1.73m2 Mildly to moderately decreased 45 - 59 mL/min/1.73m2 Moderately to severely decreased 30 - 44 mL/min/1.73m2 Severely decreased 15 - 29 mL/min/1.73m2 Kidney Failure < 15 mL/min/1.73m2 *Relative to young adult level Estimated glomerular filtration rate is determined by the 2020 CKD-EPI equation recommended by the National Kidney [employer] (A Unifying Approach to GFR Estimation: Recommendations of the NKF-ASK Task Force on Reassessing the Inclusion of Race in Diagnosing Kidney Disease, JASN 2020). The CKD-EPI equation should not be used for patients with unstable renal function and has not been validated in children and those over 70. Current interpretive data was last reviewed 2021. Blood 11/15/2024 4:00 PM UI DEVELOPER WITH ANGULAR JS 11/15/2024 4:01 PM UI DEVELOPER WITH ANGULAR JS us Brooks Go MD LAB BLOOD ORDERABLES Final Result [facility] [address] Department [place] [address] * Differential, auto (11/15/2024 4:00 PM UI DEVELOPER WITH ANGULAR JS) Pathologist [facility] Neutrophil abs 2.6 1.5 - 6.5 K/cumm Imm gran abs 0.0 0.0 - 0.1 K/cumm [facility] Lymphocyte abs 1.7 0.8 - 3.3 K/cumm [facility] Monocyte abs 0.5 0.2 - 0.8 K/cumm [facility] Eosinophil abs 0.2 0.0 - 0.5 K/cumm [facility] Basophil abs 0.0 0.0 - 0.1 K/cumm [facility] Neutrophil pct 51.3 % [facility] Comment: Interpretive Data Percent cell count reference ranges are not reported, since discordance with absolute values may lead to misinterpretation of CBC data. Current Interpretive Data was last revised on 2018. Imm gran pct 0.2 % [facility] Comment: Interpretive Data Percent cell count reference ranges are not reported, since discordance with absolute values may lead to misinterpretation of CBC data. Current Interpretive Data was last revised on 2018. Lymphocyte pct 33.9 % [facility] Comment: Interpretive Data Percent cell count reference ranges are not reported, since discordance with absolute values may lead to misinterpretation of CBC data. Current Interpretive Data was last revised on 2018. Monocyte pct 9.3 % [facility] Comment: Interpretive Data Percent cell count reference ranges are not reported, since discordance with absolute values may lead to misinterpretation of CBC data. Current Interpretive Data was last revised on 2018. Eosinophil pct 4.5 % [facility] Comment: Interpretive Data Percent cell count reference ranges are not reported, since discordance with absolute values may lead to misinterpretation of CBC data. Current Interpretive Data was last revised on 2018. Basophil pct 0.8 % [facility] Comment: Interpretive Data Percent cell count reference ranges are not reported, since discordance with absolute values may lead to misinterpretation of CBC data. Current Interpretive Data was last revised on 2018. Blood 11/15/2024 4:00 PM UI DEVELOPER WITH ANGULAR JS 11/15/2024 4:00 PM UI DEVELOPER WITH ANGULAR JS us Brooks Go MD LAB BLOOD ORDERABLES Final Result [facility] [address] Department [place] [address] * CBC with auto differential (11/15/2024 4:00 PM UI DEVELOPER WITH ANGULAR JS) WBC 5.1 3.8 - 9.9 K/cumm Hgb 14.5 13.0 - 17.5 g/dL [facility] Hct 43.4 38.9 - 50.3 % [facility] Plt 165 150 - 400 K/cumm [facility] MPV 9.7 9.1 - 12.3 fL [facility] RBC 4.64 4.30 - 5.80 M/cumm [facility] MCV 93.5 81.3 - 96.4 fL [facility] CH MCH 31.3 27.1 - 33.3 pg CERNER CH MCHC 33.4 32.3 - 35.7 g/dL [facility] CH RDW CV 14.0 11.1 - 14.9 % [facility] CH RDW SD 48.0 35.7 - 48.1 fL [facility] NRBC abs 0.00 0.00 - 0.01 K/cumm [facility] CH Blood Venous blood specimen / Unknown 11/15/2024 4:00 PM UI DEVELOPER WITH ANGULAR JS 11/15/2024 4:00 PM UI DEVELOPER WITH ANGULAR JS us Brooks Go MD LAB [place]LOOD [place] [address] [address] Department [place] [address] * Comprehensive metabolic panel (11/15/2024 4:00 PM UI DEVELOPER WITH ANGULAR JS) Sodium 144 135 - 145 mmol/L Potassium, pl 4.1 3.3 - 4.9 mmol/L [facility] Chloride 107 97 - 110 mmol/L [facility] CO2 24 22 - 32 mmol/L [facility] Anion gap 13 2 - 15 mmol/L [facility] BUN 10 6 - 25 mg/dL [facility] Creatinine 0.86 0.80 - 1.30 mg/dL [facility] Glucose 91 70 - 199 mg/dL [facility] Comment: Interpretive Data Fasting glucose >/= 126 mg/dl is diagnostic for diabetes. Fasting is defined as no caloric intake for at least 8 hours. Fasting glucose between 100 mg/dl to 125 mg/dl is diagnostic of prediabetes. In a patient with classic symptoms of hyperglycemia or hyperglycemic crisis, a random glucose >/= 200 mg/dl is diagnostic for diabetes. In the absence of unequivocal hyperglycemia, results should be confirmed by repeat testing. The classification and Diagnosis of Diabetes Diabetes Care 2021; 46: S19-S40. Current interpretive data was last revised 2022. Calcium 9.6 8.5 - 10.3 mg/dL [facility] Bilirubin, total 0.9 0.1 - 1.2 mg/dL [facility] Protein, pl 7.4 6.5 - 8.5 g/dL [facility] Albumin 4.3 3.5 - 5.0 g/dL [facility] Alk phos 90 40 - 130 Units/L [facility] ALT 28 7 - 55 Units/L [facility] CH AST 35 10 - 50 Units/L [facility] CH Blood 11/15/2024 4:0 0 PM UI DEVELOPER WITH ANGULAR JS 11/15/2024 4:00 PM UI DEVELOPER WITH ANGULAR JS Brooks Go MD LAB BLOOD ORDERABLES Final Result [facility] [address] Department [place] [address] * ECG 12 lead (11/15/2024 3:46 PM UI DEVELOPER WITH ANGULAR JS) 11/15/2024 3:46 PM UI DEVELOPER WITH ANGULAR JS Narrative [facility] - 11/15/2024 6:03 PM UI DEVELOPER WITH ANGULAR JS Vent Rate: 59 bpm RR Interval: 1005 msec NV Interval: 0 msec QRS Duration: 197 msec QT Interval: 526 msec QTC Interval: 526 msec P-R-T Thayer: 0 - -72 - 89 degrees IMPRESSION: ELECTRONIC VENTRICULAR PACEMAKER Electronically Signed By: Dr. Andrés Marie [facility] Brooks Go MD ECG ORDERABLES Final Resu lt Performing Organization Address City/[facility]/ZIP Co de Phone Number [facility] from Last 3 Months Insurance MEDICARE [facility] [address] [place] [address] [facility] SUPPLEMENT MEDICARE MEDICARE GE M[employer] SUPPLEMENT [place] [id number] Advance Directives For more information, please contact: [phone] * Full Code (Latest Code Status on File) Date Activated Date Inactivated Comments 11/15/2024 8:30 PM 11/16/2024 10:26 PM * Full Code Date Activated Date Inactivated Comments 11/15/2024 7:25 PM 11/15/2024 8:30 PM * Full Code Date Activated Date Inactivated Comments 06/11/2023 11:22 AM 06/15/2023 6:11 PM * Full Code Date Activated Date Inactivated Comments 06/07/2023 7:35 PM 06/11/2023 11:22 AM * Full Code Date Activated Date Inactivated Comments 03/07/2023 12:11 AM 03/09/2023 7:04 PM Care Teams International Bank Manager Relationship Specialty Start Date End Date Ry Veronica MD PCP - General Family Practice 06/07/23 Shola Mccray Jr., MD [address] [place] [address] Consulting Physician Cardiovascular Disease 02/03/22 Miscellaneous, Not In File 02/03/22 [place] [address] [address] [facility] [address] [address] Surgeon Cardiothoracic Surgery 06/15/23
--- OUTSIDE RECORDS SUMMARY | 2025-02-12 14:36 | XMS_ITS | Referral Summary ---
Author Organization [facility] Physician Office Building [id number] [place] [id number] Care Team Providers Care Team Otr Truck Driver Name Role Phone Mahendra Henderson MD, Shola Bryson Unavailable [phone] Miscellaneous, Not In File Unavailable Unava Ry Cevallos MD Primary Care Provider [phone] Matthew Harvey MD Unavailable [phone] Encounters Date Type Department Care Team Description 11/15/2024 3:41 PM PROCESS MACHINE OPERATOR - 11/16/2024 6:00 PM [facility] Hospital Encounter [facility] [address] [place] [address] Brooks Go MD Brother, Michele, MD Rivera, Samantha, MD Acute chest pain (Primary Dx) Discharge Disposition: Discharge to home or self care from Last 3 Months Allergies Active Allergy Reactions Criticality Noted Date Comments Quinine Unknown long time ago , but hospitalized x2 Medications levothyroxine (SYNTHROID, LEVOTHROID) 50 mcg tablet Take 1 tablet (50 mcg total) 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 He should be working on zbrzs-bi-iiekrc exercises. Warm soaks may be helpful specially with colder weather. Assessment & Plan (10/16/2019 5:41 PM PROCESS MACHINE OPERATOR): The patient has a nondisplaced fracture of [...] humerus Assessment & Plan (12/06/2017 11:20 AM PROCESS MACHINE OPERATOR): Patient no longer requires cast immobilization. Patient was advised warm soaks and stretching should be performed on a regular basis. He would like physical therapy was advised to call would be happy to arrange for him Hammertoe of left foot 11/15/2017 Left supracondylar humerus f racture, closed, initial encounter 11/08/2017 Assessment & Plan (11/08/2017 1:17 PM PROCESS MACHINE OPERATOR): Patient was placed in a long-arm cast. His knee surgery for later this month was postponed as he will need to be able to weightbear through the left arm. He is return the office in four weeks for cast removal and follow-up films Arthritis of left knee 09/14/2017 Assessment & Plan (10/23/2020 4:04 PM PROCESS MACHINE OPERATOR): Patient is at a point where he [...] to be evaluated this week by his chlorine cell tender and will get back to us on [...] shoulder Primary osteoarthritis of left shoulder 06/08/20 Assessment & Plan (06/08/2017 10:41 AM CDT): [...] Resolved Date SOB (shortness of breath) 03/22/2012 Immunizations Immunization Administration Dates Next Due Influenza, Unspecified 08/25/2020 Td, adsorbed 03/11/2019 Social History Tobacco Use Types Packs/Day Years [...] than three times a week 06/09/2023 Attends [employer] Not on file 06/09 Active Member [...] when you are drinking? 1 or 2 3 Q3: How often do you have si [...] staff should administer the PHQ-9) 0 03/07/2023 [facility] - Occupational Stress Questionnaire Answer Date Recorded [...] place to sleep or slept in a mcfp (including now)? 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 Not on file Not on file Not on file Last Filed Vital Signs Vital Sign Reading Time Taken Comments Blood Pressure 145/83 11/16/2024 11:07 AM PROCESS MACHINE OPERATOR Pulse 62 11/16/2024 11:07 AM PROCESS MACHINE OPERATOR Temperature 36.8 C (98.2 F) 11/16/2024 11:07 AM PROCESS MACHINE OPERATOR Respiratory Rate 18 11/16/2024 11:07 AM PROCESS MACHINE OPERATOR Oxygen Saturation 94% 11/16/2024 11:07 AM PROCESS MACHINE OPERATOR Inhaled Oxygen Concentration - - Weight 83.9 kg (185 lb) 11/15/2024 10:30 PM PROCESS MACHINE OPERATOR Height 175.3 cm (5' 9 ) 11/15/2024 10:30 PM PROCESS MACHINE OPERATOR Body Mass Index 27.32 11/15/2024 10:30 PM PROCESS MACHINE OPERATOR Plan of Treatment Not on file Medical Devices Implanted Type Area Receiving Specialist Device Identifier Shelf Expiration Date Model / Serial / Lot Tierra Jin[employer] Inc [id number] Persona 14mm 30+ Mm Knee Tibia Taper Extension Stem - [id number] Implanted:Qty: 1 on 08/28/2020 by Gualberto New MD at [facility] Tierra Biomet Inc [id number] 06/22/2030 [id number] / / [id number] Ubiquiti Networks [id number] Surelock 2.2mm Flexible Quality Assurance Supervisor Trim Preload 2 [place] Suture Uhmwpe - [id number] Implanted:Qty: 3 on 08/28/2020 by Gualberto New MD at [facility] Left: Patella Tierra Biomet Inc 05/19/2022 [id number] / / [id number] Tierra Biomet Inc [id number] 2.9mm Drill [place] Suture - [id number] Implanted:Qty: 1 on 08/28/2020 by Gualberto New MD at [facility] Left: Knee Tierra Biomet Inc 06/06/2021 [id number] / / [id number] Ubiquiti Networks Cm-9329 Quattro Force Fiber Od2.9 Mm 2 Cannula Preload Unique Eyelet Design Glenoid [place] Suture Peek Shoulder Labral Repair System - [id number] Implanted:Qty: 1 on 08/28/2020 by Gualberto New MD at [facility] Left: Knee Tierra Biomet Inc 03/28/2021 CM-9329 / / [id number] XMarket Medical Inc [id number] Palacos R High Viscosity Cement 40gm Bone Green - [id number] Implanted:Qty: 2 on 08/28/2020 by [facility] [id number] 02/26/2023 [id number] / / [id number] Tierra Us Inc [id number] Persona 38mm Knee Component Patellar All Poly Sterile - [id number] Implanted:Qty: 1 on 08/28/2020 by Gualberto New MD at [facility] Left: Knee Tierra Biomet Inc [id number] 04/28/2026 [id number] / / [id number] Tierra Us Inc [id number] Persona Cemented Stem Knee Left 5d H Baseplate Tibial Tivanium - [id number] Implanted:Qty: 1 on 08/28/2020 by Gualberto New MD at [facility] Left: Knee Tierra Biomet Inc [id number] 10/28/2029 [id number] / / [id number] Tierra Us Inc [id number] Persona Cruciate Retain Cemented Knee Left 8 Standard Component - [id number] Implanted:Qty: 1 on 08/28/2020 by Gualberto New MD at [facility] Left: Knee Tierra Biomet Inc [id number] 05/28/2029 [id number] / / [id number] Yieldr Medical Alacritech Cm-[id number] Surelock 2.2mm Flexible Quality Assurance Supervisor Trim Preload 2 [place] Suture Uhmwpe - [id number] Implanted:Qty: 1 on 08/28/2020 by Gualberto New MD at [facility] Left: Patella Tierra Bi[employer] Inc 05/19/2022 CM-[id number] / / [id number] Tierra Biomet Inc [id number] Persona 13mm Cruciate Retain Knee 8-11 Insert Articular Vivacit-E Latex Free - [id number] Implanted:Qty: 1 on 08/28/2020 by Gualberto New MD at [facility] Tierra Bi[employer] Inc [id number] 01/27/2024 [id number] / / [id number] Yieldr Medical Alacritech Cm-9129 Quattro Link 2.9mm Knotless [place] Suture Sterile Shoulder System - [id number] Implanted:Qty: 1 on 08/28/2020 by Gualberto New MD at [facility] Left: Knee Tierra Biomet Inc 07/24/2024 CM-9129 / / [id number] Lifenet Fatb Flexigraft 160mm Frozen Block Graft Soft Tissue Achilles Tendon - [id number] Implanted:Qty: 1 on 08/28/2020 by Gualberto New MD at [facility] Left: Patella Lifenet 10/17/2022 FATB / / [id number] Biotronik Inc 221111 Promri Solia S 60cm Lead Pacing Steroid Eluting - [id number] - [id number] Implanted:Qty: 1 on 02/02/2022 by Shola Mccary Jr., MD at [facility] Left: Chest Biotronik Inc 11/28/2023 [id number] / [id number] / Biotronik Inc [id number] Solia S 53cm Steroid Elute Bipolar Active Fixation Endocardial - [id number] - [id number] Implanted:Qty: 1 on 02/02/2022 by Shola Mccray Jr., MD at [facility] Left: Chest Biotronik Inc 11/28/2023 [id number] / [id number] / Biotronik Inc [id number] Edora Promri 12s38k9.5mm Dual Chamber Rate Adaptive Unipolar Bipolar - [id number] - [id number] Implanted:Qty: 1 on 02/02/2022 by Shola Mccray Jr., MD at [facility] Left: Chest Biotronik Inc 05/28/2023 [id number] / [id number] / Jaquez Lifesciences Nadia 3 Commander Jaquez 26mm Transcatheter Ultra Low Profile [id number] - [id number] - [id number] Implanted:Qty: 1 on 07/06/2023 by Kadeem Sen MD at [facility] Jaquez Lifesciences 03/09/2026 [id number] / [id number] / Garcia Vascular Device Clsr Perclose Prostyle Sut-Mediatd Closure-Repair Sys 33017-21 - [id number] Implanted:Qty: 1 on 07/06/2023 by Kadeem Sen MD at [facility] [employer] 03/28/2025 [id number] / / [id number] Garcia Vascular Device Clsr Perclose Prostyle Sut-Mediatd Closure-Repair Sys 69334-39 - [id number] Implanted:Qty: 1 on 07/06/2023 by Kadeem Sen MD at [facility] Vascular 03/28/2025 85535-79 / / [id number] Garcia Vascular Device Clsr Perclose Prostyle Sut-Mediatd Closure-Repair Sys 61032-69 - [id number] Implanted:Qty: 1 on 07/06/2023 by Kadeem Sen MD at [facility] [employer] 02/26/2025 66939-25 / / [id number] Garcia Vascular Device Clsr Perclose Prostyle Sut-Mediatd Closure-Repair Sys 24243-91 - [id number] Implanted:Qty: 1 on 07/06/2023 by Kadeem Sen MD at [facility] Vascular 03/28/2025 92194-87 / [id number] Procedures Procedure Name Priority Date/Time Associated Diagnosis Comments TROPONIN T HIGH-SENSITIVITY 6-HOUR Timed 11/15/2024 10:39 PM PROCESS MACHINE OPERATOR TROPONIN T HIGH-SENSITIVITY 4-HR Timed 11/15/2024 7:51 PM PROCESS MACHINE OPERATOR TROPONIN T HIGH-SENSITIVITY 2-HOUR Timed 11/15/2024 6:10 PM PROCESS MACHINE OPERATOR XR CHEST 1 VIEW ED 11/15/2024 4:20 PM PROCESS MACHINE OPERATOR EGFR STAT 11/15/2024 4:00 PM PROCESS MACHINE OPERATOR DIFFERENTIAL AUTO STAT 11/15/2024 4:0 0 PM PROCESS MACHINE OPERATOR TROPONIN T HIGH-SENSITIVITY SERIES (BASELINE, 2HR, 4HR, 6HR) STAT 11/15/2024 4:00 PM PROCESS MACHINE OPERATOR COMPREHENSIVE METABOLIC PANEL STAT 11/15/2024 4:00 PM PROCESS MACHINE OPERATOR CBC WITH AUTO DIFFERENTIAL STAT 11/15/2024 4:00 PM PROCESS MACHINE OPERATOR ECG 12-LEAD STAT 11/15/2024 3:46 PM PROCESS MACHINE OPERATOR from Last 3 Months Results * Troponin T high-sensitivity 6-hour (11/15/2024 10:39 PM PROCESS MACHINE OPERATOR) Trop T hs 17 <=22 ng/L Comment: Interpretive Data For further hscTnT resources including the diagnostic algorithm and an aid in interpretation, copy and paste this link: [email or web address]://nrl.[email or web address]/show/hsTrop Current Interpretive Data last revised 2020. Trop T hs delta -1 ng/L CERNER CH Trop T hs interp Insignificant CERNER CH Blood 11/15/2024 10:3 9 PM PROCESS MACHINE OPERATOR 11/15/2024 10:43 PM PROCESS MACHINE OPERATOR Alisha Tiwari MD LAB BLOOD ORDERABLES Fi nal Result Performing Organization Address [facility] Co de Phone Number [facility] [address] [facility] [place] [address] * Troponin T high-sensitivity 4-hour (11/15/2024 7:51 PM PROCESS MACHINE OPERATOR) Trop T hs 16 <=22 ng/L Comment: Interpretive Data For further hscTnT resources including the diagnostic algorithm and an aid in interpretation, copy and paste this link: [email or web address]://nrl.[email or web address]/show/hsTrop Current Interpretive Data last revised 2020. Trop T hs delta -2 ng/L CERNER CH Trop T hs interp Insignificant CERNER CH Blood 11/15/2024 7:51 PM PROCESS MACHINE OPERATOR 11/15/2024 7:56 PM PROCESS MACHINE OPERATOR Alisha Tiwari MD LAB BLOOD ORDERABLES Fi nal Result Performing Organization Address City/[facility]/ZIP Co de Phone Number [facility] [address] [facility] [place] [address] * Troponin T high-sensitivity 2-hour (11/15/2024 6:10 PM PROCESS MACHINE OPERATOR) Trop T hs 17 <=22 ng/L Comment: Interpretive Data For further hscTnT resources including the diagnostic algorithm and an aid in interpretation, copy and paste this link: https://nrl.testcatalog.org/show/hsTrop Current Interpretive Data last revised 2020. Trop T hs delta -1 ng/L CERNER CH Trop T hs interp Insignificant CERNER CH Blood 11/15/2024 6:10 PM PROCESS MACHINE OPERATOR 11/15/2024 6:13 PM PROCESS MACHINE OPERATOR us Alisha Tiwari MD LAB BLOOD ORDERABLES Fi nal Result [facility] [id number] Department [place] [address] * XR Chest 1 Vw Portable (if patient condition/safety warrant portable) (11/15/2024 4:20 PM PROCESS MACHINE OPERATOR) Anatomical Region Laterality Modality Body, Chest N/A Computed Radiogr aphy 11/15/2024 4:24 PM PROCESS MACHINE OPERATOR Impressions 11/15/2024 4:24 PM PROCESS MACHINE OPERATOR FINDINGS/IMPRESSION: Pacer leads are intact. No pneumothorax or pleural effusion. Cardiomediastinal silhouette within normal limits. Poststernotomy changes. No consolidation. Electronically signed by: Fco Reagan II, D.O. Narrative 11/15/2024 4:24 PM PROCESS MACHINE OPERATOR EXAMINATION: XR CHEST 1 VIEW DATE: 11/15/2024 4:05 PM INDICATION: Chest pain COMPARISON: 03/17/2024. Procedure Note Fco Reagan II, DO - 11/15/2024 EXAMINATION: XR CHEST 1 VIEW DATE: 11/15/2024 4:05 PM INDICATION: Chest pain COMPARISON: 03/17/2024. IMPRESSION: FINDINGS/IMPRESSION: Pacer leads are intact. No pneumothorax or pleural effusion. Cardiomediastinal silhouette within normal limits. Poststernotomy changes. No consolidation. Electronically signed by: Fco Reagan II, D.O. us Brooks Go MD IMG XR PROCEDURES Final Re sult * Troponin T high-sensitivity series (baseline, 2hr, 4hr, 6hr) (11/15/2024 4:00 PM PROCESS MACHINE OPERATOR) Trop T hs 18 <=22 ng/L Comment: Interpretive Data For further hscTnT resources including the diagnostic algorithm and an aid in interpretation, copy and paste this link: https://nrl.testcatalog.org/show/hsTrop Current Interpretive Data last revised 2020. Blood 11/15/2024 4:00 PM PROCESS MACHINE OPERATOR 11/15/2024 4:00 PM PROCESS MACHINE OPERATOR Brooks Go MD LAB BLOOD ORDERABLES Final Result [facility] [id number] Department [place] [address] * eGFR (11/15/2024 4:00 PM PROCESS MACHINE OPERATOR) eGFR 85 >=60 mL/min/1. 73 m2 Comment: [...] last reviewed 2021. Blood 11/15/2024 4:00 PM PROCESS MACHINE OPERATOR 11/15/2024 4:01 PM PROCESS MACHINE OPERATOR us Brooks Go MD LAB BLOOD ORDERABLES Final Result [facility] [address] Department [place] [address] * Differential, auto (11/15/2024 4:00 PM PROCESS MACHINE OPERATOR) Neutrophil abs 2.6 1.5 - 6.5 K/cumm Imm gran abs 0.0 0.0 - 0.1 K/cumm [facility] Lymphocyte abs 1.7 0.8 - 3.3 K/cumm [facility] Monocyte abs 0.5 0.2 - 0.8 K/cumm [facility] Eosinophil abs 0.2 0.0 - 0.5 K/cumm [facility] Basophil abs 0.0 0.0 - 0.1 K/cumm [facility] Neutrophil pct 51.3 % [facility] Comment: Interpretive Data Percent cell count reference ranges are not reported, since discordance with absolute values may lead to misinterpretation of CBC data. Current Interpretive Data was last revised on 2018. Imm gran pct 0.2 % [facility] Comment: Interpretive Data Percent cell count reference ranges are not reported, since discordance with absolute values may lead to misinterpretation of CBC data. Current Interpretive Data was last revised on 2018. Lymphocyte pct 33.9 % [facility] Comment: Interpretive Data Percent cell count reference ranges are not reported, since discordance with absolute values may lead to misinterpretation of CBC data. Current Interpretive Data was last revised on 2018. Monocyte pct 9.3 % [facility] Comment: Interpretive Data Percent cell count reference ranges are not reported, since discordance with absolute values may lead to misinterpretation of CBC data. Current Interpretive Data was last revised on 2018. Eosinophil pct 4.5 % [facility] Comment: Interpretive Data Percent cell count reference ranges are not reported, since discordance with absolute values may lead to misinterpretation of CBC data. Current Interpretive Data was last revised on 2018. Basophil pct 0.8 % [facility] Comment: Interpretive Data Percent cell count reference ranges are not reported, since discordance with absolute values may lead to misinterpretation of CBC data. Current Interpretive Data was last revised on 2018. Blood 11/15/2024 4:00 PM PROCESS MACHINE OPERATOR 11/15/2024 4:00 PM PROCESS MACHINE OPERATOR Brooks Go MD LAB BLOOD ORDERABLES Final Result Performing Organization Address [facility] Co de Phone Number [facility] [address] Department [place] [place] [address] * CBC with auto differential (11/15/2024 4:00 PM PROCESS MACHINE OPERATOR) WBC 5.1 3.8 - 9.9 K/cumm Hgb 14.5 13.0 - 17.5 g/dL CERNER CH Hct 43.4 38.9 - 50.3 % CERNER CH Plt 165 150 - 400 K/cumm CERNER CH MPV 9.7 9.1 - 12.3 fL CERNER CH RBC 4.64 4.30 - 5.80 M/cumm CERNER [...] blood specimen / Unknown 11/15/2024 4:00 PM PROCESS MACHINE OPERATOR 11/15/2024 4:00 PM PROCESS MACHINE OPERATOR Brooks Go MD LAB BLOOD ORDERABLES Final Result Performing Organization Address City/[facility]/ZIP Co de Phone Number [facility] [address] Department [place] [place] [address] * Comprehensive metabolic panel (11/15/2024 4:00 PM PROCESS MACHINE OPERATOR) Sodium 144 135 - 145 mmol/L Potassium, [...] pl 7.4 6.5 - 8.5 g/dL CERNER Albumin 4.3 3.5 - 5.0 g/dL CERNER CH Alk phos 90 40 - 130 Units/L CERNER CH ALT 28 7 - 55 Units/L CERNER CH AST 35 10 - 50 Units/L CERNER CH Blood 11/15/2024 4:00 PM PROCESS MACHINE OPERATOR 11/15/2024 4:00 PM PROCESS MACHINE OPERATOR us Brooks Go MD LAB BLOOD ORDERABLES Final Result Performing Organization Address City/State/[facility] Co dc Phone Number [facility] [address] Department [place] [address] * ECG 12 lead (11/15/2024 3:46 PM PROCESS MACHINE OPERATOR) 11/15/2024 3:46 PM PROCESS MACHINE OPERATOR Narrative [facility] - 11/15/2024 6:03 PM PROCESS MACHINE OPERATOR Vent Rate: 59 bpm RR Interval: 1005 msec NM Interval: 0 msec QRS Duration: 197 msec QT Interval: 526 msec QTC Interval: 526 msec P-R-T [place]: 0 - -72 - 89 degrees IMPRESSION: ELECTRONIC VENTRICULAR PACEMAKER Electronically Signed By: Dr. Andrés Marie [facility] us Brooks Go MD ECG ORDERABLES Final Resu lt [facility] from Last 3 Months Insurance MEDICARE [facility] SUPPLEMENT MEDICARE [facility] [place] [id number] MEDICARE MEDICARE [facility] [place] [id number] Advance Directives For more information, please contact: [phone] * Full Code (Latest Code Status on [...] 12:11 AM 03/09/2023 7:04 PM Care Teams Team Otr Truck Driver Relationship Specialty Start Date End Date Ry Veronica MD PCP - General Family Practice 06/07/23 Shola Mccray Jr., MD [address] [place] [address] Consulting Physician Cardiovascular Disease 02/03/22 Miscellaneous, Not In File 02/03/22 [place] [id number] [place] [address] Surgeon Cardiothoracic Surgery 06/15/23
== END 2025-02-12 12:13 | disposition home or self-care (01) ==
PROVIDERS: PCP Nurse Practitioner Family; Visit Provider Nurse Practitioner Family
DX: R91.8 Other nonspecific abnormal finding of lung field (principal)
CPT/HCPCS: 71250

== ENCOUNTER 2025-02-22 11:18 | Outpatient (CLI) | payer MEDICARE, SELFPAY ==
--- NOTE | ~2025-02-22 | US_ITS ---
EXAMINATION: US carotid duplex BI DATE: 02/22/2025 13:34 INDICATION: Carotid artery stenosis TECHNIQUE: Grayscale, color Doppler, and pulsed Doppler images of the cervical carotid arteries were obtained. The degree of vessel stenosis is placed in one of the following categories: normal, <50%, 5 0-69%, >=70% but less than near-occlusion, near-occlusion, or total occlusion. Note that percent sten osis relative to normal distal artery lumen diameter is indirectly measured from velocity measurement s as described by Beka, et al. Radiology 2003; 229:340-346. Notes: Normal: Peak systolic velocity <125 centimeters/sec and no plaque <50%. Peak systolic velocity <125 ( EDV <40; ICA/CCA PSV ratio <2.0; used these factors only a tandem lesions or low cardiac output or co ntralateral disease) 50-69 %: PSV 125-230 (EDV 40-100; ratio 2-4) >= 70% but less than near occlusion: PSV greater than 230 (EDV > 100; ratio> 4.0) Near Occlusion: PSV that is variable; markedly narrowed lumen Occlusion: Absent flow on color/spectral Doppler and no lumen on avina scale. COMPARISON: None. FINDINGS: RIGHT: The right common carotid artery (CCA) peak systolic velocity (PSV) is 66 cm/s. The right internal car otid artery (ICA) PSV is 130 cm/s. The right ICA end-diastolic velocity (EDV) is due to cm/s. The rig ht ICA/CCA PSV ratio is 30. The external carotid artery (ECA) PSV is 76 cm/s. There is antegrade flow in the right vertebral artery. LEFT: The left CCA PSV is 74 cm/s. The left ICA PSV is 81 cm/s. The left ICA EDV is 17 cm/s. The left ICA/C CA PSV ratio is 1.1. The ECA PSV is 155 cm/s. There is antegrade flow in the left vertebral artery. IMPRESSION: 1. 50-69% stenosis in the right internal carotid artery by sonographic criteria. 2. Less than 50% stenosis in the left internal carotid artery by sonographic criteria. Reviewed, dictated and finalized at location A. IMPRESSION: 1. 50-69% stenosis in the right internal carotid artery by sonographic criteria . 2. Less than 50% stenosis in the left internal carotid artery by sonographic cr iteria.
--- OUTSIDE RECORDS SUMMARY | 2025-02-22 12:48 | XMS_ITS | Encounter Summary ---
Author Organization [facility] Address [facility] [place] [address] Care Team Providers Care Senior Ui Designer Name Role Phone Ry Veronica MD Primary Care Provider [phone] Reason for Referral * Imaging (Routine) - Closed Specialty Diagnoses / Procedures Referred By Contac t Referred To Contact RADIOLOGY Diagnoses Mild cognitive impairment of uncertain or unknown etiology Polyneuropathy, unspecified Procedures MRI BRAIN WO CON Margaux Mclain MD [address] [facility] [address] [place] [address] Phone: tel: fax: Referral ID Status Reason Start Date Expiration Date Visits Re quested Visits Authorized [id number] Closed 01/24/2025 01/24/2026 1 1 Encounter Details Date Type Department Care Team (Latest Contact Info) Description 02/20/2025 12:34 PM CDT - 02/20/2025 11:59 PM CDT Hospital Encounter [facility] Diagnostic Imaging [facility] [place] [address] [place] [address] 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 Gender Identity Not on file Sexual Orientation Not on file documented as of this encounter Plan of Treatment Not on file documented as of this encounter Procedures Procedure Name Priority Date/Time Associated Diagnosis Comments MRI BRAIN WO CON Routine 02/20/2025 2:10 PM CDT Mild cognitive impairment of uncertain or unknown etiology Polyneuropathy, unspecified XR CHEST PA OR AP 1V STAT 02/20/2025 12:43 PM CDT S/P placement of cardiac pacemaker documented in this encounter Results * MRI BRAIN WO CON (02/20/2025 2:10 PM CDT) Anatomical Region Laterality Modality Head Magnetic Resonan ce 02/21/2025 7:17 AM CDT Impressions 02/21/2025 7:23 AM CDT IMPRESSION: 1. No acute intracranial abnormality. 2. 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 3. 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 4. Diminutive intracranial right vertebral artery, possibly terminating as the right posterior inferior cerebellar artery, with high-grade stenosis or occlusion of the right vertebral artery at or proximal to the skull base less likely, but not excluded. 5. Suspect origin of the right posterior cerebral artery from the supraclinoid right internal carotid artery. Referred By: Interpreted By: Courtney Bhatia MD, 02/21/2025 7:17 AM Narrative 02/21/2025 7:23 AM CDT [address] [address] EXAMINATION: MRI BRAIN WO CONTRAST. Multiplanar, multisequence MR imaging of the brain was performed without intravenous contrast. INDICATION: Polyneuropathy. COMPARISON: None. FINDINGS: No acute ischemia, infarct, or intracranial hemorrhage. No mass effect, midline shift, or acute osseous abnormality. Generalized age appropriate atrophy. The sulci are prominent but within normal limits for age. Ventricles are normal for age. No abnormal extra-axial fluid collections. Vcbu-wz-ehjgqvfv nonspecific confluent and nodular foci of FLAIR and T2 hyperintensity in bilateral cerebral white matter without edema or mass effect, likely nonspecific chronic white matter microvascular disease. 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 Diminutive intracranial right vertebral artery seen only to C1 level, possibly terminating as the right posterior inferior cerebellar artery, with high-grade stenosis or occlusion of the right vertebral artery at or proximal to the skull base less likely, but not excluded. Intracranial left vertebral artery is dominant. 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 Appropriate flow-voids are seen in the major vessels of the [place]. 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 Mild chronic mucosal thickening in bilateral ethmoid air cells. No significant paranasal sinus or mastoid air cell disease. Visualized orbits are unremarkable. Procedure Note Courtney Bhatia MD - 02/21/2025 [place] [address] EXAMINATION: MRI BRAIN WO CONTRAST. Multiplanar, multisequence MR imagingof the brain was performed without intravenous contrast. INDICATION: Polyneuropathy. COMPARISON: None. FINDINGS: No acute ischemia, infarct, or intracranial hemorrhage. No masseffect, midline shift, or acute osseous abnormality. Generalized ageappropriate atrophy. The sulci are prominent but within normal limits forage. Ventricles are normal for age. No abnormal extra-axial fluidcollections. Ijbo-qd-msdzzhnd nonspecific confluent and nodular foci ofFLAIR and T2 hyperintensity in bilateral cerebral white matter withoutedema or mass effect, likely nonspecific chronic white mattermicrovascular disease. Tiny old lacunar infarcts laterally in the rightcerebellum. Diminutive intracranial right vertebral artery seen only toC1 level, possibly terminating as the right posterior inferior cerebellarartery, with high-grade stenosis or occlusion of the right vertebralartery at or proximal to the skull base less likely, but not excluded.Intracranial left vertebral artery is dominant. Suspect origin ofthe right posterior cerebral artery from the supraclinoid right internalcarotid artery was difficult hypoplasia of right P1 segment of the basilartip, a developmental variant. Appropriate flow-voids are seen in themajor vessels of the [place]. Developmental aplasia of the leftfrontal sinus. Mild chronic mucosal thickening in bilateral ethmoid aircells. No significant paranasal sinus or mastoid air cell disease.Visualized orbits are unremarkable. IMPRESSION: 1. No acute intracranial abnormality. 2. Generalized age-appropriate atrophy with tenr-gk-obpebeod nonspecificchronic cerebral white matter microvascular disease in bilateral cerebralhemispheres. 3. 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 4. Diminutive intracranial right vertebral artery, possibly terminatingas the right posterior inferior cerebellar artery, with high-gradestenosis or occlusion of the right vertebral artery at or proximal to theskull base less likely, but not excluded. 5. Suspect origin of the right posterior cerebral artery from thesupraclinoid right internal carotid artery. 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 No acute findings. Ordered By: ANABELLA MCLAIN Interpreted By: Ga Fraser MD, 02/20/2025 12:45 PM Narrative 02/20/2025 12:47 PM CDT [address] [address] Examination: Chest x-ray 1 view Exam date/time: 02/20/2025 12:37 PM Reason For Exam: check pacemaker and leads prior to MRI Comparison: None available. Technique: Upright AP view of the chest demonstrated. 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 Left subclavian approach dual lead pacemaker device with distal lead tips projecting over the right atrium and right ventricle. No evidence of lead discontinuity or retained leads. Cardiomediastinal silhouette is within normal limits. Atherosclerotic calcifications of the thoracic aorta. No pulmonary vascular congestion. No pleural effusions or pneumothorax identified. No focal pulmonary consolidation. Procedure Note Ga Fraser MD - 02/20/[address] [address] Examination: Chest x-ray 1 view Exam date/time: 02/20/2025 12:37 PM Reason For Exam: check pacemaker and leads prior to MRI Comparison: None available. Technique: Upright AP view of the chest demonstrated. 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Left subclavian approach dual lead pacemaker device with distal lead tipsprojecting over the right atrium and right ventricle. No evidence of leaddiscontinuity or retained leads. Cardiomediastinal silhouette is withinnormal limits. Atherosclerotic calcifications of the thoracic aorta. Nopulmonary vascular congestion. No pleural effusions or pneumothoraxidentified. No focal pulmonary consolidation. 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 No acute findings. Ordered By: ANABELLA MCLAIN Interpreted By: Ga Fraser MD, 02/20/2025 12:45 PM Anabella Mclain MD GENERAL IMAGING Final Result documented in this encounter Visit Diagnoses Diagnosis S/P placement of cardiac pacemaker Cardiac pacemaker in situ Mild cognitive impairment of uncertain or unknown etiology Polyneuropathy, unspecified documented in this encounter Care Teams Senior Ui Designer Relationship Specialty Start Date End Date Ry Veronica MD [address] [place] [address] PCP - General FAMILY PRACTICE 02/20/25 documented as of this encounter
--- OUTSIDE RECORDS SUMMARY | 2025-02-22 12:48 | XMS_ITS | Clinical Summary ---
Author Organization [facility] Address [facility] [place] [address] Care Team Providers Care Metaphysics Teacher Name Role Phone Ry Veronica MD Primary Care Provider [phone] Encounters Date Type Department Care Team Description 02/20/2025 12:34 PM CDT - 02/20/2025 11:59 PM CDT Hospital Encounter [facility] Diagnostic Imaging [address] [place], [place] [id number] Anabella Mclain MD Arrived Discharge Disposition: Home or Self Care (Routine Discharge) 02/20/2025 Travel from Last 3 Months Social History Tobacco Use Types Packs/Day Years Used Date Smoking Tobacco: Never Assessed Sex and Gender Information Value Date Recorded Sex Assigned at Male 02/20/2025 12:29 PM CDT 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 Gender Identity Not on file Sexual Orientation Not on file Plan of Treatment Health Maintenance Due Date Last Done Comments Annual Medicare Wellness Visit 2005 Pneumococcal Vaccine: 65+ Years (1 of 1 - PCV) 2005 DTaP, Tdap and Td Vaccines (1 - Tdap) 03/12/2019 03/11/2019 PHQ-2 (Physician [place]) 11/29/2024 COVID-19 Vaccine ( season) 2025 08/08/2024, 08/31/2023, 08/13/2022, Additional history exists RSV Immunization or 60+ Years Completed 10/02/2023 Zoster Vaccines Completed 11/18/2023, 09/17/2023 Influenza Adult Completed 08/08/2024, 07/30, 08/05/2021, Additional history exists Meningococcal B Vaccine Aged Out No l onger eligible based on patient's age to complete this topic Meningococcal Vaccine Aged Out No darren mala eligible based on patient's age to complete this topic RSV Immunizations Under 20 Months Aged Out No longer eligible based on patient's age to complete this topic Medical Devices Implanted Type Area Plumbing Contractor Device Identifier Shelf Expiration Date Model / Serial / Lot Ra Lead Implant-02/03/20 Implanted:Qty: 1 on 02/02/2022 Lead Implant Right: Atrium [employer] SOLIA S 53 MODEL [id number] / [id number] / Rv Lead Implant-02/03/20 Implanted:Qty: 1 on 02/02/2022 Lead Implant Right: Ventricle [employer] SOLIA S 60 MODEL [id number] / [id number] / Pacemaker-2021 Implanted:Qty: 1 on 02/02/2022 Pacemaker Chest BI[employer]IK EDORA 8 DR-T MODE [id number] / [id number] / Description:MR CONDITIONAL A T 1.5 T OR 3 T, MAX SPATIAL GRADIENT FIELD OF 3000 GAUSS/CM OR LESS, SLEW RATE 200 T/M/S, MAX WHOLE BODY IRIS OF 2 W/KG OR LESS, HEAD IRIS 3.2 W/KG OR LESS Procedures Procedure Name Priority Date/Time Associated Diagnosis Comments MRI BRAIN WO CON Routine 02/20/2025 2:10 PM CDT Mild cognitive impairment of uncertain or unknown etiology Polyneuropathy, unspecified XR CHEST PA OR AP 1V STAT 02/20/2025 12:43 PM CDT S/P placement of cardiac pacemaker from Last 3 Months Results * MRI BRAIN WO CON (02/20/2025 2:10 PM CDT) Anatomical Region Laterality Modality Head Magnetic Resonan ce 02/21/2025 7:17 AM CDT Impressions 02/21/2025 7:23 AM CDT IMPRESSION: 1. No acute intracranial abnormality. 2. 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 Multiplanar, multisequence MR imaging of the brain was performed without intravenous contrast. INDICATION: Polyneuropathy. COMPARISON: None. FINDINGS: No acute ischemia, infarct, or intracranial hemorrhage. No mass effect, midline shift, or acute osseous abnormality. Generalized age appropriate atrophy. The sulci are prominent but within normal limits for age. Ventricles are normal for age. No abnormal extra-axial fluid collections. Axwf-hz-zfzxxyqd nonspecific confluent and nodular foci of FLAIR [...] seen in the major vessels of the [place]. 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 Mild chronic mucosal thickening in bilateral ethmoid air cells. No significant paranasal sinus or mastoid air cell disease. Visualized orbits are unremarkable. Procedure Note Courtney Bhatia MD - 02/21/2025 [facility] [address] [place], [place] [address] EXAMINATION: MRI BRAIN WO CONTRAST. Multiplanar, multisequence MR imagingof the brain was performed without intravenous contrast. INDICATION: Polyneuropathy. COMPARISON: None. FINDINGS: No acute ischemia, infarct, or intracranial hemorrhage. No masseffect, midline shift, or acute osseous abnormality. Generalized ageappropriate atrophy. The sulci are prominent but within normal limits forage. Ventricles are normal for age. No abnormal extra-axial fluidcollections. Momv-xs-khfcqxxk nonspecific confluent and nodular foci ofFLAIR and [...] are seen in themajor vessels of the [place]. Developmental aplasia of the leftfrontal sinus. Mild chronic mucosal thickening in bilateral ethmoid aircells. No significant paranasal sinus or mastoid air cell disease.Visualized orbits are unremarkable. IMPRESSION: 1. No acute intracranial abnormality. 2. Generalized age-appropriate atrophy with ugnm-vn-aocdkivz nonspecificchronic cerebral white matter microvascular disease in [...] By: Courtney Bhatia MD, 02/21/2025 7:17 AM us Margaux Mclain MD MRI Final Result * [...] 12:45 PM Narrative 02/20/2025 12:47 PM CDT [place] [address] Examination: Chest x-ray 1 view Exam date/time: [...] Procedure Note Ga Fraser MD - 02/20/2025 [place] [address] Examination: Chest x-ray 1 view Exam date/time: [...] Anabella Mclain MD GENERAL IMAGING Final Result from Last 3 Months Insurance MEDICARE [facility] Care Teams Metaphysics Teacher Relationship Specialty Start Date End Date Ry Veronica MD [address] [place] [id number] PCP - General FAMILY PRACTICE 02/20/25
--- OUTSIDE RECORDS SUMMARY | 2025-02-22 12:48 | XMS_ITS | CONTINUITY OF CARE DOCUMENT ---
Author Name chante, chante Address Unknown Organization [facility] Address [address] [address] [place] [address] Phone [phone] Care Team Providers Care Hereditary Cancer Program Coordinator Name Role Phone Mahendra WASHINGTON, Shola Unavailable SAM SÁNCHEZ MD Unavailable [phone] SAM SÁNCHEZ MD Unavailable [phone] PROBLEMS Condition Status Date Provider Notes S/P [...] In-person encounter Office Visit Shola Mccray MD [facility] - In-person encounter Office Visit Shola Mccray MD [facility] - In-person encounter Office Visit Shola Mccray MD [facility] - In-person encounter Office Visit Shola Mccray MD [facility] - In-person encounter Office Visit Chinedu Hay MD [facility] Carotid artery stenosis - In-person encounter Office Visit Shola Mccray MD [facility] Peripheral Vascular Disease - In-person encounter Office Visit Shola Mccray MD [facility] - In-person encounter Office Visit Shola Mccray MD [facility] Atrial fib, paroxysmal - In-person encounter Office Visit hSola Mccray MD [facility] - In-person encounter Office Visit Shola Mccray MD [facility] - In-person encounter Office Visit Shola Mccray MD [facility] AV block, complete - In-person encounter Office Visit Shola Mccray MD [facility] - In-person encounter Office Visit Shola Mccray MD [facility] - In-person encounter Office Visit Shola Mccray MD [facility] - In-person encounter Office Visit Shola Mccray MD [facility] - In-person encounter Office Visit Shola Mccray MD [facility] DizzinessPalpitations - In-person encounter Office Visit Shola Mccray MD [facility] Aortic stenosis, severe-s/p porcine AVRAcute peptic ulcer - In-person encounter Office Visit Shola Mccray MD [facility] CAD - In-person encounter Office Visit Shola Mccray MD [facility] CARDIAC MURMURHTNAortic stenosis, severe-s/p porcine AVR - In-person encounter Office Visit Shola Mccray MD [facility] Office - In-person encounter Office Visit Shola Mccray MD [facility] - In-person encounter Office Visit Chinedu Hay MD [facility] - In-person encounter Office Visit Shola Mccray MD [facility] - In-person encounter Office Visit Chinedu Hay MD [facility] - In-person encounter Office Visit Shola Mccray MD [facility] SHORTNESS OF BREATH - In-person encounter Office Visit Shola Mccray MD [facility] - In-person encounter Office Visit Shola Mccray MD [facility] Aortic stenosis, severe-s/p porcine AVR - In-person encounter Office Visit Shola Mccray MD [facility] Aortic stenosis, severe-s/p porcine AVR - In-person encounter Office Visit Freda Davalos MD [facility] - In-person encounter Office Visit Freda Davalos MD [facility] - In-person encounter Office Visit Shola Mccray MD [facility] CARDIAC MURMURFLUID OVERLOADCADHTN VITAL SIGNS Date Observation Value Provider Body Mass Index (Ratio) 27.12 kg/m2 Ryder Mccray MD oxygen saturation, oximetry 95 % Dipti Nielsen pulse rate 64 /min Dipti Nielsen blood pressure, diastolic 67 mm[Hg] Daisy zimmerman Rust blood pressure, systolic 125 mm[Hg] Janet castañeda Rust weight E&M 189 [lb_av] Dipti Rust height E&M 70 [in_i] Dipti Rust Body Mass Index (Ratio) 27.12 kg/m2 Ryder [...] Conrado y height E&M 70 [in_i] [facility] y Body Mass Index (Ratio) 25.54 kg/m2 Ryder Mccray MD blood pressure, cuff size regular [facility] blood pressure, diastolic 66 mm[Hg] [facility] blood pressure, systolic 129 mm[Hg] Giovany [facility] pulse rate 51 /min Fior Adamant respiratory rate E&M 15 /min Fior pillai oxygen saturation, oximetry 97 % Fior Adamant weight E&M 178 [lb_av] Fior Adamant height E&M 70 [in_i] Fior Adamant Body Mass Index (Ratio) 25.82 kg/m2 Jaylen Infante blood pressure, cuff size regular amyi Leonieer blood pressure, diastolic 70 mm[Hg] Ke rri Gruenenfelder blood pressure, systolic 120 mm[Hg] Mayi ri Natalieelder oxygen saturation, oximetry 99 % Prabha Natalieelder respiratory rate E&M 12 /min [facility]abha [facility] pulse rate 67 /min Prabha Nataliee er [...] Jose Alfredo pulse rate 64 /min [place] weight E&M 192 [lb_av] [place] blood pressure, cuff size regular Ca therine [...] justin pulse rate 66 /min Prabha Issa [facility] weight E&M 187 [lb_av] Prabha Issa [facility] height E&M 70 [in_i] Prabha Issa [facility] Body Mass Index (Ratio) 27.46 kg/m2 Ryder [...] Gonsalo haines Lamb pulse rate 60 /min [facility] Lamb oxygen saturation, oximetry 98 % [facility] respiratory rate E&M 16 /min [facility] weight E&M 209 [lb_av] [facility] Body Mass Index (Ratio) 29.95 [...] Dave Ospina RN pulse rate 61 /min Dave Ospina RN oxygen saturation, oximetry 98 % [...] pressure, diastolic, left arm 63 mm [Hg] Jeanmarie Mai blood pressure, systolic, left arm 124 mm [Hg] [facility] blood pressure, diastolic, right arm 68 m m[Hg] [facility] blood pressure, systolic, right arm 118 m m[Hg] [facility] blood pressure, diastolic 68 mm[Hg] Neelima seph [facility] blood pressure, systolic 118 mm[Hg] Benja eph [facility] pulse rate 56 /min [facility] oxygen saturation, oximetry 96 % [facility] respiratory rate E&M 16 /min [facility] weight E&M 206 [lb_av] [facility] respiratory rate E&M 16 /min Freda Davalos [...] [employer] 3.5-5.2 sodium, serum 140 mmol/L [facility] 491-244 6242/08 /26 urea nitrogen/creatinin e ratio, serum 14 [...] Not Estab. platelet count 150 X10E3/UL [facility] [phone]/08 /25 red blood cell distribution width 13.7 [...] ratio (INR) 2.22 [facility] 0.90-1.20 High , [place] [address] prothrombin time (patient) 25.3 s [facility] 10.3-13.7 High C, [place] [address] activated partial thromboplastin time (aPTT) 62.0 s [facility] Units converted. See lab report for original value. High C, [place] [address] Absolute Basophils 0.0 K/CUMM [facility] 0.0-0.1 Normal C, [place] [address] Absolute Monocytes 0.4 K/CUMM [facility] 0.2-0.8 Normal , [place] [address] Absolute Lymphocytes 1.1 K/CUMM [facility] 0.8-3.3 Normal , [place] [address] Absolute Neutrophils 2.7 K/CUMM [facility] 1.7-6.5 Normal C, [place] [address] nucleated red blood cells as percent of [...] Low NT-pro BNP 2687 Link[facility] <=450 [place] [address] ferritin, serum 215 ng/mL [facility] 30-400 iron saturation percent, serum 18 % [facility] 15-55 iron, serum 61 ug/dL [facility] 38-169 iron binding capacity, unsaturated 280 ug/dL [facility] 209-300 0507/06 /21 iron binding capacity, total 341 ug/dL [facility] 593-762 3442/06 /21 lipoprotein, beta, serum, point, quantitative, calculated 108 mg/dL [facility] 0-99 High very low density lipoproteins 25 mg/dL [facility] 5-40 HDL cholesterol, serum 53 mg/dL [facility] >39 triglyceride, serum, random 127 mg/dL [facility] 0-149 cholesterol, serum 186 mg/dL [facility] 415-002 3883/06 /21 basophil count, absolute 0.0 x10E3/uL [facility] [...] Not Estab. platelet count 196 X10E3/UL [facility] 686-489 4524/06 /21 red blood cell distribution width 14.9 [...] mg/dL [facility] 0.0-1.2 albumin/globulin ratio, serum 1.8 [facility].2 globulin, serum 2.7 [facility] 1.[facility]-4.5 albumin, serum 4.8 g/dL [facility] 3.5-4.8 protein, total, serum 7.5 g/dL [facility] 6.0-8.5 calcium, serum 9.9 mg/dL [facility] 8[facility]10.[facility] carbon dioxide, venous blood 25 mmol/L [facility] 20-29 chloride, serum 104 mmol/L [facility] 96-106 potassium, serum 4.3 mmol/L [facility] 3.5-5.2 sodium, serum 142 mmol/L [facility] 974-065 2816/06 /21 urea nitrogen/creatinin e ratio, serum 13 [facility] 10-24 eGFR if 105 mL/min/{1.73 _m2} [facility] >59 eGFR if not 91 mL/min/{1.73 _m2} [facility] >59 creatinine, serum 0.70 mg/dL [facility] 0.76-1.27 Low urea nitrogen, blood 9 mg/dL [facility] 8-27 blood glucose, random 91 mg/dL [facility] 65-99 alanine aminotransferase (SGPT), serum 35 1/L [facility] aspartate aminotransferase (SGOT), serum 38 1/L [facility] creatinine, serum 0.81 mg/dL [facility] potassium, serum 3.9 mmol/L [facility] sodium, serum 138 mmol/L [facility] international normalized ratio (INR) 1.2 Gwen Lamb prothrombin time (patient) 11.6 s [facility] Lamb basophils as percent of blood leukocytes [...] Normal Absolute Neutrophil count 1786 cells/mcL [facility] (2717-6968) Normal platelet count 150 THOUSAND/UL [facility] (140-400) [...] 1 tablet by mouth once a day [facility] Eliquis 5 mg tablet active Take 1 tablet by mouth twice a day Charla Koroma Atrial fib, paroxysmal OCEANIC-AF asundexian/placeb o or eliquis/placebo completed - Lizz Booker carvedilol 3.125 mg tablet completed - [facility] furosemide 40 mg tablet completed - [facility] Calcium 600 + D(3) 600 mg-5 mcg [...] drug use no Justyna Ventimig mary kate [facility] alcohol use no Justyna Ventimig mary kate [facility] smoking status Never smoker Justyna Ventim iglia [facility] social history E&M Marital Statu s: L bora with family/friends E thnicity: Smoking History: P robby has never smoked. Shola Mccray MD social history revie wed E&M reviewed - no changes required Shola Mccray MD smoking status Never smoker Carolyn [place] social history E&M Marital Statu s: L bora with family/friends E thnicity: Smoking History: P robby is a former smoker. Shola Mccray MD [...] exercise, frequency, days per week yes [place]elle [place] caffeine use, averag e drinks per day no [place] passive cigarette sm nithin exposure yes Joelle [...] Prabha Estradajesse drug use none Prabha Dominguezkarrieaniaimeewillem [facility] passive cigarette sm nithin exposure yes Prabha [...] smoker. 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 Patient and I had long discussion. Given option of surgery (bilateral endarterectiomy) vs status quo/medical therapy. Patient states 'I'm 83 years old and do anything I want to. I don't believe I want to have surgery'. I think, given his lack of symptoms, this is the right decsion. Shola Mccray MD [id number],C, B P today: 111/59 P rior BP: 121/68 (07/13/2023) Labs Reviewed: C reat: 0.90 (07/24/2023) C hol: 95 (07/24/2023) HDL: 49 (07/24/2023) His updated medication list for this problem includes: Carvedilol 3.125 Mg Tablet (Carvedilol) Furosemide 40 Mg Tablet (Furosemide) Chinedu Hay MD [id number],S, Chinedu Hay MD [id number],C,P resents to office with headache, pt is concerned that this is related to his carotids. His last carotid duplex showed he has less than 50% stenosis in LICA and 50-69% ALEX. pt was reassured. Chinedu Hay MD [id number],S, Shola gutierrez MD [id number],S,In [facility]. 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 Feels much better. Shola Mccray MD [id number],C,n ow hyoptensive will hold BB and entresto Justyna Ventimiglia [facility] [id number],C,i n setting of severe and CMP. Reginaldo hold BB and Entresto at this time to allow patient to take diuretic therapy and manage symptoms. Will resume others as BP tolerates Justyna Ventimiglia [facility] [id number],C,H e has been evaluated for TAVR and is planned of 07/06/23. He is symptomatic and will adjust meds to attempt to manage volume status until procedure date. Justyna Ventimiglia [facility] [id number],S, Shola gutierrez MD [id number],S, Shola gutierrez MD [id number],B, Shola Ramada n [place] [id number],B, Shola Ramada n [place] [id number],S, Shola Ramada n [place] [id number],N,N eeds OAC. W ill enroll in [facility] trial. Shola Ramadan WA [id number],B, Shola Ramada n [place] [id number],S, Shola Ramada n [place] [id number],S, Shola Ramada n [place] [id number],S, Shola Ramada n WA [id number],S, Shola Ramada n [place] [id number],B, Shola Ramada n [place] [id number],S, Shola Ramada n [place] [id number],S, Shola Ramada n [place] [id number],S, Shola Ramada n [place] [id number],S, Shola Ramada n [place] [id number],S, Shola Ramada n [place] [id number],S, Shola Ramada n [place] [id number],S, Shola Ramada n [place] [id number],S, Shola Ramada n [place] [id number],B, Shola Ramada n [place] [id number],N,S/P PPM Shola Ramadan WA [id number],B, Shola Ramada n [place] [id number],S, Shola Ramada n [place] [id number],B, Shola gutierrez MD [id number],B, Shola gutierrez MD [id number],S,ECHO in 1 yea r to eval valve. [...] Shola gutierrez MD Cardiology Shola Mccray MD Cardiology:S/P TAVR [...] treated with TAVR. Feels much better. Shola Mccary MD Cardiology:now hyopt yonatan will hold BB and entresto Justyna Ventimiglia [employer] Cardiology:in settin g of severe and CMP. Reginaldo hold BB and Entresto at this time to allow patient to take diuretic therapy and manage symptoms. Will resume others as BP tolerates Justyna Ventimiglia [facility] Cardiology:He has be en evaluated for TAVR and is planned of 07/06/23. He is symptomatic and will adjust meds to attempt to manage volume status until procedure date. Justyna Ventimiglia [employer] Cardiology Shola Mccray MD Cardiology Shola Mccray MD Cardiology Shola Mccray MD Cardiology Shola Mccray MD Cardiology Shola Mccray MD Cardiology:Needs OAC . W ill enroll in [place] trial. Shola Mccray MD Cardiology Shola Mccray MD Cardiology Shola Mccray MD Cardiology Shola Mccray MD Cardiology Shola Mccray MD Cardiology Shola Mccray MD Cardiology Shola Mccray MD Cardiology Sohla Mccray MD Cardiology Shola Mccray MD Cardiology [...] Shola gunderson MD Cardiology Follow u p Sholasahun gunderson MD Cardiology Follow u p Shola [...] gunderson MD Cardiology Follow u p Shola gundersno MD Cardiology Follow u p Sholashaun gunderson MD fu Shola Mccray MD fu Shola Mccray MD fu:Negative by cath 2010 Shola burr MD fu:S/P porcine AVR 2 011 W ill get yearly ECHO Shola Mccray MD F/U: H is updated medication list for this problem includes: Aspirin 325 Mg Tabs (Aspirin) ..... One tab. daily Orders: E KG (CPT-57354) Shola Mccray MD F/U: H is updated medication list for this problem includes: Aspirin 325 Mg Tabs (Aspirin) ..... One tab. daily Shola Mcrcay MD F/U: O rders: C omplete Echo (CPT-84241) Shola Mccray MD F/U: H is updated medication list for this problem includes: Aspirin 325 Mg Tabs (Aspirin) ..... One tab. daily Orders: X -Ray, Chest, PA & Lateral (CPT-20911) Shola Mccray MD follow up: H is updated medication list for this problem includes: Aspirin 325 Mg Tabs (Aspirin) ..... One tab. daily Shola Mccray MD follow up: H is updated medication list for this problem includes: Aspirin 325 Mg Tabs (Aspirin) ..... One tab. daily hSola Mccray MD follow up: B P today: [...] ..... One tab. daily Orders: E KG (CPT-62614) Chinedu Hay MD follow up: H is [...] follow up: O rders: C omplete Echo (CPT-96687) Shola Mccray MD follow up:will check a [...] ..... One tab. daily Orders: E KG (CPT-96194) S tress Test - Adenosine (31541) Shola Mccray MD chest pain: His updated [...] and contractility. (12/15/2010) Orders: C omplete Echo (CPT-44041) Shola Mccray MD hospital follow up: H [...] follow up: O rders: C omplete Echo (CPT-11648) BP today: 118/68 Prior BP: 145/79 (11/20/2010) [...] EKG Shola Mccray MD complete d SNOMED-CT: 831600287 [id number] Current Medications Documented Shola Mccray MD completed EKG Shola Mccray MD complete d SNOMED-CT: 772142506 713058 Current Medications Documented Shola Mccray MD completed EKG Shola Mccray MD complete d DLCO - 82357 Shola Mccray MD comple meagan FRC - 13411 Shola Mccray MD complet ed FVC - 35391 Shola Mccray MD complet ed EKG Chinedu Hay MD completed EKG Chinedu Hay MD completed EKG Lauryn Hanks completed EKG Iveth Pearson MD complet ed
--- OUTSIDE RECORDS SUMMARY | 2025-02-22 12:48 | XMS_ITS | Clinical Summary ---
Author Organization [facility] Physician Office Building [address] [place] [address] Care Team Providers Care Keyboard Teacher Name Role Phone Mahendra Henderson MD, Shola Bryson Unavailable Miscellaneous, Not In File Unavailable Unava Ry Cevallos MD Primary Care Provider [phone] Matthew Harvey MD Unavailable [phone] Allergies Active Allergy Reactions Criticality Noted Date Comments Quinine Unknown long time ago , but hospitalized x2 Medications levothyroxine (SYNTHROID, LEVOTHROID) 50 mcg tablet Take 1 tablet (50 mcg total) by mouth restrictive preparation operator before breakfast 9 Active artificial tears (ISOPTO [...] 07/02/2020 Assessment & Plan (11/11/2020 10:39 AM OBJECT ORIENTED DEVELOPER): Patient is doing extremely well following revision [...] 10/16/2019 Assessment & Plan (11/20/2019 10:58 AM OBJECT ORIENTED DEVELOPER): Patient's fracture is essentially healed. He should be working on fvjeg-wb-lgilng exercises. Warm soaks may be helpful specially with colder weather. Assessment & Plan (10/16/2019 5:41 PM OBJECT ORIENTED DEVELOPER): The patient has a nondisplaced fracture of [...] humerus Assessment & Plan (12/06/2017 11:20 AM OBJECT ORIENTED DEVELOPER): Patient no longer requires cast immobilization. Patient was advised warm soaks and stretching should be performed on a regular basis. He would like physical therapy was advised to call would be happy to arrange for him [place] of left foot 11/15/2017 Left supracondylar humerus f racmina, closed, initial encounter 11/08/2017 Assessment & Plan (11/08/2017 1:17 PM OBJECT ORIENTED DEVELOPER): Patient was placed in a long-arm cast. His knee surgery for later this month was postponed as he will need to be able to weightbear through the left arm. He is return the office in four weeks for cast removal and follow-up films Arthritis of left knee 09/14/2017 Assessment & Plan (10/23/2020 4:04 PM OBJECT ORIENTED DEVELOPER): Patient is at a point where he [...] to be evaluated this week by his sugar cane planting equipment operator and will get back to us on [...] than three times a week 06/09/2023 Attends Yazdanism Services Not on file 06/09 Active Member [...] staff should administer the PHQ-9) 0 03/07/2023 [facility] - Occupational Stress [...] place to sleep or slept in a group home (including now)? 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 Not on file Not on file Not on file Obstetrics History Last Filed Vital Signs Vital Sign Reading Time Taken Comments Blood Pressure 145/83 11/16/2024 11:07 AM OBJECT ORIENTED DEVELOPER Pulse 62 11/16/2024 11:07 AM OBJECT ORIENTED DEVELOPER Temperature 36.8 C (98.2 F) 11/16/2024 11:07 AM OBJECT ORIENTED DEVELOPER Respiratory Rate 18 11/16/2024 11:07 AM OBJECT ORIENTED DEVELOPER Oxygen Saturation 94% 11/16/2024 11:07 AM OBJECT ORIENTED DEVELOPER Inhaled Oxygen Concentration - - Weight 83.9 kg (185 lb) 11/15/2024 10:30 PM OBJECT ORIENTED DEVELOPER Height 175.3 cm (5' 9 ) 11/15/2024 10:30 PM OBJECT ORIENTED DEVELOPER Body Mass Index 27.32 11/15/2024 10:30 PM OBJECT ORIENTED DEVELOPER Plan of Treatment Health Maintenance Due Date [...] 11/16/2025 11/16/2024 Medical Devices Implanted Type Area Mechanical Technician Device Identifier Shelf Expiration Date Model / Serial / Lot Tierra The Editorialist Inc [id number] Persona 14mm 30+ Mm Knee Tibia Taper Extension Stem - [id number] Implanted:Qty: 1 on 08/28/2020 by Gualberto New MD at [facility] Tierra Biomet Inc [id number] 06/22/2030 [id number] / / [id number] [facility] LM Technologies Inc Cm-9622f Surelock 2.2mm Flexible Brick Or Block Maker Preload 2 [place] Suture Uhmwpe - [id number] Implanted:Qty: 3 on 08/28/2020 by Gualberto New MD at [facility] Left: Patella Tierra Biomet Inc 05/19/2022 CM-9622F / / [id number] Tierra Biomet Inc [id number] 2.9mm Drill [place] Suture - [id number] Implanted:Qty: 1 on 08/28/2020 by Gualberto New MD at [facility] Left: Knee Tierra Biomet Inc 06/06/2021 [id number] / / [id number] Marketecture Medical Inc Cm-9329 Quattro Force Fiber Od2.9 Mm 2 Cannula Preload Unique Eyelet Design Glenoid [place] Suture Peek Shoulder Labral Repair System - [id number] Implanted:Qty: 1 on 08/28/2020 by Gualberto New MD at [facility] Left: Knee Tierra Biomet Inc 03/28/2021 CM-9329 / / [id number] Balihoous Medical Inc [id number] [place] R High Viscosity Cement 40gm Bone Green - [id number] Implanted:Qty: 2 on 08/28/2020 by Gualberto New MD at [facility] PolyTherics Medical Inc [id number] 02/26/2023 [id number] / / [id number] Tierra Us Inc [id number] Persona 38mm Knee Component Patellar All Poly Sterile - [id number] Implanted:Qty: 1 on 08/28/2020 by Gualberto New MD at [facility] Left: Knee Tierra Biomet Inc [id number] 04/28/2026 [id number] / / [id number] Tierra Us Inc [id number] Persona Cemented Stem Knee Left 5d H Baseplate Tibial Tivanium - [id number] Implanted:Qty: 1 on 08/28/2020 by Gualberto New MD at [facility] Left: Knee Tierra Biomet Inc [id number] 10/28/2029 [id number] / / [id number] Tierra Us Inc [id number] Persona Cruciate Retain Cemented Knee Left 8 Standard Component - [id number] Implanted:Qty: 1 on 08/28/2020 by Gualberto New MD at [facility] Left: Knee Tierra Biomet Inc [id number] 05/28/2029 [id number] / / [id number] [employer]ure [employer] Inc Cm-9622f Surelock 2.2mm Flexible Brick Or Block Maker Preload 2 [place] Suture Uhmwpe - [id number] Implanted:Qty: 1 on 08/28/2020 by Gualberto New MD at [facility] Left: Patella [employer]ierra [employer]omet Inc 05/19/2022 CM-9622F / / [id number] Tierra Biomet Inc [id number] Persona 13mm Cruciate Retain Knee 8-11 Insert Articular Vivacit-E Latex Free - [id number] Implanted:Qty: 1 on 08/28/2020 by Gualberto New MD at [facility] [employer]ierra [employer] Inc [id number] 01/27/2024 [id number] / / [id number] [facility] LM Technologies Inc Cm-9129 Quattro Link 2.9mm Knotless [place] Suture Sterile Shoulder System - [id number] Implanted:Qty: 1 on 08/28/2020 by Gualberto New MD at [facility] Left: Knee Tierra Biomet Inc 07/24/2024 CM-9129 / / [id number] Lifenet Fatb Flexigraft 160mm Frozen Block Graft Soft Tissue Achilles Tendon - [id number] Implanted:Qty: 1 on 08/28/2020 by Gualberto New MD at [facility] Left: Patella Lifenet 10/17/2022 FATB / / [id number] Biotronik Inc [id number] Promri Solia S 60cm Lead Pacing Steroid Eluting - [id number] - [id number] Implanted:Qty: 1 on 02/02/2022 by Shola Mccray Jr., MD at [facility] Left: Chest Biotronik Inc 11/28/2023 465213 / [id number] / Biotronik Inc 437826 Solia S 53cm Steroid Elute Bipolar Active Fixation Endocardial - [id number] - [id number] Implanted:Qty: 1 on 02/02/2022 by Shola Mccray Jr., MD at [facility] Left: Chest Biotronik Inc 11/28/2023 020169 / [id number] / Biotronik Inc 481639 Edora Promri 78l32s4.5mm Dual Chamber Rate Adaptive Unipolar Bipolar - [id number] - [id number] Implanted:Qty: 1 on 02/02/2022 by Shola Mccray Jr., MD at [facility] Left: Chest Biotronik Inc 05/28/2023 586506 / [id number] / Jaquez Lifesciences Nadia 3 Commander Jaquez 26mm Transcatheter Ultra Low Profile T4euy554i - [id number] - [id number] Implanted:Qty: 1 on 07/06/2023 by Kadeem Sen MD at [facility] Jaquez Lifesciences 03/09/2026 [id number] / [id number] / Garcia Vascular Device Clsr Perclose Prostyle Sut-Mediatd Closure-Repair Sys 89232-32 - [id number] Implanted:Qty: 1 on 07/06/2023 by Kadeem Sen MD at [facility] [employer] 03/28/2025 51923-13 / / [id number] Garcia Vascular Device Clsr Perclose Prostyle Sut-Mediatd Closure-Repair Sys 36384-41 - [id number] Implanted:Qty: 1 on 07/06/2023 by Kadeem Sen MD at [facility] [employer] 03/28/2025 45750-69 / / [id number] Garcia V[employer] Device Clsr Perclose Prostyle Sut-Mediatd Closure-Repair Sys 65127-88 - [id number] Implanted:Qty: 1 on 07/06/2023 by Kadeem Sen MD at [facility] [employer] 02/26/2025 93414-08 / / [id number] Garcia V[employer] Device Clsr Perclose Prostyle Sut-Mediatd Closure-Repair Sys 13495-73 - [id number] Implanted:Qty: 1 on 07/06/2023 by Kadeem Sen MD at [facility] [employer] 03/28/2025 [id number] / / [id number] Insurance MEDICARE FORMERLY [facility] SUPPLEMENT MEDICARE FORMERLY [facility] SUPPLEMENT MEDICARE MEDICARE FORMERLY [facility] [place] [address] Advance Directives For more information, please contact: [phone] * Full Code (Latest Code Status on [...] 12:11 AM 03/09/2023 7:04 PM Care Teams Keyboard Teacher Relationship Specialty Start Date End Date Ry Veronica MD PCP - General Family Practice 06/07/23 Shola Mccray Jr., MD [address] [place] [address] Consulting Physician Cardiovascular Disease 02/03/22 Miscellaneous, Not In File 02/03/22 [place] [id number] [address] [facility] [address] [address] Surgeon Cardiothoracic Surgery 06/15/23
--- OUTSIDE RECORDS SUMMARY | 2025-02-22 12:48 | XMS_ITS | Referral Summary ---
Author Organization [facility] Physician Office Building [address] [place] [phone] Care Team Providers Care Bookbinder Apprentice Name Role Phone Mahendra Henderson MD, Shola Bryson Unavailable Miscellaneous, Not In File Unavailable Unava Ry Cevallos MD Primary Care Provider [phone] Matthew Harvey MD Unavailable [phone] Allergies Active Allergy Reactions Criticality Noted Date Comments Quinine Unknown long time ago , but hospitalized x2 Medications levothyroxine (SYNTHROID, LEVOTHROID) 50 mcg tablet Take 1 tablet (50 mcg total) by mouth floatman before breakfast 9 Active artificial tears (ISOPTO [...] 07/02/2020 Assessment & Plan (11/11/2020 10:39 AM CAMPER ASSEMBLER): Patient is doing extremely well following revision [...] 10/16/2019 Assessment & Plan (11/20/2019 10:58 AM CAMPER ASSEMBLER): Patient's fracture is essentially healed. He should be working on twnun-mj-kinoem exercises. Warm soaks may be helpful specially with colder weather. Assessment & Plan (10/16/2019 5:41 PM CAMPER ASSEMBLER): The patient has a nondisplaced fracture of [...] humerus Assessment & Plan (12/06/2017 11:20 AM CAMPER ASSEMBLER): Patient no longer requires cast immobilization. Patient was advised warm soaks and stretching should be performed on a regular basis. He would like physical therapy was advised to call would be happy to arrange for him [place] of left foot 11/15/2017 Left supracondylar humerus f racmina, closed, initial encounter 11/08/2017 Assessment & Plan (11/08/2017 1:17 PM CAMPER ASSEMBLER): Patient was placed in a long-arm cast. His knee surgery for later this month was postponed as he will need to be able to weightbear through the left arm. He is return the office in four weeks for cast removal and follow-up films Arthritis of left knee 09/14/2017 Assessment & Plan (10/23/2020 4:04 PM CAMPER ASSEMBLER): Patient is at a point where he [...] to be evaluated this week by his gas processing plant operator and will get back to us [...] than three times a week 06/09/2023 Attends Scientologist Services Not on file 06/09 Active Member [...] staff should administer the PHQ-9) 0 03/07/2023 [facility] - [facility]ational [facility] Questionnaire Answer Date [...] place to sleep or slept in a senior care (including now)? 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 Not on file Not on file Last Filed Vital Signs Vital Sign Reading Time Taken Comments Blood Pressure 145/83 11/16/2024 11:07 AM CAMPER ASSEMBLER Pulse 62 11/16/2024 11:07 AM CAMPER ASSEMBLER Temperature 36.8 C (98.2 F) 11/16/2024 11:07 AM CAMPER ASSEMBLER Respiratory Rate 18 11/16/2024 11:07 AM CAMPER ASSEMBLER Oxygen Saturation 94% 11/16/2024 11:07 AM CAMPER ASSEMBLER Inhaled Oxygen Concentration - - Weight 83.9 kg (185 lb) 11/15/2024 10:30 PM CAMPER ASSEMBLER Height 175.3 cm (5' 9 ) 11/15/2024 10:30 PM CAMPER ASSEMBLER Body Mass Index 27.32 11/15/2024 10:30 PM CAMPER ASSEMBLER Plan of Treatment Not on file Medical Devices Implanted Type Area Corporate Buyer Device Identifier Shelf Expiration Date Model / Serial / Lot Tierra Stolen [employer] Inc [id number] Persona 14mm 30+ Mm Knee Tibia Taper Extension Stem - [id number] Implanted:Qty: 1 on 08/28/2020 by Gualberto New MD at [facility] [employer]ierra Biomet Inc [id number] 06/22/2030 [id number] / / [id number] [employer] Cm-9622f Surelock 2.2mm Flexible Blood Bank Supervisor Preload 2 [place] Suture Uhmwpe - [id number] Implanted:Qty: 3 on 08/28/2020 by Gualberto New MD at [facility] Left: Patella Tierra Bi[employer] Inc 05/19/2022 CM-9622F / / [id number] Tierra Biomet Inc [id number] 2.9mm Drill [place] Suture - [id number] Implanted:Qty: 1 on 08/28/2020 by Gualberto New MD at [facility] Left: Knee Tierra Biomet Inc 06/06/2021 [id number] / / [id number] [employer]uga Medical Cm-9329 Quattro Force Fiber Od2.9 Mm 2 Cannula Preload Unique Eyelet Design Glenoid [place] Suture Peek Shoulder Labral Repair System - [id number] Implanted:Qty: 1 on 08/28/2020 by Gualberto New MD at [facility] Left: Knee Tierra Biomet Inc 03/28/2021 CM-9329 / / [id number] Natural Dentist Medical Inc [id number] Pal[place] R High Viscosity Cement 40gm Bone Green - [id number] Implanted:Qty: 2 on 08/28/2020 by Gualberto New MD at [facility] [employer] Inc [id number] 02/26/2023 [id number] / / [id number] Tierra Stolen [employer] Games Inc [id number] Persona 38mm Knee Component Patellar All Poly Sterile - [id number] Implanted:Qty: 1 on 08/28/2020 by Gualberto New MD at [facility] Left: Knee Tierra Biomet Inc [id number] 04/28/2026 [id number] / / [id number] Tierra Us Inc [id number] Persona Cemented Stem Knee Left 5d H Baseplate Tibial Tivanium - [id number] Implanted:Qty: 1 on 08/28/2020 by Gualberto New MD at [facility] Left: Knee Tierra Biomet Inc [id number] 10/28/2029 [id number] / / [id number] Tierra Us Inc [id number] Persona Cruciate Retain Cemented Knee Left 8 Standard Component - [id number] Implanted:Qty: 1 on 08/28/2020 by Gualberto New MD at [facility] Left: Knee Tierra Biomet Inc [id number] 05/28/2029 [id number] / / [id number] [employer] Cm-9622f Surelock 2.2mm Flexible Blood Bank Supervisor Preload 2 [place] Suture Uhmwpe - [id number] Implanted:Qty: 1 on 08/28/2020 by Gualberto New MD at [facility] Left: Patella [employer]ierra [employer] Inc 05/19/2022 CM-9622F / / [id number] Tierra Biomet Inc [id number] Persona 13mm Cruciate Retain Knee 8-11 Insert Articular Vivacit-E Latex Free - [id number] Implanted:Qty: 1 on 08/28/2020 by Gualberto New MD at [facility] [employer]ierra [employer] Inc [id number] 01/27/2024 [id number] / / [id number] [employer] Cm-9129 Quattro Link 2.9mm Knotless [place] Suture Sterile Shoulder System - [id number] Implanted:Qty: 1 on 08/28/2020 by Gualberto New MD at [facility] Left: Knee Tierra Biomet Inc 07/24/2024 CM-9129 / / [id number] Lifenet Fatb Flexigraft 160mm Frozen Block Graft Soft Tissue Achilles Tendon - [id number] Implanted:Qty: 1 on 08/28/2020 by Gualberto New MD at [facility] Left: Patella Lifenet 10/17/2022 FATB / / [id number] Biotronik Inc 562857 Promri Solia S 60cm Lead Pacing Steroid Eluting - [id number] - [id number] Implanted:Qty: 1 on 02/02/2022 by Shola Mccray Jr., MD at [facility] Left: Chest Biotronik Inc 11/28/2023 612873 / [id number] / Biotronik Inc 053044 Solia S 53cm Steroid Elute Bipolar Active Fixation Endocardial - [id number] - [id number] Implanted:Qty: 1 on 02/02/2022 by Shola Mccray Jr., MD at [facility] Left: Chest Biotronik Inc 11/28/2023 908347 / [id number] / Biotronik Inc 832790 Edora Promri 34j05q0.5mm Dual Chamber Rate Adaptive Unipolar Bipolar - [id number] - [id number] Implanted:Qty: 1 on 02/02/2022 by Shola Mccray Jr., MD at [facility] Left: Chest Biotronik Inc 05/28/2023 232173 / [id number] / Jaquez Lifesciences Nadia 3 Commander Jaquez 26mm Transcatheter Ultra Low Profile B3ema342c - [id number] - [id number] Implanted:Qty: 1 on 07/06/2023 by Kadeem Sen MD at [facility] [employer]aque[employer] Lifesciences 03/09/2026 [id number] / [id number] / Garcia Vascular Device Clsr Perclose Prostyle Sut-Mediatd Closure-Repair Sys 09546-53 - [id number] Implanted:Qty: 1 on 07/06/2023 by Kadeem Sen MD at [facility] [employer] 03/28/2025 82026-96 / / [id number] Garcia [employer] Device Clsr Perclose Prostyle Sut-Mediatd Closure-Repair Sys 27130-32 - [id number] Implanted:Qty: 1 on 07/06/2023 by Kadeem Sen MD at [facility] [employer] 03/28/2025 77268-07 / / [id number] Garcia [employer] Device Clsr Perclose Prostyle Sut-Mediatd Closure-Repair Sys 44904-29 - [id number] Implanted:Qty: 1 on 07/06/2023 by Kadeem Sen MD at [facility] [employer] 02/26/2025 17541-99 / / [id number] Garcia V[employer] Device Clsr Perclose Prostyle Sut-Mediatd Closure-Repair Sys 51403-99 - [id number] Implanted:Qty: 1 on 07/06/2023 by Kadeem Sen MD at [facility] [employer] 03/28/2025 70433-58 / / [id number] Insurance MEDICARE [facility] MEDICARE [facility] M[facility] SUPPLEMENT MEDICARE MEDICARE GE MCR SUPPLEMENT [place] [address] Advance Directives For more information, please contact: [phone] * Full Code (Latest Code Status on [...] 12:11 AM 03/09/2023 7:04 PM Care Teams Bookbinder Apprentice Relationship Specialty Start Date End Date Ry Veronica MD PCP - General Family Practice 06/07/23 Shola Mccray Jr., MD [address] [place] [address] Consulting Physician Cardiovascular Disease 02/03/22 Miscellaneous, Not In File 02/03/22 [place] [address] [address] [facility] [address] [facility] [address] [place] [address] Surgeon Cardiothoracic Surgery 06/15/23
== END 2025-02-22 11:19 | disposition home or self-care (01) ==
PROVIDERS: PCP Nurse Practitioner Family; Visit Provider Psychiatry & Neurology Neurology
DX: I65.23 Occlusion and stenosis of bilateral carotid arteries (principal)
CPT/HCPCS: 93880

== ENCOUNTER 2025-04-04 00:25 | Day surgery (SDC) | payer MEDICARE, SELFPAY ==
[2025-03-29 14:16] VITALS: BMI 26.4
--- NOTE | 2025-03-29 14:34 | PC.NURSE ---
Report to the Outpatient Waiting Room, entrance under the green pavilion located off [facility], at time __1145am on date _04/04/25 . Planned Procedure Time: _1:45pm .? Time changes happen often and if your time is changed the preop area will call you the afternoon before. - You and your visitor will be asked to self-screen and do not enter if you have any COVID symptoms. Please call surgeon if you need to reschedule. - A mask is optional within the hospital at this time. Patients may have No food from midnight until time of surgery and no smoking, or chewing tobacco (or any form of nicotine). No chewing gum, candy or mints. Take only the following medications with a SIP of water on the morning of surgery: __Sertraline and Levothyroxine DO NOT STOP ANY OF YOUR OTHER PRESCRIPTION MEDICATIONS PRIOR TO SURGERY EXCEPT THE FOLLOWING Hold all vitamins and supplements for 3 days per anesthesiologist. Medications to discontinue per physician Eliquis instructions per Dr. Sharma office - I called their office they will check w DR and call pt back Date to take last dose____Per Dr Sharma Please no make-up, nail gabonese, hairspray, perfume, deodorant, or body powder the day of surgery.? No jewelry (including any body piercings) or valuables the day of surgery, leave them at home.? Please take a shower or bath the night before, or the morning of, surgery with an antibacterial soap.? Wear comfortable, loose fitting clothing.? - Jewelry must be removed prior to entering the operating room.? Rings and piercings that are not removed may be cut off. - The hospital will not accept responsibility for valuables.? - Please leave all valuables, including medications, at home the day of surgery. If you are going home after surgery, a licensed sanitation truck driver must drive you home.? - NO public transportation without another adult if you receive anesthesia. - We recommend that an adult stay with you for 24 hours following discharge. - We also recommend that you do not drive, make important decision, drink alcoholic beverages, or take any drugs that were not prescribed by your health care provider for at least 24 hours after your discharge time. Follow any additional instructions given to you from your surgeon. Telephone instructions given to __Patient and asked if any additional questions and then verbalized understanding. Patient advised to call surgeon office or pre surgery nurse liaison [phone] if any additional questions.
--- OUTSIDE RECORDS SUMMARY | 2025-04-04 00:33 | XMS_ITS | Referral Summary ---
Author Organization [facility] Physician Office Building [address] [place] [address] Care Team Providers Care Sheet Music Salesperson Name Role Phone Mahendra Henderson MD, Shola Bryson Unavailable [phone] Miscellaneous, Not In File Unavailable Unava Ry Cevallos MD Primary Care Provider [phone] Matthew Harvey MD Unavailable [phone] Allergies Active Allergy Reactions Criticality Noted Date Comments Quinine Unknown long time ago , but hospitalized x2 Medications levothyroxine (SYNTHROID, LEVOTHROID) 50 mcg tablet Take 1 tablet (50 mcg total) by mouth heavy lift rigger before breakfast 9 Active artificial tears (ISOPTO [...] 07/02/2020 Assessment & Plan (11/11/2020 10:39 AM PUBLIC RELATIONS ACCOUNT SUPERVISOR): Patient is doing extremely well following revision [...] 10/16/2019 Assessment & Plan (11/20/2019 10:58 AM PUBLIC RELATIONS ACCOUNT SUPERVISOR): Patient's fracture is essentially healed. He should be working on diyaf-ax-uufowx exercises. Warm soaks may be helpful specially with colder weather. Assessment & Plan (10/16/2019 5:41 PM PUBLIC RELATIONS ACCOUNT SUPERVISOR): The patient has a nondisplaced fracture of [...] humerus Assessment & Plan (12/06/2017 11:20 AM PUBLIC RELATIONS ACCOUNT SUPERVISOR): Patient no longer requires cast immobilization. Patient was advised warm soaks and stretching should be performed on a regular basis. He would like physical therapy was advised to call would be happy to arrange for him [place] of left foot 11/15/2017 Left supracondylar humerus f racmina, closed, initial encounter 11/08/2017 Assessment & Plan (11/08/2017 1:17 PM PUBLIC RELATIONS ACCOUNT SUPERVISOR): Patient was placed in a long-arm cast. His knee surgery for later this month was postponed as he will need to be able to weightbear through the left arm. He is return the office in four weeks for cast removal and follow-up films Arthritis of left knee 09/14/2017 Assessment & Plan (10/23/2020 4:04 PM PUBLIC RELATIONS ACCOUNT SUPERVISOR): Patient is at a point where he [...] to be evaluated this week by his claims adjuster supervisor and will get back to us on [...] than three times a week 06/09/2023 Attends [facility] Not on file 06/09 Active Member [...] staff should administer the PHQ-9) 0 [facility] Answer Date [...] on file Legal Sex Male 11:18 AM PUBLIC RELATIONS ACCOUNT SUPERVISOR Gender Identity Not on file Sexual Orientation Not on file 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 Not on file Not on file Not on file Last Filed Vital Signs Vital Sign Reading Time Taken Comments Blood Pressure 145/83 11/16/2024 11:07 AM PUBLIC RELATIONS ACCOUNT SUPERVISOR Pulse 62 11/16/2024 11:07 AM PUBLIC RELATIONS ACCOUNT SUPERVISOR Temperature 36.8 C (98.2 F) 11/16/2024 11:07 AM PUBLIC RELATIONS ACCOUNT SUPERVISOR Respiratory Rate 18 11/16/2024 11:07 AM PUBLIC RELATIONS ACCOUNT SUPERVISOR Oxygen Saturation 94% 11/16/2024 11:07 AM PUBLIC RELATIONS ACCOUNT SUPERVISOR Inhaled Oxygen Concentration - - Weight 83.9 kg (185 lb) 11/15/2024 10:30 PM PUBLIC RELATIONS ACCOUNT SUPERVISOR Height 175.3 cm (5' 9 ) 11/15/2024 10:30 PM PUBLIC RELATIONS ACCOUNT SUPERVISOR Body Mass Index 27.32 11/15/2024 10:30 PM PUBLIC RELATIONS ACCOUNT SUPERVISOR Plan of Treatment Not on file Medical Devices Implanted Type Area Wildlife Technician Device Identifier Shelf Expiration Date Model / Serial / Lot Tierra Kognitio Inc [id number] Persona 14mm 30+ Mm Knee Tibia Taper Extension Stem - [id number] Implanted:Qty: 1 on 08/28/2020 by Gualberto New MD at [facility] Tierra Biomet Inc [id number] 06/22/2030 [id number] / / [id number] WebStart [place] Cm-9622f Surelock 2.2mm Flexible Lumber Loader Preload 2 [place] Suture Uhmwpe - [id number] Implanted:Qty: 3 on 08/28/2020 by Gualberto New MD at [facility] Left: Patella Tierra Biomet Inc 05/19/2022 CM-9622F / / [id number] Tierra Biomet Inc [id number] 2.9mm Drill [place] Suture - [id number] Implanted:Qty: 1 on 08/28/2020 by Gualberto New MD at [facility] Left: Knee Tierra Biomet Inc 06/06/2021 [id number] / / [id number] WebStart [place] Cm-9329 Quattro Force Fiber Od2.9 Mm 2 Cannula Preload Unique Eyelet Design Glenoid [place] Suture Peek Shoulder Labral Repair System - [id number] Implanted:Qty: 1 on 08/28/2020 by Gualberto New MD at [facility] Left: Knee Tierra Biomet Inc 03/28/2021 CM-9329 / / [id number] NetEase.com Medical Inc [id number] [place] R High Viscosity Cement 40gm Bone Green - [id number] Implanted:Qty: 2 on 08/28/2020 by Gualberto New MD at [facility] Acreations Reptiles and Exotics Inc [id number] 02/26/2023 [id number] / / [id number] Tierra Kognitio Inc [id number] Persona 38mm Knee Component Patellar All Poly Sterile - [id number] Implanted:Qty: 1 on 08/28/2020 by Gualberto New MD at [facility] Left: Knee Tierra Biomet Inc [id number] 04/28/2026 [id number] / / [id number] Tierra Us Inc [id number] Persona Cemented Stem Knee Left 5d H Baseplate Tibial Tivanium - [id number] Implanted:Qty: 1 on 08/28/2020 by Gualberto New MD at [facility] Left: Knee Tierra Biomet Inc [id number] 10/28/2029 [id number] / / [id number] Tierra Us Inc [id number] Persona Cruciate Retain Cemented Knee Left 8 Standard Component - [id number] Implanted:Qty: 1 on 08/28/2020 by Gualberto New MD at [facility] Left: Knee Tierra Biomet Inc [id number] 05/28/2029 [id number] / / [id number] Boni Medical Anadys Cm-9622f Surelock 2.2mm Flexible Lumber Loader Preload 2 [place] Suture Uhmwpe - [id number] Implanted:Qty: 1 on 08/28/2020 by Gualberto New MD at [facility] Left: Patella Tierra Biomet Inc 05/19/2022 CM-9622F / / [id number] Tierra Biomet Inc [id number] Persona 13mm Cruciate Retain Knee 8-11 Insert Articular Vivacit-E Latex Free - [id number] Implanted:Qty: 1 on 08/28/2020 by Gualberto New MD at [facility] Tierra Biomet Inc [id number] 01/27/2024 [id number] / / [id number] WebStart [place] Cm-9129 Quattro Link 2.9mm Knotless [place] Suture Sterile Shoulder System - [id number] Implanted:Qty: 1 on 08/28/2020 by Gualberto New MD at [facility] Left: Knee Tierra Biomet Inc 07/24/2024 CM-9129 / / [id number] Lifenet Fatb Flexigraft 160mm Frozen Block Graft Soft Tissue Achilles Tendon - [id number] Implanted:Qty: 1 on 08/28/2020 by Gualberto New MD at [facility] Left: Patella Lifenet 10/17/2022 FATB / / [id number] Biotronik Inc 115855 Promri Solia S 60cm Lead Pacing Steroid Eluting - [id number] - [id number] Implanted:Qty: 1 on 02/02/2022 by Shola Mccray Jr., MD at [facility] Left: Chest Biotronik Inc 11/28/2023 724498 / [id number] / Biotronik Inc 317576 Solia S 53cm Steroid Elute Bipolar Active Fixation Endocardial - [id number] - [id number] Implanted:Qty: 1 on 02/02/2022 by Shola Mccray Jr., MD at [facility] Left: Chest Biotronik Inc 11/28/2023 230111 / [id number] / Biotronik Inc [id number] Edora Promri 97r66k8.5mm Dual Chamber Rate Adaptive Unipolar Bipolar - [id number] - [id number] Implanted:Qty: 1 on 02/02/2022 by Shola Mccray Jr., MD at [facility] Left: Chest Biotronik Inc 05/28/2023 362231 / [id number] / Jaquez Lifesciences Nadia 3 Commander Jaquez 26mm Transcatheter Ultra Low Profile P8hdf052m - [id number] - [id number] Implanted:Qty: 1 on 07/06/2023 by Kadeem Sen MD at [facility] Jaquez Lifesciences 03/09/2026 [id number] / [id number] / Garcia Vascular Device Clsr Perclose Prostyle Sut-Mediatd Closure-Repair Sys 74392-80 - [id number] Implanted:Qty: 1 on 07/06/2023 by Kadeem Sen MD at [facility] [employer]ascular 03/28/2025 37496-64 / / [id number] Garcia Vascular Device Clsr Perclose Prostyle Sut-Mediatd Closure-Repair Sys 64889-54 - [id number] Implanted:Qty: 1 on 07/06/2023 by Kadeem Sen MD at [facility] [employer] 03/28/2025 70430-97 / / [id number] Garcia Vascular Device Clsr Perclose Prostyle Sut-Mediatd Closure-Repair Sys 61465-70 - [id number] Implanted:Qty: 1 on 07/06/2023 by Kadeem Sen MD at [facility] [employer] 02/26/2025 23729-84 / / [id number] Garcia Vascular Device Clsr Perclose Prostyle Sut-Mediatd Closure-Repair Sys 01708-14 - [id number] Implanted:Qty: 1 on 07/06/2023 by Kadeem Sen MD at [facility] [employer] 03/28/2025 72536-46 / / [id number] Insurance MEDICARE [facility] MEDICARE [facility] MCR SUPPLEMENT MEDICARE MEDICARE GE MCR SUPPLEMENT [place] [id number] Advance Directives For more information, please contact: [phone] * Full Code (Latest Code Status on [...] 12:11 AM 03/09/2023 7:04 PM Care Teams Sheet Music Salesperson Relationship Specialty Start Date End Date Ry Veronica MD PCP - General Family Practice 06/07/23 Shola Mccray Jr., MD [address] [place] [address] Consulting Physician Cardiovascular Disease 02/03/22 Miscellaneous, Not In File 02/03/22 [place] [address] [facility] [address] [facility] [address] [place] [address] Surgeon Cardiothoracic Surgery 06/15/23
--- OUTSIDE RECORDS SUMMARY | 2025-04-04 00:33 | XMS_ITS | Clinical Summary ---
Author Organization [facility] Physician Office Building [address] [place] [address] Care Team Providers Care Mechanical Design Engineer Facilities Name Role Phone Mahendra Henderson MD, Shola Bryson Unavailable [phone] Miscellaneous, Not In File Unavailable Unava Ry Cevallos MD Primary Care Provider [phone] Matthew Harvey MD Unavailable Allergies Active Allergy Reactions Criticality Noted Date Comments Quinine Unknown long time ago , but hospitalized x2 Medications levothyroxine (SYNTHROID, LEVOTHROID) 50 mcg tablet Take 1 tablet (50 mcg total) by mouth stock clerk self service store before breakfast 9 Active artificial tears (ISOPTO [...] 07/02/2020 Assessment & Plan (11/11/2020 10:39 AM GUNITE NOZZLE OPERATOR): Patient is doing extremely well following [...] 10/16/2019 Assessment & Plan (11/20/2019 10:58 AM GUNITE NOZZLE OPERATOR): Patient's fracture is essentially healed. He should be working on ebgdz-zv-geqkmm exercises. Warm soaks may be helpful specially with colder weather. Assessment & Plan (10/16/2019 5:41 PM GUNITE NOZZLE OPERATOR): The patient has a nondisplaced fracture [...] humerus Assessment & Plan (12/06/2017 11:20 AM GUNITE NOZZLE OPERATOR): Patient no longer requires cast immobilization. Patient was advised warm soaks and stretching should be performed on a regular basis. He would like physical therapy was advised to call would be happy to arrange for him [place] of left foot 11/15/2017 Left supracondylar humerus f racmina, closed, initial encounter 11/08/2017 Assessment & Plan (11/08/2017 1:17 PM GUNITE NOZZLE OPERATOR): Patient was placed in a long-arm cast. His knee surgery for later this month was postponed as he will need to be able to weightbear through the left arm. He is return the office in four weeks for cast removal and follow-up films Arthritis of left knee 09/14/2017 Assessment & Plan (10/23/2020 4:04 PM GUNITE NOZZLE OPERATOR): Patient is at a point where [...] to be evaluated this week by his vp clinical and will get back to us on [...] than three times a week 06/09/2023 Attends [facility] Not on file 06/09 Active Member [...] staff should administer the PHQ-9) 0 03/07/2023 [facility] - Occupational Stress [...] place to sleep or slept in a longterm (including now)? 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 Not on file Not on file Obstetrics History Last Filed Vital Signs Vital Sign Reading Time Taken Comments Blood Pressure 145/83 11/16/2024 11:07 AM GUNITE NOZZLE OPERATOR Pulse 62 11/16/2024 11:07 AM GUNITE NOZZLE OPERATOR Temperature 36.8 C (98.2 F) 11/16/2024 11:07 AM GUNITE NOZZLE OPERATOR Respiratory Rate 18 11/16/2024 11:07 AM GUNITE NOZZLE OPERATOR Oxygen Saturation 94% 11/16/2024 11:07 AM GUNITE NOZZLE OPERATOR Inhaled Oxygen Concentration - - Weight 83.9 kg (185 lb) 11/15/2024 10:30 PM GUNITE NOZZLE OPERATOR Height 175.3 cm (5' 9 ) 11/15/2024 10:30 PM GUNITE NOZZLE OPERATOR Body Mass Index 27.32 11/15/2024 10:30 PM GUNITE NOZZLE OPERATOR Plan of Treatment Health Maintenance Due Date Last Done Comments Hepatitis B Screening 1958 Pneumococcal vaccine 65+ (1 of 2 - PCV) 1959 Zoster Vaccine (1 of 2) 1990 Well Visit 65+ 2005 DTaP/Tdap/Td Vaccine (1 - Tdap) 03/12/2019 9 Depression Screening 03/06/2024 03/06/2023, 03/06/20 23 Influenza Vaccine (Season Ended) 2025 08/25/2020, 08/25/2018, 08/23/2017, Additional history exists Fall Risk Assessment 11/16/2025 11/16/2024 Medical Devices Implanted Type Area Inside Sales Associate Device Identifier Shelf Expiration Date Model / Serial / Lot Tierra Sjapper Inc [id number] Persona 14mm 30+ Mm Knee Tibia Taper Extension Stem - [id number] Implanted:Qty: 1 on 08/28/2020 by Gualberto New MD at [facility] [employer]ierra [employer] Inc [id number] 06/22/2030 [id number] / / [id number] [facility] [employer] Inc Cm-9622f Surelock 2.2mm Flexible Resource Protection Specialist Preload 2 [place] Suture Uhmwpe - [id number] Implanted:Qty: 3 on 08/28/2020 by Gualberto New MD at [facility] Left: Patella [employer]ierra Bi[employer] Inc 05/19/2022 CM-9622F / / [id number] Tierra Biomet Inc [id number] 2.9mm Drill [place] Suture - [id number] Implanted:Qty: 1 on 08/28/2020 by Gualberto New MD at [facility] Left: Knee Tierra Biomet Inc 06/06/2021 [id number] / / [id number] Neurocrine Biosciences Medical Inc Cm-9329 Quattro Force Fiber Od2.9 Mm 2 Cannula Preload Unique Eyelet Design Glenoid [place] Suture Peek Shoulder Labral Repair System - [id number] Implanted:Qty: 1 on 08/28/2020 by Gualberto New MD at [facility] Left: Knee Tierra Biomet Inc 03/28/2021 CM-9329 / / [id number] KitLocateus Medical Inc [id number] [place] R High Viscosity Cement 40gm Bone Green - [id number] Implanted:Qty: 2 on 08/28/2020 by Gualberto New MD at [facility] [employer] Medical Inc [id number] 02/26/2023 [id number] / / [id number] Tierra Us Inc [id number] Persona 38mm Knee Component Patellar All Poly Sterile - [id number] Implanted:Qty: 1 on 08/28/2020 by Gualberto New MD at [facility] Left: Knee Tierra Biomet Inc [id number] 04/28/2026 [id number] / / [id number] Tierra Us Inc [id number] Persona Cemented Stem Knee Left 5d H Baseplate Tibial Tivanium - [id number] Implanted:Qty: 1 on 08/28/2020 by Gualberto New MD at [facility] Left: Knee Tierra Biomet Inc [id number] 10/28/2029 [id number] / / [id number] Tierra Us Inc [id number] Persona Cruciate Retain Cemented Knee Left 8 Standard Component - [id number] Implanted:Qty: 1 on 08/28/2020 by Gualberto New MD at [facility] Left: Knee Tierra [employer] Inc [id number] 05/28/2029 [id number] / / [id number] Neuro[employer]ine [employer] Medical Inc Cm-9622f Surelock 2.2mm Flexible Resource Protection Specialist Preload 2 [place] Suture Uhmwpe - [id number] Implanted:Qty: 1 on 08/28/2020 by Gualberto New MD at [facility] Left: Patella [employer]ierra Bi[employer] Inc 05/19/2022 CM-9622F / / [id number] Tierra Biomet Inc [id number] Persona 13mm Cruciate Retain Knee 8-11 Insert Articular Vivacit-E Latex Free - [id number] Implanted:Qty: 1 on 08/28/2020 by Gualberto New MD at [facility] [employer]ierra [employer] Inc [id number] 01/27/2024 [id number] / / [id number] [facility] Inc Cm-9129 Quattro Link 2.9mm Knotless [place] Suture Sterile Shoulder System - [id number] Implanted:Qty: 1 on 08/28/2020 by Gualberto New MD at [facility] Left: Knee Tierra Biomet Inc 07/24/2024 CM-9129 / / [id number] Lifenet Fatb Flexigraft 160mm Frozen Block Graft Soft Tissue Achilles Tendon - [id number] Implanted:Qty: 1 on 08/28/2020 by Gualberto New MD at [facility] Left: Patella Lifenet 10/17/2022 FATB / / [id number] Biotronik Inc 972023 Promri Solia S 60cm Lead Pacing Steroid Eluting - [id number] - [id number] Implanted:Qty: 1 on 02/02/2022 by Shola Mccray Jr., MD at [facility] Left: Chest Biotronik Inc 11/28/2023 971646 / [id number] / Biotronik Inc 202571 Solia S 53cm Steroid Elute Bipolar Active Fixation Endocardial - [id number] - [id number] Implanted:Qty: 1 on 02/02/2022 by Shola Mccray Jr., MD at [facility] Left: Chest Biotronik Inc 11/28/2023 118358 / [id number] / Biotronik Inc 652189 Edora Promri 67i47a6.5mm Dual Chamber Rate Adaptive Unipolar Bipolar - [id number] - [id number] Implanted:Qty: 1 on 02/02/2022 by Shola Mccray Jr., MD at [facility] Left: Chest Biotronik Inc 05/28/2023 731893 / [id number] / Jaquez Lifesciences Nadia 3 Commander Jaquez 26mm Transcatheter Ultra Low Profile [id number] - [id number] - [id number] Implanted:Qty: 1 on 07/06/2023 by Kadeem Sen MD at [facility] [employer] Lif[employer]iences 03/09/2026 [id number] / [id number] / Garcia Vascular Device Clsr Perclose Prostyle Sut-Mediatd Closure-Repair Sys 29488-86 - [id number] Implanted:Qty: 1 on 07/06/2023 by Kadeem Sen MD at [facility] [employer] 03/28/2025 61535-52 / / [id number] Garcia Vascular Device Clsr Perclose Prostyle Sut-Mediatd Closure-Repair Sys 16406-97 - [id number] Implanted:Qty: 1 on 07/06/2023 by Kadeem Sen MD at [facility] [employer] 03/28/2025 24308-61 / / [id number] Garcia Vascular Device Clsr Perclose Prostyle Sut-Mediatd Closure-Repair Sys 40995-54 - [id number] Implanted:Qty: 1 on 07/06/2023 by Kadeem Sen MD at [facility] [employer] 02/26/2025 48071-80 / / [id number] Garcia Vascular Device Clsr Perclose Prostyle Sut-Mediatd Closure-Repair Sys 70691-35 - [id number] Implanted:Qty: 1 on 07/06/2023 by Kadeem Sen MD at [facility] [employer] 03/28/2025 63989-22 / / [id number] Insurance MEDICARE [facility] SUPPLEMENT MEDICARE [facility] SUPPLEMENT MEDICARE MEDICARE [facility] SUPPLEMENT Advance Directives For more information, please contact: [phone] * Full Code (Latest Code Status on [...] 12:11 AM 03/09/2023 7:04 PM Care Teams Mechanical Design Engineer Facilities Relationship Specialty Start Date End Date Ry Veronica MD PCP - General Family Practice 06/07/23 Shola Mccray Jr., MD [address] [place] [address] Consulting Physician Cardiovascular Disease 02/03/22 Miscellaneous, Not In File 02/03/22 [place] [address] [facility] [address] [address] Surgeon Cardiothoracic Surgery 06/15/23
--- OUTSIDE RECORDS SUMMARY | 2025-04-04 00:33 | XMS_ITS | CONTINUITY OF CARE DOCUMENT ---
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 Erika Brown CHEST PAIN-TYPE TO BE DETERMINED active Citlaly Parks CARDIAC MURMUR active Shola Mccray MD FLUID OVERLOAD active Freda Davalos MD CAD completed - Shola Mccray MD HTN active Shola Mccray MD Aortic stenosis, severe-s/p porcine [...] Carotid artery stenosis active Chinedu Hay MD ENCOUNTERS Date Type Provider Location Encounter Diag nosis - In-person encounter Office Visit Shola Mccray MD [facility] - [facility]-person encounter Office Visit Shola Mccray MD [facility] - In-person encounter Office Visit Shola Mccray MD [facility] - In-person encounter Office Visit Shola Mccray MD [facility] - In-person encounter Office Visit Chinedu Hay MD [facility] Carotid artery stenosis - In-person encounter Office Visit Shola Mccray MD [facility] Peripheral Vascular Disease - In-person encounter Office Visit Shola Mccray MD [facility] - In-person encounter Office Visit Shola Mccray MD [facility] Atrial fib, paroxysmal - In-person encounter Office Visit Shola Mccray MD [facility] - In-person encounter Office Visit Shola Mccray MD [facility] - In-person encounter Office Visit Shola Mccray MD [facility] AV block, complete - In-person encounter Office Visit Shola Mccray MD [facility] - In-person encounter Office Visit Shola Mccray MD [facility] - In-person encounter Office Visit Shola Mccray MD [facility] - In-person encounter Office Visit Shola Mccray MD [facility] - In-person encounter Office Visit Shola Mccray MD [facility] DizzinessPalpitations - In-person encounter Office Visit Shola Mccray MD [facility] Aortic stenosis, severe-s/p porcine AVRAcute peptic ulcer - In-person encounter Office Visit Shola Mccray MD [facility] CAD - In-person encounter Office Visit Shola Mccray MD [facility] CARDIAC MURMURHTNAortic stenosis, severe-s/p porcine AVR - In-person encounter Office Visit Shola Mccray MD [facility] Office - In-person encounter Office Visit Shola Mccray MD [facility] - In-person encounter Office Visit Chinedu Hay MD [facility] - In-person encounter Office Visit Shola Mccray MD [facility] - In-person encounter Office Visit Chinedu Hay MD [facility] - In-person encounter Office Visit Shola Mccray MD [facility] SHORTNESS OF BREATH - In-person encounter Office Visit Shola Mccray MD [facility] - In-person encounter Office Visit Shola Mccray MD [facility] Aortic stenosis, severe-s/p porcine AVR - In-person encounter Office Visit Shola Mccray MD [facility] Aortic stenosis, severe-s/p porcine AVR - In-person encounter Office Visit Freda Davalos MD [facility] - In-person encounter Office Visit Freda Davalos MD [facility] - In-person encounter Office Visit Shola Mccray MD [facility] CARDIAC MURMURFLUID OVERLOADCADHTN VITAL SIGNS Date Observation Value Provider Body Mass Index (Ratio) 27.12 kg/m2 Ryder Mccray MD oxygen saturation, oximetry 95 % Dipti Nielsen pulse rate 64 /min Dipti Nielsen blood pressure, diastolic 67 mm[Hg] Daisy zimemrman [facility] blood pressure, systolic 125 mm[Hg] Janet castañeda [facility] weight E&M 189 [lb_av] Dipti [facility] height E&M 70 [in_i] Dipti [facility] Body Mass Index (Ratio) 27.12 kg/m2 Ryder [...] Conrado y height E&M 70 [in_i] Conrado [facility] y Body Mass Index (Ratio) 25.54 kg/m2 Ryder Mccray MD blood pressure, cuff size regular [facility] blood pressure, diastolic 66 mm[Hg] [facility] blood pressure, systolic 129 mm[Hg] Giovany [facility] pulse rate 51 /min Fior [place] respiratory rate E&M 15 /min Fior pillai oxygen saturation, oximetry 97 % [facility] [place] weight E&M 178 [lb_av] [facility] [place] height E&M 70 [in_i] [facility] [place] Body Mass Index (Ratio) 25.82 kg/m2 Jaylen Infante blood pressure, cuff size regular amyi Leonieer blood pressure, diastolic 70 mm[Hg] Ke rri Gruenenfelder blood pressure, systolic 120 mm[Hg] Mayi ri Natalieelder oxygen saturation, oximetry 99 % Prabha Natalieelder respiratory rate E&M 12 /min Prabha [facility] pulse rate 67 /min Prabha Nataliee [...] y Body Mass Index (Ratio) 25.97 kg/m2 Ryedr Mccray MD blood pressure, cuff size regular [...] mojica weight E&M 185 [lb_av] Rosalind Brittney omjica respiratory rate E&M 16 /min Katie bangura Jakub blood pressure, cuff size large Nan colorado Jakub height E&M 70 [in_i] Rosalind Brittney omjica Body Mass Index (Ratio) 27.40 kg/m2 Ryder [...] blood pressure, systolic 121 mm[Hg] Cat herine [place] oxygen saturation, oximetry 97 % Joelle [place] respiratory rate E&M 14 /min Catheri ne [place] pulse rate 64 /min Joelle Jose Alfredo weight E&M 192 [lb_av] Joelle [place] blood pressure, cuff size regular Ca therine [...] /min Trevor michelle weight E&M 187 [lb_av] Trevro michelle height E&M 70 [in_i] Trevor michelle Body Mass Index (Ratio) 26.83 kg/m2 Ryder Mccray MD blood pressure, cuff size regular Pascual rri Flako blood pressure, diastolic 68 mm[Hg] Ke rri Flako blood pressure, systolic 108 mm[Hg] Mayi maribel Arriola oxygen saturation, oximetry 98 % Prabha Arriola respiratory rate E&M 16 /min Prabha justin pulse rate 66 /min Prabha [facility] weight E&M 187 [lb_av] Prabha [facility] height E&M 70 [in_i] Prabha [facility] Body Mass Index (Ratio) 27.46 kg/m2 Ryder [...] [lb_av] Shakira quiñones height E&M 70 [in_i] Sahkira koenig blood pressure, diastolic 70 mm[Hg] Pascual [...] Gonsalo haines Lamb pulse rate 60 /min [facility] oxygen saturation, oximetry 98 % [facility] respiratory rate E&M 16 /min [facility] weight E&M 209 [lb_av] [facility] Body Mass Index (Ratio) 29.95 kg/m2 Gonsaloangelika [...] pressure, systolic, left arm 124 mm [Hg] [facility] blood pressure, diastolic, right arm 68 m m[Hg] [facility] blood pressure, systolic, right arm 118 m m[Hg] [facility], [facility] 68 mm[Hg] Neelima seph [place] blood pressure, systolic 118 mm[Hg] Benja eph [facility] pulse rate 56 /min [facility] oxygen saturation, oximetry 96 % [facility] respiratory rate E&M 16 /min [facility] weight E&M 206 [lb_av] [facility] respiratory rate E&M 16 /min Freda [...] [facility] 3.5-5.2 sodium, serum 140 mmol/L [facility] 926-499 5188/08 /26 urea nitrogen/creatinin e ratio, serum 14 [...] Not Estab. platelet count 150 X10E3/UL [facility] 233-676 0899/08 /25 red blood cell distribution width 13.7 [...] ratio (INR) 2.22 [facility] 0.90-1.20 High , [place] [address] prothrombin time (patient) 25.3 s [facility] 10.3-13.7 High C, [place] [address] activated partial thromboplastin time (aPTT) 62.0 s [facility] Units converted. See lab report for original value. High C, [place] [address] Absolute Basophils 0.0 K/CUMM [facility] 0.0-0.1 Normal C, [place] [address] Absolute Monocytes 0.4 K/CUMM [facility] 0.2-0.8 Normal , [place] [address] Absolute Lymphocytes 1.1 K/CUMM [facility] 0.8-3.3 Normal , [place] [address] Absolute Neutrophils 2.7 K/CUMM [facility] 1.7-6.5 Normal C, [place] [address] nucleated red blood cells as percent of [...] Low NT-pro BNP 2687 Link[facility] <=450 [place] [address] ferritin, serum 215 ng/mL [facility] 30-400 iron saturation percent, serum 18 % [facility] 15-55 iron, serum 61 ug/dL [facility] 38-169 iron binding capacity, unsaturated 280 ug/dL [facility] 929-053 0480/06 /21 iron binding capacity, total 341 ug/dL [facility] 235-122 1200/06 /21 lipoprotein, beta, serum, point, quantitative, calculated 108 mg/dL [facility] 0-99 High very low density lipoproteins 25 mg/dL [facility] 5-40 HDL cholesterol, serum 53 mg/dL [facility] >39 triglyceride, serum, random 127 mg/dL [facility] 0-149 cholesterol, serum 186 mg/dL [facility] 521-633 4285/06 /21 basophil count, absolute 0.0 x10E3/uL [facility] [...] Not Estab. platelet count 196 X10E3/UL [facility] 450-072 7571/06 /21 red blood cell distribution width 14.9 [...] mg/dL [facility] 0.0-1.2 albumin/globulin ratio, serum 1.8 [facility] 1.2-2.2 globulin, serum 2.7 [facility] 1.5-4.5 albumin, serum 4.8 g/dL [facility] 3.5-4.8 protein, total, serum 7.5 g/dL [facility] 6.0-8.5 calcium, serum 9.9 mg/dL [facility] carbon dioxide, venous blood 25 mmol/L [facility] 20-29 chloride, serum 104 mmol/L [facility] 96[facility]106 potassium, serum 4.3 mmol/L [facility] 3.5-5.2 sodium, serum 142 mmol/L [facility] 062-964 8521/06 /21 urea nitrogen/creatinin e ratio, serum 13 [facility] 10-24 eGFR if 105 mL/min/{1.73 _m2} [facility] >59 eGFR if not 91 mL/min/{1.73 _m2} [facility] >59 creatinine, serum 0.70 mg/dL [facility] 0.76-1.27 Low urea nitrogen, blood 9 mg/dL [facility] 8-27 blood glucose, random 91 mg/dL [facility] 65-99 alanine aminotransferase (SGPT), serum 35 1/L [facility] aspartate aminotransferase (SGOT), serum 38 1/L [facility] creatinine, serum 0.81 mg/dL [facility] potassium, serum 3.9 mmol/L [facility] sodium, serum 138 mmol/L [facility] international normalized ratio (INR) 1.2 Gwen Lamb prothrombin time (patient) 11.6 s [facility] basophils as percent of blood leukocytes [...] Normal Absolute Neutrophil count 1786 cells/mcL [facility] (0145-9314) Normal platelet count 150 THOUSAND/UL [facility] (140-400) [...] 1 tablet by mouth once a day [facility] Eliquis 5 mg tablet active Take 1 tablet by mouth twice a day Charla Koroma Atrial fib, paroxysmal OCEANIC-AF asundexian/placeb o or eliquis/placebo completed - Lizz Booker carvedilol 3.125 mg tablet completed - [facility] furosemide 40 mg tablet completed - [facility] Calcium 600 + D(3) 600 mg-5 [...] drug use no Justyna Ventimig mary kate [facility] alcohol use no Justyna Ventimig mary kate [facility] smoking status Never smoker Justyna Ventim iglia [facility] social history E&M Marital Statu s: L bora with family/friends E thnicity: Smoking History: P robby has never smoked. Shola Mccray MD social history revie wed E&M reviewed - no changes required Shola Mccray MD smoking status Never smoker Carolyn [place] social history E&M Marital Statu s: L bora with family/friends E thnicity: Smoking History: P robby is a former smoker. Shola Mcrcay MD social history revie wed E&M reviewed [...] exercise, frequency, days per week yes Joelle Jose Alfredo caffeine use, averag e drinks per day no Joelle Jose Alfredo passive cigarette sm nithin exposure yes Joelle [...] Prabha Estradajesse drug use none Prabha [facility]ime[facility]ille[facility] passive cigarette sm nithin exposure yes Prabha [...] Shakira Crawford alcohol use no Shakira Torre xeniaatlu caffeine use, averag e drinks per day no Shakira Crawford drug use none Shakira Torre xeniaatul passive cigarette sm nithin exposure yes Shakira Crawford smoking status Former smoker Shakira leanne social history E&M Marital Statu s: Radha bora with family/friends E thnicity: Smoking History: Heber bustamante is a former smoker. 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 Patient and I had long discussion. Given option of surgery (bilateral endarterectiomy) vs status quo/medical therapy. Patient states 'I'm 83 years old and do anything I want to. I don't believe I want to have surgery'. I think, given his lack of symptoms, this is the right decsion. Shola Mccray MD [id number],C, B P today: 111/59 P rior BP: 121/68 (07/13/2023) Labs Reviewed: C reat: 0.90 (07/24/2023) C hol: 95 (07/24/2023) HDL: 49 (07/24/2023) His updated medication list for this problem includes: Carvedilol 3.125 Mg Tablet (Carvedilol) Furosemide 40 Mg Tablet (Furosemide) Chinedu Hay MD [id number],S, Chinedu Hay MD [id number],C,P resents to office with headache, pt is concerned that this is related to his carotids. His last carotid duplex showed he has less than 50% stenosis in LICA and 50-69% ALEX. pt was reassured. Chinedu Hay MD [id number],S, Shola gutierrez MD [id number],S,In [facility]. Shola Mccray MD [id number],S, Shola gutierrez MD [id number],N,B ilateral femoral artery stenoses noted on CT TAVR and confirmed by angio during TAVR procedure. 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 Feels much better. Shola Mccray MD [id number],C,n ow hyoptensive will hold BB and entresto Justyna Ventimiglia [facility] [id number],C,i n setting of severe and CMP. Reginaldo hold BB and Entresto at this time to allow patient to take diuretic therapy and manage symptoms. Will resume others as BP tolerates Justyna Ventimiglia [facility] [id number],C,H e has been evaluated for TAVR and is planned of 07/06/23. He is symptomatic and will adjust meds to attempt to manage volume status until procedure date. Justyna Ventimiglia [facility] [id number],S, Shola gutierrez MD [id number],S, Shola gutierrez MD [id number],B, Shola Ramada n [place] [id number],B, Shola Ramada n [place] [id number],S, Shola Ramada n [place] [id number],N,N eeds OAC. W ill enroll in [facility] trial. Shola Ramadan [place] [id number],B, Shola Ramada n [place] [id number],S, Shola Ramada n [place] [id number],S, Shola Ramada n [place] [id number],S, Shola Ramada n [place] [id number],S, Shola Ramada n [place] [id number],B, Shola Ramada n [place] [id number],S, Shola Ramada n [place] [id number],S, Shola Ramada n [place] [id number],S, Shola Ramada n [place] [id number],S, Shola Ramada n [place] [id number],S, Shola Ramada n [place] [id number],S, Shola Ramada n VA [id number],S, Shola Ramada n [place] [id number],S, Shola Ramada n VA [id number],B, Shola Ramada n VA [id number],N,S/P PPM Shola Ramadan VA [id number],B, Shola Ramada n [place] [id number],S, Shola Ramada n [place] [id number],B, Shola gutierrez MD [id number],B, Shola gutierrez MD [id number],S,ECHO in 1 yea r to eval valve. [...] will hold BB and entresto Justyna Ventimiglia [employer] [facility] Cardiology:in settin g of severe and CMP. Reginaldo hold BB and Entresto at this time to allow patient to take diuretic therapy and manage symptoms. Will resume others as BP tolerates Justyna Ventimiglia [facility] Cardiology:He has be en evaluated for TAVR and is planned of 07/06/23. He is symptomatic and will adjust meds to attempt to manage volume status until procedure date. Justyna Ventimiglia [facility] Shola Mccray MD Cardiology Shola Mccray [...] Mccray MD [facility] Follow up Ra adrai Mccray MD [facility] Follow up Ra [...] ..... One tab. daily Orders: E KG (CPT-66833) Shola Mccray MD F/U: H is updated medication list for this problem includes: Aspirin 325 Mg Tabs (Aspirin) ..... One tab. daily Shola Mccray MD F/U: O rders: C omplete Echo (CPT-29184) Shola Mccray MD F/U: H is updated medication list for this problem includes: Aspirin 325 Mg Tabs (Aspirin) ..... One tab. daily Orders: X -Ray, Chest, PA & Lateral (CPT-26492) Shola Mccray MD follow up: H is [...] ..... One tab. daily Orders: E KG (CPT-69425) Chinedu Hay MD follow up: H is [...] follow up: O rders: C omplete Echo (CPT-08031) Shola Mccray MD follow up:will check a [...] ..... One tab. daily Orders: E KG (CPT-70481) S tress Test - Adenosine (53226) Shola Mccray MD chest pain: His updated [...] and contractility. (12/15/2010) Orders: C omplete Echo (CPT-88242) Shola Mccray MD hospital follow up: H [...] follow up: O rders: C omplete Echo (CPT-09004) BP today: 118/68 Prior BP: 145/79 (11/20/2010) [...] EKG Shola Mccray MD complete d SNOMED-CT: 884526746 169091 Current Medications Documented Shola Mccray MD completed EKG Shola Mccray MD complete d SNOMED-CT: 310857384 817868 Current Medications Documented Shola Mccray MD completed EKG Shola Mccray MD complete d DLCO - 78405 Shola Mccray MD comple meagan FRC - 66000 Shola Mccray MD complet ed FVC - 13286 Shola Mccray MD complet ed EKG Chinedu Hay MD completed EKG Chinedu Hay MD completed EKG Lauryn Hanks completed EKG Iveth Pearson MD complet ed
--- OUTSIDE RECORDS SUMMARY | 2025-04-04 00:34 | XMS_ITS | Clinical Summary ---
Author Organization [facility] Address [facility] [place] [address] Care Team Providers Care Residential Appraiser Name Role Phone Ry Veronica MD Primary Care Provider [phone] Encounters Date Type Department Care Team Description 02/20/2025 12:34 PM CDT - 02/20/2025 11:59 PM CDT Hospital Encounter [facility] [address] [place], [place] [id number] Anabella Mclain MD Discharge Disposition: Home or Self Care (Routine Discharge) 02/20/2025 Travel from Last 3 Months Social History Tobacco Use Types Packs/Day Years Used Date Smoking Tobacco: Never Assessed Sex and Gender Information Value Date Recorded Sex Assigned at Male 02/20/2025 12:29 PM CDT 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 Gender Identity Not on file Sexual Orientation Not on file Plan of Treatment Health Maintenance Due Date Last Done Comments Pneumococcal Vaccine: 50+ Years (1 of 1 - PCV) 1990 Annual Medicare Wellness Visit 2005 DTaP, Tdap and Td Vaccines (1 - Tdap) 03/12/2019 03/11/2019 PHQ-2 (Physician [place]) 11/29/2024 COVID-19 Vaccine ( season) 2025 08/08/2024, 08/31/2023, 08/13/2022, Additional history exists RSV Immunization or 60+ Years Completed 10/02/2023 Zoster Vaccines Completed 11/18/2023, 09/17/2023 Meningococcal B Vaccine Aged Out No l onger eligible based on patient's age to complete this topic Meningococcal Vaccine Aged Out No darren mala eligible based on patient's age to complete this topic RSV Immunizations Under 20 Months Aged Out No longer eligible based on patient's age to complete this topic Medical Devices Implanted Type Area Spar Cap Beveler Device Identifier Shelf Expiration Date Model / Serial / Lot Ra Lead Implant-02/03/20 Implanted:Qty: 1 on 02/02/2022 Lead Implant Right: Atrium BIOTRONIK SOLIA S 53 MODEL [id number] / [id number] / Rv Lead Implant-02/03/20 Implanted:Qty: 1 on 02/02/2022 Lead Implant Right: Ventricle BIOTRONIK SOLIA S 60 MODEL [id number] / [id number] / Pacemaker-2021 Implanted:Qty: 1 on 02/02/2022 Pacemaker Chest Spinlight StudioRONIK EDORA 8 DR-T MODE [id number] / [id number] / Description:MR CONDITIONAL A T 1.5 T [...] intracranial abnormality. 2. 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 Multiplanar, multisequence MR imaging of the brain was performed without intravenous contrast. INDICATION: Polyneuropathy. COMPARISON: None. FINDINGS: No acute ischemia, infarct, or intracranial hemorrhage. No mass effect, midline shift, or acute osseous abnormality. Generalized age appropriate atrophy. The sulci are prominent but within normal limits for age. Ventricles are normal for age. No abnormal extra-axial fluid collections. Qoku-vi-mslbaery nonspecific confluent and nodular foci of FLAIR [...] seen in the major vessels of the [place]. 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 Mild chronic mucosal thickening in bilateral ethmoid air cells. No significant paranasal sinus or mastoid air cell disease. Visualized orbits are unremarkable. Procedure Note Courtney Bhatia MD - 02/21/[address] [address] EXAMINATION: MRI BRAIN WO CONTRAST. Multiplanar, multisequence MR imagingof the brain was performed without intravenous contrast. INDICATION: Polyneuropathy. COMPARISON: None. FINDINGS: No acute ischemia, infarct, or intracranial hemorrhage. No masseffect, midline shift, or acute osseous abnormality. Generalized ageappropriate atrophy. The sulci are prominent but within normal limits forage. Ventricles are normal for age. No abnormal extra-axial fluidcollections. Ycbw-px-xqhxupei nonspecific confluent and nodular foci ofFLAIR and [...] are seen in themajor vessels of the [place]. Developmental aplasia of the leftfrontal sinus. Mild chronic mucosal thickening in bilateral ethmoid aircells. No significant paranasal sinus or mastoid air cell disease.Visualized orbits are unremarkable. IMPRESSION: 1. No acute intracranial abnormality. 2. Generalized age-appropriate atrophy with ygbn-sw-xdziosry nonspecificchronic cerebral white matter microvascular disease in [...] 12:45 PM Narrative 02/20/2025 12:47 PM CDT [place] [address] Examination: Chest x-ray 1 view Exam date/time: [...] Procedure Note Ga Fraser MD - 02/20/2025 [place] [address] Examination: Chest x-ray 1 view Exam date/time: [...] Result from Last 3 Months Insurance MEDICARE [facility] Care Teams Residential Appraiser Relationship Specialty Start Date End Date Ry Veronica MD [address] [place] [address] PCP - General FAMILY PRACTICE 3/25/25
--- NOTE | 2025-04-04 07:00 | WPDHPUPDATE1 ---
History and Physical Update Update Date/Time: 04/04/25 07:00 Patient seen and examined in pre-operative holding area. No interval change in medical history or symptoms. Patient recalls previous discussion of benefits and alternatives to procedure. Continues to desire to proceed with right ring finger a1 terese release possible pipjoint capsulotomy. Reviewed procedure, post-op expectations and risks including but not limited to bleeding, infection, injury to tendon/nerve/vessel, decreased hand function, stiffness, RSD, no change or worsening of symptoms. I discussed the possible use of assistants and their participation in the case. Patient stated understanding and signed the consent form wishing to proceed.
--- NOTE | 2025-04-04 07:01 | P.OP_ITS ---
Procedure Note - Detailed Date of Procedure 04/04/25 Pre-op Diagnosis Right Ring Trigger Finger Post-op Diagnosis Same Procedure Performed right ring finger a1 and partial A2 terese release Surgeon Hardy Sharma MD [employer] amor gregory pa-c Anesthesia MAC Description of Procedure INFORMED CONSENT: The patient was seen and examined and marked in the pre-op area.? The patient signed the consent form. PROCEDURE IN DETAIL:The patient taken back to OR on the stretcher in supine position. Time out performed with anesthesia, surgeon and staff agreeing on patient's name site and surgery to be performed SCDs were placed on the lower extremities and inflated. A tourniquet was placed on {right} upper extremity and antibiotics given IV After anesthesia administered sedation I injected {3}cc 1%lido and 0.5% marcaine plain at the operative site The?{right upper extremity}?was prepped and draped in sterile fashion the??{right upper extremity} was? exsanguinated with Esmarch bandage and tourniquet inflated to 250mmHg I proceeded with making a longitudinal incision over the right ring finger a1 terese through skin and dermis with a 15 blade scalpel. Littler scissors were used to spread through subq down to the terese. 15 blade was used for initial incision over th terese and then littler scissors were used to spread above it and proximally and distally and completed the transection entireley. There was signficant improvement and ability to extend the finger straight with minimal ~5 degree pip joint contracture/stiffness. Ragnell retractors were used to withdraw the fds and fdp tendons for inspection. They were free of masses and synovitis and gliding smoothly though slight triggering at the proximal edge of a2 terese noted. I release the proximal 25 %of a2 terese and reassessed the tendons which were now gliding smoothly without triggering. I irrigated with normal saline and closed with 4-0 chromic. A dressing of xerfoorm, 4x4, gerard, was applied after the tourniquet was let down noting the hand was warm and well perfused. The patient was then awaken from anesthesia and transferred to the recovery room in stable condition.? Complications - none EBL- 0cc Disposition - home in stable conditions amor gregory pa-c was essential for positioning, retraction, closure and dressing placement [facility] Billing Surgery - Charge Forward: Surgery Billing ([id number] same for amor adding modifier )
[2025-04-04 10:36] VITALS: BP 126/76; PULSE 58; RESP 18; TEMP 36.4; O2SAT 98
[2025-04-04] MEDS: LACTATED RINGERS 1,000 ML 30 ML IV CONT (11:10)
--- NOTE | 2025-04-04 12:13 | WPDANESEPPF ---
Anes - Initial Pre Proc Eval Procedure: Operation Date: 04/04/25 12:15 Proposed Procedures p Right Ring Trigger Finger Release with Capsulotomy - Hardy Sharma MD Date/Time: 04/04/25 12:13 Surgeon: Hardy Sharma MD Pre Op Diagnosis: Right Ring Trigger Finger Patient Data Age: 84 Gender: M Height: 1.75 m Weight: 83.3 kg Last Vital Signs Temp 36.4 C 04/04/25 10:36 Pulse 58 L 04/04/25 10:36 Resp 18 04/04/25 10:36 BP 126/76 04/04/25 10:36 Pulse Ox 98 04/04/25 10:36 O2 Del Method Room Air 04/04/25 10:36 Allergies Allergy/AdvReac Type Severity Reaction Status Date / Time No Known Allergies Allergy Unknown Verified 04/04/25 10:40 Home Medications ?Medication ?Instructions ?Recorded ?Confirmed ?Type triamcinolone acetonide 0.5 % 1 applic topical BID #45 grams 07/29/23 03/29/25 Rx topical cream apixaban 5 mg tablet (Eliquis) 5 mg PO BID 12/02/23 04/04/25 History atorvastatin 40 mg tablet (Lipitor) 40 mg PO DAILY #30 tabs 10/09/24 04/04/25 Rx donepezil 10 mg tablet See Rx Instructions .Route 10/09/24 04/04/25 Rx .COMPLEX #90 tabs memantine 10 mg tablet See Rx Instructions .Route 10/09/24 04/04/25 Rx .COMPLEX #180 tabs levalbuterol tartrate 45 2 inh inhalation Q4-6H PRN 01/23/25 03/29/25 Rx mcg/actuation aerosol inhaler shortness of breath #15 grams levothyroxine 50 mcg tablet 50 mcg PO DAILY #90 tabs 01/29/25 04/04/25 Rx sertraline 50 mg tablet 50 mg PO DAILY #30 tabs 02/12/25 04/04/25 Rx Patient hx anesthesia problems: none Family hx anesthesia problems: none Results Review: All pre-operative results and documents have been reviewed as part of the pre-operative evaluation. [facility] Past Medical History Medical History Impacted cerumen of right ear Chronic anticoagulation Elevated troponin Facial basal cell cancer Hyperlipidemia Hypothyroidism Mild cognitive impairment Closed fracture of right clavicle (02/2023) Distal clavicle. Complete heart block Status post permanent pacemaker insertion. 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 Arthritis Hearing loss Wears glasses Claustrophobia Major depressive disorder, single episode, unspecified Vitamin D deficiency Surgical History Surgical History Status post aortic valve replacement with bioprosthetic valve History of basal cell carcinoma excision History of open reduction and internal fixation (ORIF) procedure Repair left arm fracture. History of aortic valve replacement with bioprosthetic valve History of permanent cardiac pacemaker placement History of carpal tunnel release History of bilateral knee replacement Family History Family History Sibling Patient's sister is in good health Family history of lung cancer, Onset Age: 76 Patient's brother is Father Family history of malignant neoplasm, Onset Age: 89 Patient's father is Mother Patient's mother is Social History Social History Social History: Surrogate medical decision maker: Perlita Garcialee, spouse. Code status: Full code. Smoking packs per day: 1 Smoking cigarettes per day: 20.0 Years smoked: 10 Smoking pack-years: 10.00 Smoking status: Former smoker Tobacco type: cigarettes Smokeless tobacco user: chewing tobacco Smoking end date: 11/29/69 Alcohol intake: current Drinks per week: 3 Alcohol use details: not that many anymore Substance use: never Substance use type: does not use Lack of Transportation: No Lack of Food: Never True Current Housing: I Have Housing Concerned About Future Housing: No Difficulty Paying Gas/Electric Bills: No Difficulty Paying for Meds: No Currently Unemployed: No Education: Associate Degree Difficulty w/ Childcare or Family Care: No Living arrangements: with family Additional living arrangements comments: Occupation/Education: retired Additional occupation/education comments: Retired from [employer], worked for the government for many years as well. Spiritual care concerns: No Anes - Eval Final PreProcedure Day of Procedure 04/04/25 12:13 Patient weight: normal Heart: regular rate and rhythm Lungs: decreased breath sounds Neurological: other (alert) Last oral intake: >/= 8 hours ASA classification: IV Emergent: no Anesthetic plan: proceed Anesthesia type and monitoring: general GIVS and standard monitoring Results Review: All pre-operative results and documents have been reviewed as part of the pre-operative evaluation. Informed Consent: The patient's anesthetic plan and its attendant risks and benefits were discussed with the patient/family/POA. Questions were solicited and answers provided to the satisfaction of the patient/family/POA.
[2025-04-04] MEDS: ceFAZolin 2 GM/D5W 50 ML 2 GM/50 ML BAG IVPB (12:30)
[2025-04-04] MEDS: BUPivacaine HCL 0.5% 10 ML AMP INFILTRATE (12:35)
[2025-04-04] MEDS: LIDOCAINE 1% LOCAL INJ 10 ML VIAL INFILTRATE (12:39)
[2025-04-04] MEDS: BACITRACIN OINTMENT 15 GM TUBE 1 APPLIC TOPICAL (12:50)
[2025-04-04 13:00] VITALS: BP 103/55; PULSE 48; TEMP 36.6; O2SAT 98
[2025-04-04 13:18] VITALS: BP 125/80; PULSE 59
[2025-04-04 13:40] VITALS: BP 124/68; PULSE 59
== END 2025-04-04 14:00 | disposition home or self-care (01) ==
PROVIDERS: PCP Nurse Practitioner Family; Visit Provider Plastic Surgery
PROC: (CPT 26055; principal; 2025-04-04 12:15)
DX: M65.341 Trigger finger, right ring finger (principal)
CPT/HCPCS: 26055; J0690; J2003; J2704; J3010; J7120